=== PATIENT | male | born 1980 | race Caucasian/White ===

== ENCOUNTER 2020-07-18 18:49 | Emergency (ER) | payer OTHER, SELFPAY ==
[2020-07-18 19:03] VITALS: BP 130/82; PULSE 72; RESP 16; TEMP 37.1; O2SAT 97; BMI 28.2
[2020-07-18] MEDS: Fluorescein Sodium STRIP 1 STRIP EYE-BOTH (19:15)
[2020-07-18] MEDS: Tetracaine HCl/PF 0.5% Oph Sol 4 ML DROPS 1 DROP EYE-BOTH (19:15)
--- NOTE | 2020-07-18 19:29 | ED_ITS ---
HPI - Eye Problem General Chief complaint: Eye Problems Stated complaint: eye problem Time Seen by Provider: 07/18/20 18:59 Source: patient Mode of arrival: ambulatory Limitations: no limitations History of Present Illness HPI Narrative: 40-year-old male previously healthy here with eye irritation, pain and some blurry vision to the left eye after getting saw dust in his eye. chief complaint: eye pain and eye redness Onset (ago): hour(s) Onset description: sudden Duration: constant Location: left eye Eye Symptoms: redness, pain and foreign body sensation Place: home Mechanism: none Severity: mild Associated symptoms: none Treatments Prior to Arrival: none Related Data Previous Rx's Medication Instructions Recorded erythromycin 0.5 inch OPHTHALMIC (EYE) BID 7 07/18/20 Days #1 g ibuprofen 800 mg PO Q8H PRN #20 tab 07/18/20 Allergies Allergy/AdvReac Type Severity Reaction Status Date / Time shellfish derived Allergy Difficulty Verified 07/18/20 19:03 Breathing FRUIT Allergy Unknown ITCHY Uncoded 04/04/20 16:21 THROAT tree fruit Allergy Unknown hives Uncoded 01/18/20 00:00 Review of Systems Review of Systems: Yes all other systems are reviewed and are negative Constitutional: Constitutional: Reports no additional constitutional compl aints, Denies body ache(s), Denies chills, Denies fever(s), Denies headache(s) and Denies weakness Eyes: Eyes: Reports no additional eye complaints, Denies change in vision, Reports irritation, Reports eye pain and Reports photophobia ENT: Reports system reviewed and no additional complaints, except as documented, Denies dizziness, Denies headache(s), Denies nasal congestion, Denies nasal discharge and Denies neck pain Cardiovascular: Cardiovascular: Reports no additional cardiovascular complaints, Denies chest pain, Denies leg edema and Denies dyspnea Respiratory: Respiratory: Reports no additional respiratory complaints, Denies cough and Denies dyspnea Gastrointestinal: Gastrointestinal: Reports no additional gastrointestinal complaints, Denies abdominal pain, Denies diarrhea, Denies nausea and Denies vomiting Genitourinary: Genitourinary: Denies urinary incontinence Musculoskeletal: Musculoskeletal: Reports no additional musculoskeletal complaints, Denies back pain, Denies arthralgias, Denies joint swelling, Denies neck pain, Denies numbness and Denies tingling Integumentary/Breasts: Skin/Breast: Reports system reviewed and no additional complaints, except as docu and Denies rash Neurologic: Reports system reviewed and no additional complaints, except as documented, Denies Abnormal speech present, Denies dizziness, Denies headach e(s), Denies numbness, Denies tingling and Denies weakness PMFSH Past Medical History Attestation statement: The following information was validated with the patient. Source: old records reviewed and nursing notes reviewed Medical History Erectile dysfunction History of opioid abuse Seasonal allergies Surgical History History of amblyopia Family History Family History Father HTN (hypertension) Stroke Mother Hypothyroidism Anxiety Stroke Diabetes mellitus HTN (hypertension) Sister HTN (hypertension) Paternal Grandfather No problems noted. Paternal Grandmother Alzheimer's disease Brother No problems noted. Sister No problems noted. Daughter No problems noted. Daughter No problems noted. Social History Social History Smoking Status: Never smoker Use of substances other than those prescribed or required for medical reasons: No Advance Directives: No Physical Exam Vital Signs: Vital Signs: Last Vital Signs Temp 98.8 F 07/18/20 19:03 Pulse 72 07/18/20 19:03 Resp 16 07/18/20 19:03 BP 130/82 07/18/20 19:03 Pulse Ox 97 07/18/20 19:03 Body Mass Index 28.2 Const: General: cooperative, healthy appearing, comfortable and no acute distress Orientation/consciousness: patient oriented x3 Limitations: no limitations HENMT: Head: Yes normal to inspection Ears: hearing grossly normal bilaterally General nose exam: Normal external nose present Face and sinus: Yes normal facial exam Mouth: Normal oral and palatal mucosa present Throat: Yes posterior oropharynx normal Eyes: General: appearance normal, both eyes and all related structures Visual Akins: normal visual akins by confrontation Alignment and Position: alignment normal Periorbital: periorbital findings normal Eyelids: Yes eyelids normal Conjunctivae: conjunctival abnormal left conjunctival injection Sclerae: sclerae normal Corneas: corneas abnormal on the left (At the 3 o'clock position there is a abrasion over the cornea. No foreign body ) and fluorescein used Pupils: Equal, round and reactive pupils present Direct Ophthalmoscopy: photophobia Neck: Neck: Yes normal visual inspection Chest: Chest palpation & inspection: normal inspection of the chest Resp: Effort & Inspection: normal respiratory effort Auscultation: clear to auscultation bilaterally Cardio: Rate: regular rate Rhythm: regular rhythm Peripheral pulses: Peripheral pulses 2+ throughout GI: Inspection: Yes normal to inspection Palpation (GI): Soft to palpation and nontender Auscultation: normal bowel sounds Back/Spine/Pelvis: Thoracic/Lumbar Spine: thoracic and lumbar spine normal to inspection Skin: General skin exam: no rashes or lesions noted Neuro: General: patient oriented x3, no focal motor deficits and normal sensation to monofilament Cranial nerves: Yes Equal, round and reactive pupils present Cognition (Neuro): normal cognition Speech: No Abnormal speech present Gait exam (Neuro): Normal gait present Motor exam (neuro): 5/5 motor strength present throughout Extrem: General: Yes normal to inspection Course Course Course Narrative: Left eye corneal abrasion. The visual acuity. Patient was given erythromycin ointment to the left eye. Will have him follow up outpatient with Ophthalmology. Reviewed worrisome signs and symptoms and when to return to the emergency department. Comfortable discharge home. Discharge Plan Discharge Clinical Impression: Corneal abrasion Qualifiers: Encounter type: initial encounter Laterality: left Qualified Code(s): S05.02XA - Injury of conjunctiva and corneal abrasion without foreign body, left eye, initial encounter Patient Disposition: Home, Self-Care Instructions: Corneal Abrasion (ED) Additional Instructions: Cool compresses, rest the eyes Typically improves after couple of days if no improvement for 5 days follow-up with Dr. Lopez from Ophthalmology Prescriptions: New erythromycin 5 mg/gram (0.5 %) ointment 0.5 inch ophthalmic (eye) BID 7 Days Qty: 1 RF: 0 ibuprofen 800 mg tablet 800 mg PO Q8H PRN (Reason: pain) Qty: 20 RF: 0 Referrals: Bill Lopez [Physician] - 5 days (if no better ) Interventions: ED Discharge Assessment Last Done: 07/18/20 19:37 Discharge Date/Time: 07/18/20 19:37
[2020-07-18] MEDS: Erythromycin Base 0.5% Oph Oin 1 GM TUBE 1 CM EYE-LEFT (19:31)
== END 2020-07-18 19:37 | disposition home or self-care (01) ==
PROVIDERS: Emergency Provider Emergency Medicine
DX: S05.02XA Injury of conjunctiva and corneal abrasion without foreign body, left eye, initial encounter (principal); H57.12 Ocular pain, left eye; X58.XXXA Exposure to other specified factors, initial encounter; Y93.9 Activity, unspecified; Y92.9 Unspecified place or not applicable; Y99.9 Unspecified external cause status; Z79.899 Other long term (current) drug therapy
CPT/HCPCS: 99283

== ENCOUNTER 2021-01-13 10:28 | Emergency (ER) | payer OTHER, SELFPAY ==
--- NOTE | ~2021-01-13 | XR_ITS ---
EXAMINATION: XR FINGER, LEFT CLINICAL INFORMATION: Trauma COMPARISON: None TECHNIQUE: Three views of the left third. FINDINGS: The bones and soft tissues are normal. No fracture. Alignment is anatomic. Joint spaces are normal. XR/XR finger LT min 2V IMPRESSION: Unremarkable exam.
[2021-01-13 11:15] VITALS: BP 140/87; PULSE 80; RESP 18; TEMP 36.8; O2SAT 97; BMI 26.4
--- NOTE | 2021-01-13 12:12 | ED.EXTPRO ---
HPI - Extremity Problem General Chief complaint: Extremity Injury, Upper Stated complaint: finger injury Time Seen by Provider: 01/13/21 12:12 Source: patient Mode of arrival: ambulatory Limitations: no limitations History of Present Illness HPI Narrative: 40 y/o male presenting to the ED from home c/o left index finger pain after he injured it yesterday. He was helping his daughter make her bed and when he shoved his hand down into the blankets between the wall and bed, he jammed his middle finger. When he took it out the tip was bent laterally. He pulled it back into position and heard a pop. He reports continued pain and discomfort this morning. He is able to complete flex and extend the finger but it is uncomfortable. No lacerations or ecchymosis or swelling. MD Complaint: joint paint Onset (ago): day(s) Pain Consistency: constant Location: left and upper extremity Severity scale (1-10): 5 Quality: aching Radiation: none Relieving factors: immobilization and rest Exacerbating factors: range of motion and palpation Associated symptoms: denies other symptoms Related Data Home Medications Medication Instructions Recorded Confirmed trazodone 50 mg tablet 50 mg PO BEDTIME 08/29/20 09/02/20 Previous Rx's Medication Instructions Recorded ibuprofen 800 mg PO Q8H PRN #20 tab 07/18/20 buspirone 5 mg tablet 5 mg PO TID #90 tab 08/29/20 Allergies Allergy/AdvReac Type Severity Reaction Status Date / Time shellfish derived Allergy Difficulty Verified 01/13/21 11:15 Breathing tree fruit Allergy Intermediate hives Uncoded 01/13/21 11:15 FRUIT Allergy Mild ITCHY Uncoded 01/13/21 11:15 THROAT Review of Systems Review of Systems: Constitutional: No Fever, No Chills Gastrointestinal: + Nausea, No Vomiting Musculoskeletal: + joint pain, No Myalgias Skin: No Skin Lesions, No rash Neuro: No Weakness, No Numbness Heme/Lymph: No Bruising PMFSH Past Medical History Attestation statement: The following information was validated with the patient. Medical History Erectile dysfunction Generalized anxiety disorder History of opioid abuse Seasonal allergies Surgical History History of amblyopia Family History Family History Father HTN (hypertension) Stroke Mother Hypothyroidism Anxiety Stroke Diabetes mellitus HTN (hypertension) Sister HTN (hypertension) Paternal Grandfather No problems noted. Paternal Grandmother Alzheimer's disease Brother No problems noted. Sister No problems noted. Daughter No problems noted. Daughter No problems noted. Social History Social History (Updated 09/02/20 @ 00:38 by Kristina Doe MD) Substance Use Type: Opiates Advance Directives: No Advance Directives Information Provided: No Physical Exam Vital Signs: Vital Signs: Last Vital Signs Temp 98.3 F 01/13/21 11:15 Pulse 80 01/13/21 11:15 Resp 18 01/13/21 11:15 BP 140/87 H 01/13/21 11:15 Pulse Ox 97 01/13/21 11:15 Body Mass Index 26.4 Appearance: Alert. Oriented X3. No acute distress. HEENT: normal inspection CVS: Normal heart rate and rhythm. Pulses normal. Respiratory: No respiratory distress. Skin: Skin warm and dry. Normal skin color. Normal skin turgor. No rashes. Extremities: normal appearing left hand. DIP of left index finger with some tenderness on palpation, normal flexion and extension of all joints in all fingers. NV intact distally. equal investigation specialist strength Neuro: Oriented X 3. No motor deficit. No sensory deficit. Course Course Course Narrative: 40 yo male presenting with left index finger pain s/p possible dislocation and relocation of DIP joint yesterday. XR is normal. He has full function of his finger. Placed in splint for comfort. Will have him f/u with PCP for further management. Discharge Plan Discharge Clinical Impression: Finger sprain Qualifiers: Encounter type: initial encounter Finger: middle finger Sprain of finger site: unspecified site Laterality: left Qualified Code(s): S63.613A - Unspecified sprain of left middle finger, initial encounter Patient Disposition: Home, Self-Care Instructions: Finger Sprain (ED) Additional Instructions: Your x-ray was normal. Wear the finger splint as needed for comfort for the next 24-48 hours. Take motrin and/or tylenol as needed for pain. Follow up with your doctor as needed. Prescriptions: No Action ibuprofen 800 mg tablet 800 mg PO Q8H PRN (Reason: pain) Qty: 20 RF: 0 trazodone 50 mg tablet 50 mg PO BEDTIME RF: 0 buspirone 5 mg tablet 5 mg PO TID Qty: 90 RF: 0 Interventions: ED Discharge Assessment Last Done: 01/13/21 13:57 Discharge Date/Time: 01/13/21 13:57
[2021-01-13] MEDS: Ketorolac Tromethamine 30 MG/ML VIAL IM (12:34)
== END 2021-01-13 13:57 | disposition home or self-care (01) ==
PROVIDERS: Emergency Provider Emergency Medicine Emergency Medical Services; PCP Internal Medicine
DX: S63.611A Unspecified sprain of left index finger, initial encounter (principal); W23.1XXA Caught, crushed, jammed, or pinched between stationary objects, initial encounter; Y93.89 Activity, other specified; Y92.003 Bedroom of unspecified non-institutional (private) residence as the place of occurrence of the external cause; Y99.9 Unspecified external cause status
CPT/HCPCS: 29130; 73140; 96372; 99283; 99284; J1885

== ENCOUNTER 2021-02-02 17:27 | Emergency (ER) | payer OTHER, SELFPAY ==
[2021-02-02 17:46] VITALS: BP 133/89; PULSE 92; RESP 18; TEMP 37.1; O2SAT 98; BMI 26.3
--- NOTE | 2021-02-02 17:46 | MHC.RECOVSUP ---
? Reason for consult Recovery Support o Current location: ED Waiting Room o Identified substance use concern: Fentanyl - Withdrawal - Support ? Intervention: o Community resources provided o Harm reduction discussion ? Plan: o Referral to [facility] o Patient to follow up with [facility] after discharge ? Additional information: Patient withdrawing from Fentanyl.. Tried took a suboxone to deal with withdrawal and had a bad reaction.. Patient stated that he want help.. I Provided patient with [facility] walk in information so patient could start MAT.
[2021-02-02 18:25] LABS: Glucose Urine UA NEG (NEG); Leukocyte Esterase Urine NEG (NEG); Nitrite Urine NEG (NEG); Specific Gravity - Urine 1.025 (1.005-1.025); Urine Blood NEG (NEG); Urine Ketones 15 MG/DL (NEG); Urine Protein 1+ MG/DL (NEG-TRACE)
[2021-02-02 18:28] LABS: Appearance Urine CLEAR; Color Urine YELLOW
[2021-02-02 18:37] LABS: Amorphous Sediment Urine TRACE /LPF; Bacteria Urine TRACE /LPF; RBC Urine 0 /HPF (0); Squamous Epithelial Cell Urine TRACE /LPF; WBC Urine 0 /HPF (0-4)
[2021-02-02 19:27] LABS: Amphetamine Screen Urine Not Detected (Not Detect); Barbiturates, Urine Not Detected (Not Detect); Benzodiazepines Screen Urine Not Detected (Not Detect); Cannabinoid Screen Urine Not Detected (Not Detect); Cocaine Screen Urine Not Detected (Not Detect); Opiate Screen Urine Not Detected (Not Detect); Phencyclidine Screen Urine Not Detected (Not Detect)
--- NOTE | 2021-02-02 21:36 | ED.GENADULT ---
HPI - General Adult General Chief complaint: General Medical Stated complaint: Withdrawal Time Seen by Provider: 02/02/21 21:24 Source: patient Mode of arrival: ambulatory History of Present Illness HPI narrative: 40-year-old male with known heroin dependence and has been in detox programs previously took Suboxone today and then took additional drugs an hour later. Patient states that he is suffering mild withdrawal with 2 episodes of diarrhea. Otherwise, he denies fever, chills, chest pain/palpitations, nausea/vomiting. Patient denies suicidal or homicidal ideations, but would like detox but is unwilling to go to an inpatient program and prefers outpatient resources so that he can continue to perform his job. Related Data Home Medications Medication Instructions Recorded Confirmed trazodone 50 mg tablet 50 mg PO BEDTIME 08/29/20 09/02/20 Previous Rx's Medication Instructions Recorded ibuprofen 800 mg PO Q8H PRN #20 tab 07/18/20 buspirone 5 mg tablet 5 mg PO TID #90 tab 08/29/20 Allergies Allergy/AdvReac Type Severity Reaction Status Date / Time shellfish derived Allergy Difficulty Verified 01/13/21 11:15 Breathing tree fruit Allergy Intermediate hives Uncoded 01/13/21 11:15 FRUIT Allergy Mild ITCHY Uncoded 01/13/21 11:15 THROAT Review of Systems Review of Systems: Pertinent positives and negatives as stated in HPI 10 point review of systems is otherwise negative. [facility] Past Medical History Source: nursing notes reviewed Medical History Erectile dysfunction Generalized anxiety disorder History of opioid abuse Seasonal allergies Surgical History History of amblyopia Family History Family History Father HTN (hypertension) Stroke Mother Hypothyroidism Anxiety Stroke Diabetes mellitus HTN (hypertension) Sister HTN (hypertension) Paternal Grandfather No problems noted. Paternal Grandmother Alzheimer's disease Brother No problems noted. Sister No problems noted. Daughter No problems noted. Daughter No problems noted. Social History Social History Substance Use Type: Opiates Advance Directives: No Advance Directives Information Provided: No Physical Exam Vital Signs: Vital Signs: Last Vital Signs Temp 98.8 F 02/02/21 17:46 Pulse 92 02/02/21 17:46 Resp 18 02/02/21 17:46 BP 133/89 02/02/21 17:46 Pulse Ox 98 02/02/21 17:46 Body Mass Index 26.3 VITAL SIGNS: Reviewed. GENERAL: Well developed, well nourished, in no acute distress. HEAD: Normocephalic/atraumatic EYES: PERRLA, EOMI OROPHARYNX: no oral lesions noted, posterior pharynx clear NECK: Supple, no adenopathy LUNGS: Normal breath sounds. No adventitious sounds or accessory muscle use. SpO2<98> CARDIOVASCULAR: Regular rate and rhythm without noted murmurs ABDOMEN: Soft, non-tender, non-distended with bowel sounds. SKIN: Inspection of the skin reveals no rashes, no pallor, no diaphoresis NEUROLOGIC: Alert and oriented x 4. Strength and sensation to light touch were grossly intact x 4, no tremulousness. Course Course Course Narrative: 40-year-old male with history and clinical presentation consistent with mild withdrawal and anxiety. Patient will receive a 1 time hydroxyzine 25 mg and be discharged home in stable condition with a list recovery resources. Medical Decision Making Lab Data Labs: Lab Results 02/02/21 02/02/21 Range/Units 18:13 18:13 Urine Color YELLOW Urine Appearance CLEAR Urine pH 6.0 (5.0-8.0) Ur Specific [place] 1.025 (1.005-1.025) Urine Protein 1+ H (NEG-TRACE) MG/DL Urine Glucose (UA) NEG (NEG) MG/DL Urine Ketones 15 (NEG) MG/DL Urine Blood NEG (NEG) Urine Nitrite NEG (NEG) Ur Leukocyte Esterase NEG (NEG) Urine RBC 0 (0) /HPF Urine WBC 0 (0-4) /HPF Ur Squamous Epith Cells TRACE /LPF Amorphous Sediment TRACE /LPF Urine Bacteria TRACE /LPF Urine Opiates Screen Not Detected (Not Detect) Ur Barbiturates Screen Not Detected (Not Detect) Ur Phencyclidine Scrn Not Detected (Not Detect) Ur Amphetamines Screen Not Detected (Not Detect) U Benzodiazepines Scrn Not Detected (Not Detect) Urine Cocaine Screen Not Detected (Not Detect) U Marijuana (THC) Screen Not Detected (Not Detect) Discharge Plan Discharge Clinical Impression: Anxiety, Opioid dependence Patient Disposition: Home, Self-Care Instructions: Opioid Use Disorder (ED), Anxiety (ED) Additional Instructions: Please follow-up with your physician in the morning for re-evaluation. You have been provided with a list of outpatient resources for detox. Return to the ER for acute worsening of symptoms. Prescriptions: No Action ibuprofen 800 mg tablet 800 mg PO Q8H PRN (Reason: pain) Qty: 20 RF: 0 trazodone 50 mg tablet 50 mg PO BEDTIME RF: 0 buspirone 5 mg tablet 5 mg PO TID Qty: 90 RF: 0 Referrals: Kristina Doe MD [Primary Care Provider] - 2 days (Please re-evaluate patient after seen here in the emergency room for requests of outpatient detox.)
[2021-02-02] MEDS: hydrOXYzine HCL 25 MG TABLET PO (21:48)
== END 2021-02-02 21:49 | disposition home or self-care (01) ==
PROVIDERS: Emergency Provider Student in an Organized Health Care Education/Training Program; PCP Internal Medicine
DX: F11.23 Opioid dependence with withdrawal (principal); F41.1 Generalized anxiety disorder; F43.0 Acute stress reaction; Z79.899 Other long term (current) drug therapy
CPT/HCPCS: 80307; 81001; 99283

== ENCOUNTER 2021-02-03 09:12 | Outpatient (REF) | payer OTHER, SELFPAY ==
[2021-02-06 07:14] LABS: Codeine, Ur NEGATIVE; Hydrocodone, Ur NEGATIVE; Morphine, Ur NEGATIVE; Oxycodone, Ur NEGATIVE
[2021-02-06 07:15] LABS: Hydromorphone, Ur NEGATIVE; Norhydrocodone, Ur NEGATIVE; Noroxycodone, Ur NEGATIVE; Oxymorphone, Ur NEGATIVE
== END 2021-02-03 09:13 | disposition home or self-care (01) ==
LOC: HO.LAB 09:12
PROVIDERS: PCP Internal Medicine; Visit Provider Internal Medicine
DX: F41.1 Generalized anxiety disorder (principal); F11.11 Opioid abuse, in remission
CPT/HCPCS: 80305; 80354; 80364; 80365

== ENCOUNTER 2021-02-11 13:22 | Outpatient (REF) | payer OTHER, SELFPAY ==
[2021-02-17 09:41] LABS: Codeine, Ur NEGATIVE; Hydrocodone, Ur NEGATIVE; Hydromorphone, Ur NEGATIVE; Morphine, Ur NEGATIVE; Norhydrocodone, Ur NEGATIVE; Oxycodone, Ur NEGATIVE; Oxymorphone, Ur NEGATIVE
[2021-02-17 09:42] LABS: Noroxycodone, Ur NEGATIVE
== END 2021-02-11 13:23 | disposition home or self-care (01) ==
LOC: HO.LAB 13:22
PROVIDERS: Nurse Practitioner Psychiatric/Mental Health
DX: F11.99 Opioid use, unspecified with unspecified opioid-induced disorder (principal)
CPT/HCPCS: 80305; 80354; 80364; 80365

== ENCOUNTER → 2021-03-11 15:39 | Outpatient (BNVA) | payer OTHER, SELFPAY | PROVIDERS: Visit Provider Internal Medicine | DX: F11.20 Opioid dependence, uncomplicated (principal); Z51.81 Encounter for therapeutic drug level monitoring; Z79.899 Other long term (current) drug therapy | CPT/HCPCS: 80305 ==

== ENCOUNTER → 2021-03-19 16:15 | Outpatient (BNVA) | payer OTHER, SELFPAY | PROVIDERS: PCP Internal Medicine; Visit Provider Internal Medicine | DX: Z51.81 Encounter for therapeutic drug level monitoring (principal); F11.90 Opioid use, unspecified, uncomplicated | CPT/HCPCS: 80305 ==

== ENCOUNTER 2021-03-27 18:18 | Emergency (ER) | payer OTHER, SELFPAY ==
--- NOTE | ~2021-03-27 | US_ITS ---
EXAMINATION: US SCROTUM CLINICAL INFORMATION: Bilateral testicular pain. COMPARISON: None TECHNIQUE: A sonogram of the scrotum was performed assessing simms-scale appearance and color Doppler flow. Spectral Doppler analysis of the arterial and venous flow were performed in the testes bilaterally. FINDINGS: RIGHT: Right testicle measures 4 x 1.5 x 3.3 cm, volume 10.4 mL. No focal testicular parenchymal lesions are visualized. Spectral Doppler analysis of the arterial and venous flow is normal in the right testis. Right epididymal head is normal in size. No right hydrocele or varicocele is seen. Right epididymal Doppler flow is normal. LEFT: Left testicle measures 3.9 x 1.7 x 2.5 cm, volume 8.5 mL. No focal testicular parenchymal lesions are visualized. Spectral Doppler analysis of the arterial and venous flow is normal in the left testis. Left epididymal head is normal in size. Trace left-sided hydrocele. No left-sided varicocele. Left epididymal Doppler flow is normal. US/US scrotum doppler IMPRESSION: Trace left-sided hydrocele. Otherwise unremarkable examination.
[2021-03-27 18:28] VITALS: BP 139/84; PULSE 72; RESP 16; TEMP 36.9; O2SAT 98; BMI 25.0
[2021-03-27 20:00] VITALS: BP 145/96; PULSE 86; RESP 15; TEMP 36.7; O2SAT 99
--- NOTE | 2021-03-27 21:25 | ED_ITS ---
HPI - General Adult General Chief complaint: General Medical Stated complaint: Groin pain Time Seen by Provider: 03/27/21 21:24 Source: patient and old records reviewed Mode of arrival: ambulatory Limitations: no limitations History of Present Illness HPI narrative: Patient complaining of severe testicular pain radiating to his bladder area for the past 2 days. Denies history of similar issues. No dysuria. No penile discharge. Denies sexual contact in at least a month. He recently stopped using testosterone. He recently started taking Suboxone for opioid use disorder. His last dose was this morning, 4 mg. He states he took extra opioid today because of the pain. He is unable to get into a Suboxone clinic for a week and he is out of medicine as of today. No nausea vomiting diarrhea or constipation. No recent traumas or other causative factors Related Data Home Medications Medication Instructions Recorded Confirmed trazodone 50 mg tablet 50 mg PO BEDTIME 08/29/20 02/05/21 Previous Rx's Medication Instructions Recorded ibuprofen 800 mg tablet 800 mg PO Q8H PRN #20 tab 07/18/20 buspirone 5 mg tablet 5 mg PO TID #90 tab 08/29/20 buprenorphine 300 mg/1.5 mL 300 mg SUBCUT ONCE 28 Days #42 ml 02/17/21 solution,exten.rel.subcutaneous syringe (Sublocade) buprenorphine 8 mg-naloxone 2 mg 2 film SUBLINGUAL DAILY 7 Days #14 03/19/21 sublingual film (Suboxone) ea clonidine HCl 0.1 mg tablet 0.1 mg PO TID 7 Days #21 tab 03/21/21 hydroxyzine pamoate 25 mg capsule 25 mg PO TID PRN 7 Days #21 cap 03/21/21 (Vistaril) buprenorphine 8 mg-naloxone 2 mg 1 film SUBLINGUAL DAILY #6 ea 03/27/21 sublingual film (Suboxone) Allergies Allergy/AdvReac Type Severity Reaction Status Date / Time shellfish derived Allergy Difficulty Verified 01/13/21 11:15 Breathing tree fruit Allergy Intermediate hives Uncoded 01/13/21 11:15 FRUIT Allergy Mild ITCHY Uncoded 01/13/21 11:15 THROAT Review of Systems Constitutional: Comments: Patient with chills but denies fevers. He states the chills are from the pain Cardiovascular: Cardiovascular: Denies chest pain and Denies dyspnea Respiratory: Respiratory: Denies dyspnea Gastrointestinal: Comments: Low abdominal pain. No nausea vomiting diarrhea or constipation no dysuria hematuria hesitancy or frequency Genitourinary: Comments: Bilateral testicular pain without swelling. No penile discharge. No penile lesions. Musculoskeletal: Musculoskeletal: Reports no additional musculoskeletal complaints PMFSH Past Medical History Medical History Erectile dysfunction Generalized anxiety disorder History of opioid abuse Opioid use disorder Seasonal allergies Surgical History History of amblyopia Family History Family History Father HTN (hypertension) Stroke Mother Hypothyroidism Anxiety Stroke Diabetes mellitus HTN (hypertension) Sister HTN (hypertension) Paternal Grandfather No problems noted. Paternal Grandmother Alzheimer's disease Brother No problems noted. Sister No problems noted. Daughter No problems noted. Daughter No problems noted. Social History Social History Alcohol intake: unknown Patient Tobacco Use Status: Never used Tobacco Use of substances other than those prescribed or required for medical reasons: Yes Substance Use Type: Prescription Drugs Substance Use Frequency: Chronic Longstanding Last Used Substance: Weeks (ago) Any prior treatment program specific to substance use: No Advance Directives: No Advance Directives Information Provided: No Physical Exam Vital Signs: Vital Signs: Last Vital Signs Temp 98.1 F 03/27/21 20:00 Pulse 86 03/27/21 20:00 Resp 15 03/27/21 20:00 BP 145/96 H 03/27/21 20:00 Pulse Ox 99 03/27/21 20:00 Body Mass Index 25.0 Const: Other: Appears uncomfortable. Orientation/consciousness: patient or iented x3 Limitations: no limitations HENMT: Head: Yes normal to inspection Resp: Other: Clear and equal bilaterally with good air entry Cardio: Other: Regular rate and rhythm no murmurs rubs gallops GI: Other: Low abdominal tenderness to palpation with some guarding but no rebound. Tenderness is greatest in the suprapubic area. No upper abdominal tenderness. No focal right-sided tenderness : Other: Bilateral testicular tenderness without obvious swelling. No scrotal induration. No masses palpated. Penis without lesions. No discharge Skin: Other: No rash or other lesions noted Neuro: General: patient oriented x3 Psych: Other: Appears anxious Course Course Course Narrative: Bilateral testicular pain hip and lower suprapubic pain. Epididymitis, orchitis, prostatitis, urinary tract infection. Sexually transmitted infection possible the patient denies section at least a month. Appendicitis possible but no right-sided localizing symptoms. Torsion less likely as it is bilateral testicular discomfort. Ultrasound ordered. Labs and urinalysis 11:38 p.m.. Patient states he feels much better. Pain is down to a minimum. Workup in the emergency department is reassuring with normal labs. Ultrasound shows no evidence of torsion or epididymal orchitis. Re-examination shows no lower abdominal tenderness. Given these findings will discharge home. I discussed with him also strategies for Suboxone maintenance. I will give him a bridge prescription to hold him over until his next appointment. Medical Decision Making Lab Data Result diagrams: 03/27/21 21:26 03/27/21 21: Labs: Lab Results 03/27/21 03/27/21 03/27/21 Range/Units 21:26 21:26 21:26 WBC 6.1 (4.8-10.8) X10*3/uL RBC 5.90 H (4.60-5.80) X10*6/uL Hgb 15.4 (14.0-18.0) g/dl Hct 46.7 (42-52) % MCV 79.2 L (80-98) fL MCH 26.1 L (27.0-33.0) pg MCHC 33.0 (31.0-36.0) g/dl RDW 13.1 (11.0-16.0) % Plt Count 199 (160-400) X10*3/uL MPV 10.4 (9.4-12.4) fL Immature Gran % (Auto) 0.3 (0.0-0.4) % Neut % (Auto) 49.7 (45-73) % Lymph % (Auto) 34.5 (20-40) % [place] % (Auto) 7.6 (2-11) % Eos % (Auto) 6.9 H (0-4) % Baso % (Auto) 1.0 (0-2) % Lymph # (Auto) 2.1 (1.2-4.9) X10*3/uL [place] # (Auto) 0.5 (0.1-1.2) X10*3/uL Eos # (Auto) 0.4 (0.0-0.4) X10*3/uL Baso # (Auto) 0.1 (0.0-0.2) X10*3/uL Abs Immat Gran (auto) 0.02 (0.00-0.03) X10*3/uL Absolute Neuts (auto) 3.0 (2.0-8.3) X10*3/uL Absolute Nucleated RBC 0.000 (0.0-0.012) X10*3/uL Nucleated RBC % (auto) 0.0 (0.0-0.2) /100WBC Sodium 141 (135-145) mmol/L Potassium 4.3 (3.3-5.1) mmol/L Chloride 103 (96-108) mmol/L Carbon Dioxide 30 H (22-29) mmol/L Anion Gap 12 (12-20) BUN 19 H (9-16) mg/dL Creatinine 1.00 (0.5-1.4) mg/dL Estim Creat Clear Calc 91.8 Estimated GFR > 60 Random Glucose 86 (60-115) mg/dL Calcium 10.0 (8.4-10.2) mg/dL Total Bilirubin 0.5 (0.0-1.0) mg/dL AST 19 (5-37) U/L ALT 37 (0-40) U/L Alkaline Phosphatase 90 (39-117) U/L Total Protein 7.4 (6.5-8.0) g/dL Albumin 4.5 (3.5-5.0) g/dL Urine Color YELLOW Urine Appearance CLEAR Urine pH 6.0 (5.0-8.0) Ur Specific [place] >= 1.030 H (1.005-1.025) Urine Protein NEG (NEG-TRACE) MG/DL Urine Glucose (UA) NEG (NEG) MG/DL Urine Ketones NEG (NEG) MG/DL Urine Blood NEG (NEG) Urine Nitrite NEG (NEG) Ur Leukocyte Esterase NEG (NEG) Discharge Plan Discharge Clinical Impression: Pain in both testicles, Opioid use disorder Abdominal pain Qualifiers: Abdominal location: lower abdomen, unspecified Qualified Code(s): R10.30 - Lower abdominal pain, unspecified Patient Disposition: Home, Self-Care Instructions: Testicle Pain (ED), Abdominal Pain (ED), Opioid Use Disorder (ED) Additional Instructions: Suboxone as we discussed. Return if worse. Prescriptions: New buprenorphine-naloxone [Suboxone] 8-2 mg film 1 film sublingual DAILY Qty: 6 RF: 0 No Action Sublocade 300 mg/1.5 mL solution, extended rel syringe 300 mg subcut ONCE 28 Days Qty: 42 RF: 1 clonidine HCl 0.1 mg tablet 0.1 mg PO TID 7 Days Qty: 21 RF: 0 hydroxyzine pamoate [Vistaril] 25 mg capsule 25 mg PO TID PRN (Reason: itching) 7 Days Qty: 21 RF: 0 ibuprofen 800 mg tablet 800 mg PO Q8H PRN (Reason: pain) Qty: 20 RF: 0 trazodone 50 mg tablet 50 mg PO BEDTIME RF: 0 buspirone 5 mg tablet 5 mg PO TID Qty: 90 RF: 0 buprenorphine-naloxone [Suboxone] 8-2 mg film 2 film sublingual DAILY 7 Days Qty: 14 RF: 0
[2021-03-27 21:31] LABS: MANUAL DIFF FLAG NO
[2021-03-27 21:32] LABS: Basophils Absolute Auto 0.1 X10*3/uL (0.0-0.2); Eosinophils Absolute Auto 0.4 X10*3/uL (0.0-0.4); Eosinophils Percent Auto 6.9 % (0-4); Hematocrit 46.7 % (42-52); Hemoglobin 15.4 g/dl (14.0-18.0); Imm Gran Abs Auto 0.02 X10*3/uL (0.00-0.03); Imm Gran Pct Auto 0.3 % (0.0-0.4); Lymphocytes Absolute Auto 2.1 X10*3/uL (1.2-4.9); Lymphocytes Percent Auto 34.5 % (20-40); Mean Corpuscular Hemoglobin 26.1 pg (27.0-33.0); Mean Corpuscular Volume 79.2 fL (80-98); Mean Platelet Volume 10.4 fL (9.4-12.4); Monocytes Absolute Auto 0.5 X10*3/uL (0.1-1.2); Monocytes Percent Auto 7.6 % (2-11); Neutrophils Percent Auto 49.7 % (45-73); Platelet Count 199 X10*3/uL (160-400); Red Cell Distribution Width 13.1 % (11.0-16.0); White Blood Count 6.1 X10*3/uL (4.8-10.8)
[2021-03-27 21:33] LABS: Appearance Urine CLEAR; Color Urine YELLOW; Glucose Urine UA NEG (NEG); Leukocyte Esterase Urine NEG (NEG); Nitrite Urine NEG (NEG); Specific Gravity - Urine >= 1.030 (1.005-1.025); Urine Blood NEG (NEG); Urine Ketones NEG (NEG); Urine Protein NEG (NEG-TRACE)
[2021-03-27 21:45] LABS: Alanine Aminotransferase 37 U/L (0-40); Albumin Level 4.5 g/dL (3.5-5.0); Alkaline Phosphatase 90 U/L (39-117); Anion Gap 12 (12-20); Aspartate Amino Transferase 19 U/L (5-37); Bilirubin Total 0.5 mg/dL (0.0-1.0); Blood Urea Nitrogen 19 mg/dL (9-16); Carbon Dioxide 30 mmol/L (22-29); Chloride 103 mmol/L (96-108); Creatinine Clr Calc Pharmacy 91.8; Estimated Glomerular Filt Rate > 60; Glucose Random 86 mg/dL (60-115); Potassium 4.3 mmol/L (3.3-5.1); Sodium 141 mmol/L (135-145); Total Protein 7.4 g/dL (6.5-8.0)
[2021-03-27] MEDS: 0.9 % Sodium Chloride 1,000 ML 999 ML IV (22:04)
[2021-03-27] MEDS: Ketorolac Tromethamine 15 MG/ML VIAL 30 MG IVPUSH (22:04)
[2021-03-27] MEDS: ondansetron HCL 4 MG/2 ML VIAL IVPUSH (22:04)
== END 2021-03-27 23:52 | disposition home or self-care (01) ==
PROVIDERS: Emergency Provider Emergency Medicine; PCP Internal Medicine
DX: R10.30 Lower abdominal pain, unspecified (principal); N50.812 Left testicular pain; N50.811 Right testicular pain; F11.19 Opioid abuse with unspecified opioid-induced disorder
CPT/HCPCS: 36415; 80053; 81003; 85025; 93975; 96361; 96374; 96375; 99284; J1885; J2405

== ENCOUNTER → 2021-04-01 15:47 | Outpatient (BNVA) | payer OTHER, SELFPAY | PROVIDERS: PCP Internal Medicine; Visit Provider Internal Medicine | DX: Z51.81 Encounter for therapeutic drug level monitoring (principal); F11.90 Opioid use, unspecified, uncomplicated | CPT/HCPCS: 80305 ==

== ENCOUNTER 2021-04-09 14:07 | Outpatient (REF) | payer OTHER, SELFPAY ==
[2021-04-09 17:08] LABS: Fentanyl, urine POSITIVE (Not Detect)
== END 2021-04-09 14:08 | disposition home or self-care (01) ==
LOC: HO.LNP 14:07
PROVIDERS: PCP Internal Medicine; Visit Provider Internal Medicine
DX: F11.20 Opioid dependence, uncomplicated (principal); Z79.899 Other long term (current) drug therapy
CPT/HCPCS: 80307

== ENCOUNTER 2021-04-21 16:23 | Outpatient (REF) | payer OTHER, SELFPAY ==
[2021-04-21 18:38] LABS: Fentanyl, urine POSITIVE (Not Detect)
== END 2021-04-21 16:24 | disposition home or self-care (01) ==
LOC: HO.LNP 16:23
PROVIDERS: Visit Provider Internal Medicine
DX: F11.20 Opioid dependence, uncomplicated (principal); Z79.899 Other long term (current) drug therapy
CPT/HCPCS: 80305; 80307

== ENCOUNTER → 2021-04-29 16:06 | Outpatient (BNVA) | payer OTHER, SELFPAY | PROVIDERS: Visit Provider Internal Medicine | DX: F11.99 Opioid use, unspecified with unspecified opioid-induced disorder (principal); F41.1 Generalized anxiety disorder; J30.2 Other seasonal allergic rhinitis; Z91.013 Allergy to seafood; Z91.018 Allergy to other foods | CPT/HCPCS: 80305 ==

== ENCOUNTER 2021-05-05 14:37 | Outpatient (REF) | payer OTHER, SELFPAY ==
[2021-05-05 17:48] LABS: Fentanyl, urine POSITIVE (Not Detect)
== END 2021-05-05 14:38 | disposition home or self-care (01) ==
LOC: HO.LNP 14:37
PROVIDERS: Visit Provider Internal Medicine
DX: F11.20 Opioid dependence, uncomplicated (principal); Z79.899 Other long term (current) drug therapy
CPT/HCPCS: 80305; 80307

== ENCOUNTER → 2021-05-14 14:07 | Outpatient (BNVA) | payer OTHER, SELFPAY | PROVIDERS: Visit Provider Internal Medicine | DX: F11.99 Opioid use, unspecified with unspecified opioid-induced disorder (principal); N52.9 Male erectile dysfunction, unspecified; H53.009 Unspecified amblyopia, unspecified eye; F41.9 Anxiety disorder, unspecified; Z87.891 Personal history of nicotine dependence; J30.2 Other seasonal allergic rhinitis; Z91.013 Allergy to seafood; Z91.018 Allergy to other foods | CPT/HCPCS: 80305 ==

== ENCOUNTER → 2021-05-21 11:42 | Outpatient (BNVA) | payer OTHER, SELFPAY | PROVIDERS: Visit Provider Internal Medicine ==

== ENCOUNTER 2021-05-30 13:22 | Outpatient (REF) | payer OTHER, SELFPAY ==
[2021-05-30 17:46] LABS: Fentanyl, urine POSITIVE (Not Detect)
== END 2021-05-30 13:23 | disposition home or self-care (01) ==
LOC: HO.LNP 13:22
PROVIDERS: Visit Provider Internal Medicine
DX: F11.99 Opioid use, unspecified with unspecified opioid-induced disorder (principal); Z51.81 Encounter for therapeutic drug level monitoring
CPT/HCPCS: 80305; 80307

== ENCOUNTER → 2021-06-06 11:41 | Outpatient (BNVA) | payer OTHER, SELFPAY | PROVIDERS: Visit Provider Internal Medicine | DX: F11.20 Opioid dependence, uncomplicated (principal); Z51.81 Encounter for therapeutic drug level monitoring; Z79.899 Other long term (current) drug therapy | CPT/HCPCS: 80305 ==

== ENCOUNTER 2021-06-22 20:57 | Emergency (ER) | payer OTHER, SELFPAY ==
--- NOTE | ~2021-06-22 | CT_ITS ---
EXAMINATION: CT ABDOMEN AND PELVIS WITH CONTRAST CLINICAL INFORMATION: Epigastric pain COMPARISON: None TECHNIQUE: Multidetector volumetric images were obtained from the superior aspect of the liver through the pubic symphysis following administration 85 mL of Omnipaque 350 intravenous contrast. Sagittal and coronal reformatted images were obtained on the technologist's workstation. Oral contrast: No This CT examination was performed using dose optimization techniques as appropriate, variously including the following: *Automated exposure control *Adjustment of mA and/or kV according to patient size (this includes techniques or standardized protocols for targeted exams where dose is matched to indication/reason for exam; i.e. extremities or head) *Use of iterative reconstruction technique DLP: 456 mGy-cm FINDINGS: LUNG BASES: The visualized lung bases are unremarkable. LIVER, GALLBLADDER, AND BILIARY TREE: The liver is normal in size, shape, and attenuation. No focal hepatic lesion or biliary ductal dilatation is present. Gallbladder unremarkable. PANCREAS: Unremarkable. SPLEEN: Unremarkable. ADRENAL GLANDS: Unremarkable. KIDNEYS AND URETERS: The kidneys are normal in size, shape, and attenuation. No hydronephrosis, hydroureter, or calculi seen. No perinephric stranding. BLADDER: Unremarkable. GASTROINTESTINAL TRACT: The small and large bowel are unremarkable. The appendix is unremarkable. ABDOMINAL WALL: No significant hernia is appreciated. LYMPH NODES: Normal. VASCULAR: Unremarkable. PELVIC VISCERA: Unremarkable. OSSEOUS STRUCTURES: No acute or suspicious osseous abnormalities CT/CT abdomen pelvis w con IMPRESSION: No potential etiology for the patient's epigastric pain is identified.
[2021-06-22 21:00] VITALS: BP 139/87; PULSE 79; RESP 16; TEMP 36.9; O2SAT 99; BMI 25.8
[2021-06-22 22:00] VITALS: BP 148/100; PULSE 77; RESP 17; TEMP 37.2; O2SAT 98
--- NOTE | 2021-06-22 22:51 | ED_ITS ---
HPI - Abdominal Pain General Chief Complaint: Abdominal Pain Stated Complaint: Flu like symptoms Time Seen by Provider: 06/22/21 22:38 Source: patient Mode of arrival: ambulatory Limitations: no limitations History of Present Illness HPI narrative: Patient comes emergency room complaining of worsening epigastric pain. Patient states it has been there for 3 days. Patient states it is worse with food. Patient denies any vomiting or diarrhea. No fever chills. Related Data Home Medications Medication Instructions Recorded Confirmed trazodone 50 mg tablet 50 mg PO BEDTIME 08/29/20 02/05/21 bupropion HCl 150 mg 24 hr tablet, 150 mg PO QAM 04/09/21 extended release mirtazapine 15 mg tablet 15 mg PO BEDTIME 04/09/21 Previous Rx's Medication Instructions Recorded ibuprofen 800 mg tablet 800 mg PO Q8H PRN #20 tab 07/18/20 buspirone 5 mg tablet 5 mg PO TID #90 tab 08/29/20 buprenorphine 8 mg-naloxone 2 mg 1 film SUBLINGUAL DAILY #6 ea 03/27/21 sublingual film (Suboxone) buprenorphine 300 mg/1.5 mL 300 mg (1.5 mL) SUBCUT ONCE 28 04/16/21 solution,exten.rel.subcutaneous Days #1.5 ml syringe (Sublocade) clonidine HCl 0.1 mg tablet 0.1 mg PO TID 7 Days #21 tab 04/29/21 hydroxyzine pamoate 25 mg capsule 25 mg PO TID PRN 7 Days #21 cap 04/29/21 (Vistaril) clonidine HCl 0.1 mg tablet 0.1 mg PO TID PRN 3 Days #9 tab 05/21/21 hydroxyzine pamoate 25 mg capsule 25 mg PO TID PRN 7 Days #21 cap 05/21/21 (Vistaril) buprenorphine 8 mg-naloxone 2 mg 3 film SUBLINGUAL DAILY 14 Days 06/06/21 sublingual film (Suboxone) #42 ea omeprazole 40 mg capsule,delayed 40 mg PO DAILY #20 cap 06/23/21 release Allergies Allergy/AdvReac Type Severity Reaction Status Date / Time shellfish derived Allergy Difficulty Verified 06/06/21 12:06 Breathing tree fruit Allergy Intermediate hives Uncoded 05/21/21 11:56 FRUIT Allergy Mild ITCHY Uncoded 05/21/21 11:56 THROAT Review of Systems Review of Systems Constitutional : No Weight loss, No Fever, No Chills, No Night Sweats, No Fatigue, No Malaise ENT/Mouth : No Hearing loss, No Ear Pain, No Nasal Congestion, No Sinus Pain, No Hoarseness, No sore throat, No Rhinorrhea, No Swallowing Difficulty Eyes: No Eye Pain, No Swelling, No Redness, No Foreign Body, No Discharge, No Vision Changes Cardiovascular : No Chest Pain, No SOB, No Dyspnea on Exertion, No Orthopnea, No Edema, No Palpitations Respiratory : No Cough, No Sputum, No Wheezing, No Smoke Exposure, No Dyspnea Gastrointestinal : No Nausea, No Vomiting, No Diarrhea, No Constipation, complaining of epigastric pain worsened by meals. No Hematochezia, No Melena Genitourinary : no irregular bleeding, No Dysuria, No Urinary Frequency, No Hematuria, No Urinary Incontinence, No Urgency, No Flank Pain, No Urinary Flow Changes, No Hesitancy Musculoskeletal : No joint pain, No Myalgias, No Joint Swelling Skin : No Skin Lesions, No rash Neuro : No Weakness, No Numbness, No Paresthesias, No Loss of Consciousness, No Dizziness, No Headache Psych : No Anxiety/Panic, No Depression, No SI/HI/AH/VH, No Social Issues, Heme/Lymph: No Bruising, No Bleeding,No Lymphadenopathy Endocrine : No Polyuria, No Polydipsia, No Temperature Intolerance Physical Exam Vital Signs: Vital Signs: Last Vital Signs Temp 98.9 F 06/22/21 22:00 Pulse 81 06/22/21 23:54 Resp 18 06/22/21 23:54 BP 146/83 H 06/22/21 23:54 Pulse Ox 99 06/22/21 23:54 BMI result Body Mass Index 25.8 Const: Other: Appearance: Alert. Oriented X3. Looks very uncomfortable Eyes: Pupils equal, round and reactive to light. ENT: Pharynx normal. Neck: Normal inspection. Neck supple. No lymph nodes noted. No crepitus CVS: Normal heart rate and rhythm. Pulses normal. Normal S1 and S2 Respiratory: No respiratory distress. Breath sounds normal. No Wheezing. No rales Abdomen: Soft, negative Stubbs sign, no rebound, no guarding. Pain to deep palpation in epigastric area. No rigidity. No distention. Skin: Skin warm and dry. Normal skin color. Normal skin turgor. Extremities: No lower extremity edema. No Lacerations. No Rash Neuro: Oriented X 3. No motor deficit. No sensory deficit. Moving all extermities. No slurred speech. Course Course Course Narrative: After IV fluids, Pepcid, patient feels much better. I discussed with the patient his labs and imaging, patient likely having peptic ulcer disease versus gastritis. MDM - Abdominal Pain Lab Data Result diagrams: 06/22/21 22:51 06/22/21 22:51 Labs: Lab Results 06/22/21 06/22/21 Range/Units 22:51 22:51 WBC 9.4 (4.8-10.8) X10*3/uL RBC 5.40 (4.60-5.80) X10*6/uL Hgb 14.5 (14.0-18.0) g/dl Hct 43.0 (42.0-52.0) % MCV 79.6 L (80.0-98.0) fL MCH 26.9 L (27.0-33.0) pg MCHC 33.7 (31.0-36.0) g/dl RDW 14.0 (11.0-16.0) % Plt Count 208 (160-400) X10*3/uL MPV 10.1 (9.4-12.4) fL Immature Gran % (Auto) 1.0 H (0.0-0.4) % Neut % (Auto) 68.3 (45-73) % Lymph % (Auto) 15.5 L (20-40) % [place] % (Auto) 6.3 (2-11) % Eos % (Auto) 8.2 H (0-4) % Baso % (Auto) 0.7 (0-2) % Lymph # (Auto) 1.5 (1.2-4.9) X10*3/uL [place] # (Auto) 0.6 (0.1-1.2) X10*3/uL Eos # (Auto) 0.8 H (0.0-0.4) X10*3/uL Baso # (Auto) 0.1 (0.0-0.2) X10*3/uL Abs Immat Gran (auto) 0.09 H (0.00-0.03) X10*3/uL Absolute Neuts (auto) 6.4 (2.0-8.3) x10*3/uL Absolute Nucleated RBC 0.000 (0.0-0.012) X10*3/uL Nucleated RBC % (auto) 0.0 (0.0-0.2) /100WBC Sodium 139 (135-145) mmol/L Potassium 4.0 (3.3-5.1) mmol/L Chloride 100 (96-108) mmol/L Carbon Dioxide 30 H (22-29) mmol/L Anion Gap 13 (12-20) BUN 16 (9-16) mg/dL Creatinine 0.78 (0.5-1.4) mg/dL Estim Creat Clear Calc 113.6 Estimated GFR > 60 Random Glucose 99 (60-115) mg/dL Calcium 10.0 (8.4-10.2) mg/dL Total Bilirubin 0.7 (0.0-1.0) mg/dL Direct Bilirubin 0.2 (0.0-0.5) mg/dL AST 20 (5-37) U/L ALT 28 (0-40) U/L Alkaline Phosphatase 99 (39-117) U/L Total Protein 7.3 (6.5-8.0) g/dL Albumin 4.5 (3.5-5.0) g/dL Lipase 29 (8-78) U/L Discharge Plan Discharge Clinical Impression: Gastritis Qualifiers: Gastritis type: unspecified gastritis Chronicity: acute Patient Disposition: Home, Self-Care Instructions: Gastritis (ED) Additional Instructions: Please follow-up with your primary care physician tomorrow. If you have any worsening or new symptoms, please return to the emergency room or call 911 Prescriptions: New omeprazole 40 mg capsule,delayed release(DR/EC) 40 mg PO DAILY Qty: 20 RF: 0 No Action Sublocade 300 mg/1.5 mL solution, extended rel syringe 300 mg subcut ONCE 28 Days Qty: 1.5 RF: 1 ibuprofen 800 mg tablet 800 mg PO Q8H PRN (Reason: pain) Qty: 20 RF: 0 buprenorphine-naloxone [Suboxone] 8-2 mg film 1 film sublingual DAILY Qty: 6 RF: 0 trazodone 50 mg tablet 50 mg PO BEDTIME RF: 0 buspirone 5 mg tablet 5 mg PO TID Qty: 90 RF: 0 bupropion HCl 150 mg tablet extended release 24 hr 150 mg PO QAM RF: 0 mirtazapine 15 mg tablet 15 mg PO BEDTIME RF: 0 clonidine HCl 0.1 mg tablet 0.1 mg PO TID 7 Days Qty: 21 RF: 0 hydroxyzine pamoate [Vistaril] 25 mg capsule 25 mg PO TID PRN (Reason: itching) 7 Days Qty: 21 RF: 0 clonidine HCl 0.1 mg tablet 0.1 mg PO TID PRN (Reason: anxiety) 3 Days Qty: 9 RF: 0 hydroxyzine pamoate [Vistaril] 25 mg capsule 25 mg PO TID PRN (Reason: itching) 7 Days Qty: 21 RF: 0 buprenorphine-naloxone [Suboxone] 8-2 mg film 3 film sublingual DAILY 14 Days Qty: 42 RF: 0 PMFSH Past Medical History Medical History Erectile dysfunction Generalized anxiety disorder History of opioid abuse Opioid use disorder Seasonal allergies Surgical History History of amblyopia Family History Family History Father HTN (hypertension) Stroke Mother Hypothyroidism Anxiety Stroke Diabetes mellitus HTN (hypertension) Sister HTN (hypertension) Paternal Grandfather No problems noted. Paternal Grandmother Alzheimer's disease Brother No problems noted. Sister No problems noted. Daughter No problems noted. Daughter No problems noted. Social History Social History Household Members: Significant Other and Children Alcohol intake: never Patient Tobacco Use Status: Former Tobacco user e-Cigarette/Vaping Use: Currently Using Use of substances other than those prescribed or required for medical reasons: No Substance Use Type: Marijuana and Prescription Drugs Advance Directives: No Advance Directives Information Provided: No
[2021-06-22 22:55] LABS: MANUAL DIFF FLAG NO
[2021-06-22 22:57] LABS: Basophils Absolute Auto 0.1 X10*3/uL (0.0-0.2); Basophils Percent Auto 0.7 % (0-2); Eosinophils Absolute Auto 0.8 X10*3/uL (0.0-0.4); Eosinophils Percent Auto 8.2 % (0-4); Hemoglobin 14.5 g/dl (14.0-18.0); Imm Gran Abs Auto 0.09 X10*3/uL (0.00-0.03); Lymphocytes Absolute Auto 1.5 X10*3/uL (1.2-4.9); Lymphocytes Percent Auto 15.5 % (20-40); Mean Corpuscular HGB Conc 33.7 g/dl (31.0-36.0); Mean Corpuscular Hemoglobin 26.9 pg (27.0-33.0); Mean Corpuscular Volume 79.6 fL (80.0-98.0); Mean Platelet Volume 10.1 fL (9.4-12.4); Monocytes Absolute Auto 0.6 X10*3/uL (0.1-1.2); Monocytes Percent Auto 6.3 % (2-11); Neutrophils Absolute Auto 6.4 x10*3/uL (2.0-8.3); Neutrophils Percent Auto 68.3 % (45-73); Platelet Count 208 X10*3/uL (160-400); White Blood Count 9.4 X10*3/uL (4.8-10.8)
[2021-06-22] MEDS: Famotidine/PF 20 MG/2 ML VIAL IVPUSH (23:00)
[2021-06-22] MEDS: Morphine Sulfate 2 MG/ML CARTRIDGE IVPUSH (23:01)
[2021-06-22 23:11] LABS: Alanine Aminotransferase 28 U/L (0-40); Albumin Level 4.5 g/dL (3.5-5.0); Alkaline Phosphatase 99 U/L (39-117); Anion Gap 13 (12-20); Aspartate Amino Transferase 20 U/L (5-37); Bilirubin Direct 0.2 mg/dL (0.0-0.5); Bilirubin Total 0.7 mg/dL (0.0-1.0); Blood Urea Nitrogen 16 mg/dL (9-16); Carbon Dioxide 30 mmol/L (22-29); Chloride 100 mmol/L (96-108); Creatinine Clr Calc Pharmacy 113.6; Estimated Glomerular Filt Rate > 60; Glucose Random 99 mg/dL (60-115); Lipase 29 U/L (8-78); Sodium 139 mmol/L (135-145); Total Protein 7.3 g/dL (6.5-8.0)
[2021-06-22] MEDS: iohexoL 350 MG/ML 100 ML INFUS..BTL 85 ML IV (23:37)
[2021-06-22 23:54] VITALS: BP 146/83; PULSE 81; RESP 18; O2SAT 99
== END 2021-06-23 00:38 | disposition home or self-care (01) ==
PROVIDERS: Emergency Provider Emergency Medicine; PCP Internal Medicine
DX: K29.00 Acute gastritis without bleeding (principal)
CPT/HCPCS: 36415; 74177; 80053; 82248; 83690; 85025; 96374; 96375; 99284; J2270; Q9967

== ENCOUNTER → 2021-06-23 16:06 | Outpatient (BNVA) | payer OTHER, SELFPAY | PROVIDERS: PCP Internal Medicine; Visit Provider Internal Medicine | DX: F11.20 Opioid dependence, uncomplicated (principal); Z51.81 Encounter for therapeutic drug level monitoring; Z79.899 Other long term (current) drug therapy | CPT/HCPCS: 80305 ==

== ENCOUNTER → 2021-07-04 13:35 | Outpatient (BNVA) | payer OTHER, SELFPAY | PROVIDERS: Visit Provider Internal Medicine | DX: Z51.81 Encounter for therapeutic drug level monitoring (principal); F11.20 Opioid dependence, uncomplicated | CPT/HCPCS: 80305 ==

== ENCOUNTER → 2021-07-16 13:02 | Outpatient (BNVA) | payer OTHER, SELFPAY | PROVIDERS: Visit Provider Internal Medicine | DX: Z51.81 Encounter for therapeutic drug level monitoring (principal); F11.20 Opioid dependence, uncomplicated | CPT/HCPCS: 80305 ==

== ENCOUNTER → 2021-08-15 13:51 | Outpatient (BNVA) | payer OTHER, SELFPAY | PROVIDERS: Visit Provider Internal Medicine | DX: F11.20 Opioid dependence, uncomplicated (principal) | CPT/HCPCS: 80305; 96372; Q9992 ==

== ENCOUNTER 2022-02-04 05:34 | Emergency (ER) | payer OTHER, SELFPAY ==
[2022-02-04 06:14] VITALS: BP 116/88; PULSE 88; RESP 14; TEMP 36.3; O2SAT 99; BMI 27.4
--- NOTE | 2022-02-04 08:32 | ED_ITS ---
HPI - General Adult General Chief complaint: General Medical Stated complaint: withdrawal Time Seen by Provider: 02/04/22 08:23 Source: patient Mode of arrival: ambulatory Limitations: no limitations History of Present Illness HPI narrative: 41 yo male using about 100mg of oxycodone a day last used at 6pm then took a friends 10/17 suboxone at 2am - resulting in nausea/vomiting, diarrhea - incontinence. Comes in with withdrawal. He wants to go back on suboxone did well with it in the past. complaint: precipitated withdrawal Onset (ago): hour(s) (2am today ) Severity: moderate Relieving factors: none Exacerbating factors: other (took a suboxone) Associated symptoms: loss of appetite, malaise, nausea/vomiting, weakness and other (diarrhea) Treatments prior to arrival: none Related Data Home Medications Medication Instructions Recorded Confirmed trazodone 50 mg tablet 50 mg PO BEDTIME 08/29/20 02/05/21 bupropion HCl 150 mg 24 hr tablet, 150 mg PO QAM 04/09/21 extended release mirtazapine 15 mg tablet 15 mg PO BEDTIME 04/09/21 Previous Rx's Medication Instructions Recorded ibuprofen 800 mg tablet 800 mg PO Q8H PRN pain #20 tabs 07/18/20 buspirone 5 mg tablet 5 mg PO TID #90 tabs 08/29/20 clonidine HCl 0.1 mg tablet 0.1 mg PO TID 7 days #21 tabs 04/29/21 hydroxyzine pamoate 25 mg capsule 25 mg PO TID PRN itching 7 days 04/29/21 (Vistaril) #21 caps clonidine HCl 0.1 mg tablet 0.1 mg PO TID PRN anxiety 3 days 05/21/21 #9 tabs hydroxyzine pamoate 25 mg capsule 25 mg PO TID PRN itching 7 days 05/21/21 (Vistaril) #21 caps omeprazole 40 mg capsule,delayed 40 mg PO DAILY #20 caps 06/23/21 release buprenorphine 8 mg-naloxone 2 mg 3 film sublingual DAILY 14 days 07/04/21 sublingual film (Suboxone) #42 ea buprenorphine 8 mg-naloxone 2 mg 2 film sublingual DAILY 7 days #14 09/10/21 sublingual film (Suboxone) ea albuterol sulfate 90 mcg/actuation 1 inh inhalation QID PRN shortness 03/22/22 aerosol inhaler of breath or wheezing 30 days #6.7 grams buprenorphine 8 mg-naloxone 2 mg 1 film buccal BID #5 ea 02/04/22 sublingual film (Suboxone) Allergies Allergy/AdvReac Type Severity Reaction Status Date / Time shellfish derived Allergy Difficulty Verified 10/07/21 16:16 Breathing tree fruit Allergy Intermediate hives Uncoded 10/07/21 16:16 FRUIT Allergy Mild ITCHY Uncoded 10/07/21 16:16 THROAT Review of Systems Review of Systems: Constitutional : No Weight loss, No Fever, No Chills ENT/Mouth : No sore throat, pos Rhinorrhea Eyes: No Swelling, No Redness Cardiovascular : No Chest Pain, No SOB, NoEdema Respiratory : No Cough, No Sputum, No Wheezing Gastrointestinal : Positive Nausea, Positive Vomiting, positive Diarrhea, no abdominal Pain, No Hematochezia, No Melena Genitourinary : No Dysuria, No Urinary Frequency, No Hematuria, No Urgency Musculoskeletal : No joint pain, No Myalgias, No Joint Swelling Skin : No Skin Lesions, No rash Neuro : pos Weakness, No Numbness, No Dizziness, No Headache Psych : pos Anxiety/Panic, No Depression Heme/Lymph: No Bruising, No Lymphadenopathy Endocrine : No Polyuria, No Polydipsia All other systems reviewed and are negative. [facility] Past Medical History Medical History Erectile dysfunction Generalized anxiety disorder History of opioid abuse Opioid use disorder Seasonal allergies Surgical History History of amblyopia Family History Family History Father HTN (hypertension) Stroke Mother Hypothyroidism Anxiety Stroke Diabetes mellitus HTN (hypertension) Sister HTN (hypertension) Paternal Grandfather No problems noted. Paternal Grandmother Alzheimer's disease Brother No problems noted. Sister No problems noted. Daughter No problems noted. Daughter No problems noted. Social History Social History Household Members: Significant Other and Children Alcohol intake: never Patient Tobacco Use Status: Former Tobacco user e-Cigarette/Vaping Use: Currently Using Substance Use Type: Marijuana and Prescription Drugs Advance Directives: No Physical Exam ED Vital Signs: Vital Signs - 24 hr 02/04/22 06:14 02/04/22 09:03 02/04/22 10:26 Temperature 97.4 F 98 F 97.9 F Pulse Rate 88 72 77 Respiratory Rate 14 18 16 Blood Pressure 116/88 124/73 131/65 Pulse Oximetry 99 99 100 Oxygen Delivery Method Room Air Room Air Room Air BMI result Body Mass Index 27.4 Appearance: Alert. Oriented X3. No acute distress. Anxious Eyes: Pupils equal, round and reactive to light. ENT: Pharynx normal. Runny nose Neck: Normal inspection. Neck supple. CVS: Normal heart rate and rhythm. Pulses normal. Respiratory: No respiratory distress. Breath sounds normal. Abdomen: Soft and non-tender. Skin: Skin warm and dry. Normal skin color. Normal skin turgor. Extremities: No lower extremity edema. No calf ttp Neuro: Oriented X 3. No motor deficit. No sensory deficit. Course Course Course Narrative: Ebenezer WAYNE from addiction Medicine recommends giving additional 12/3 suboxone much better has appointment to [facility] Medical Decision Making MDM Narrative Medical decision making narrative: 41 yo male in precipitated withdrawal - will hydrate patient give zofran - attempt to reverse with more suboxone, he is interested in going back on suboxone - he already took a dose of 4/1 at 2am today. Notified Ebenezer WAYNE from addiction medicine. Lab Data Result diagrams: 02/04/22 08:54 02/04/22 08:54 Labs: Lab Results 02/04/22 02/04/22 02/04/22 Range/Units 08:54 08:54 08:54 WBC 5.8 (4.8-10.8) X10*3/uL RBC 5.62 (4.60-5.80) X10*6/uL Hgb 14.9 (14.0-18.0) g/dl Hct 45.1 (42.0-52.0) % MCV 80.2 (80.0-98.0) fL MCH 26.5 L (27.0-33.0) pg MCHC 33.0 (31.0-36.0) g/dl RDW 12.3 (11.0-16.0) % Plt Count 205 (160-400) X10*3/uL MPV 10.6 (9.4-12.4) fL Immature Gran % (Auto) 0.3 (0.0-0.4) % Neut % (Auto) 76.9 H (45-73) % Lymph % (Auto) 14.0 L (20-40) % [place] % (Auto) 5.9 (2-11) % Eos % (Auto) 2.6 (0-4) % Baso % (Auto) 0.3 (0-2) % Lymph # (Auto) 0.8 L (1.2-4.9) X10*3/uL [place] # (Auto) 0.3 (0.1-1.2) X10*3/uL Eos # (Auto) 0.2 (0.0-0.4) X10*3/uL Baso # (Auto) 0.0 (0.0-0.2) X10*3/uL Abs Immat Gran (auto) 0.02 (0.00-0.03) X10*3/uL Absolute Neuts (auto) 4.4 (2.0-8.3) x10*3/uL Absolute Nucleated RBC 0.000 (0.0-0.012) X10*3/uL Nucleated RBC % (auto) 0.0 (0.0-0.2) /100WBC Sodium 136 (135-145) mmol/L Potassium 4.7 (3.3-5.1) mmol/L Chloride 101 (96-108) mmol/L Carbon Dioxide 26 (22-29) mmol/L Anion Gap 14 (12-20) BUN 18 H (9-16) mg/dL Creatinine 0.83 (0.5-1.4) mg/dL Estim Creat Clear Calc 114.5 Estimated GFR > 60 Random Glucose 136 H D (60-115) mg/dL Calcium 9.9 (8.4-10.2) mg/dL Total Bilirubin 0.6 (0.0-1.0) mg/dL Direct Bilirubin 0.2 (0.0-0.5) mg/dL AST 22 (5-37) U/L ALT 26 (0-40) U/L Alkaline Phosphatase 105 (39-117) U/L Total Protein 7.5 (6.5-8.0) g/dL Albumin 4.8 (3.5-5.0) g/dL Urine Color YELLOW Urine Appearance CLEAR Urine pH 8.5 H (5.0-8.0) Ur Specific [place] 1.020 (1.005-1.025) Urine Protein TRACE (NEG-TRACE) MG/DL Urine Glucose (UA) NEG (NEG) MG/DL Urine Ketones NEG (NEG) MG/DL Urine Blood NEG (NEG) Urine Nitrite NEG (NEG) Ur Leukocyte Esterase NEG (NEG) Urine RBC 0 (0) /HPF Urine WBC 0-2 (0-4) /HPF Ur Squamous Epith Cells NONE /LPF Urine Bacteria NONE /LPF Urine Mucus TRACE /LPF Ur Oval Fat Bodies NOTED (NONE) Urine Opiates Screen (Not Detect) Urine Fentanyl Screen (Not Detect) Ur Barbiturates Screen (Not Detect) Ur Phencyclidine Scrn (Not Detect) Ur Amphetamines Screen (Not Detect) U Benzodiazepines Scrn (Not Detect) Urine Cocaine Screen (Not Detect) U Marijuana (THC) Screen (Not Detect) 02/04/22 Range/Units 08:54 WBC (4.8-10.8) X10*3/uL RBC (4.60-5.80) X10*6/uL Hgb (14.0-18.0) g/dl Hct (42.0-52.0) % MCV (80.0-98.0) fL MCH (27.0-33.0) pg MCHC (31.0-36.0) g/dl RDW (11.0-16.0) % Plt Count (160-400) X10*3/uL MPV (9.4-12.4) fL Immature Gran % (Auto) (0.0-0.4) % Neut % (Auto) (45-73) % Lymph % (Auto) (20-40) % [place] % (Auto) (2-11) % Eos % (Auto) (0-4) % Baso % (Auto) (0-2) % Lymph # (Auto) (1.2-4.9) X10*3/uL [place] # (Auto) (0.1-1.2) X10*3/uL Eos # (Auto) (0.0-0.4) X10*3/uL Baso # (Auto) (0.0-0.2) X10*3/uL Abs Immat Gran (auto) (0.00-0.03) X10*3/uL Absolute Neuts (auto) (2.0-8.3) x10*3/uL Absolute Nucleated RBC (0.0-0.012) X10*3/uL Nucleated RBC % (auto) (0.0-0.2) /100WBC Sodium (135-145) mmol/L Potassium (3.3-5.1) mmol/L Chloride (96-108) mmol/L Carbon Dioxide (22-29) mmol/L Anion Gap (12-20) BUN (9-16) mg/dL Creatinine (0.5-1.4) mg/dL Estim Creat Clear Calc Estimated GFR Random Glucose (60-115) mg/dL Calcium (8.4-10.2) mg/dL Total Bilirubin (0.0-1.0) mg/dL Direct Bilirubin (0.0-0.5) mg/dL AST (5-37) U/L ALT (0-40) U/L Alkaline Phosphatase (39-117) U/L Total Protein (6.5-8.0) g/dL Albumin (3.5-5.0) g/dL Urine Color Urine Appearance Urine pH (5.0-8.0) Ur Specific [place] (1.005-1.025) Urine Protein (NEG-TRACE) MG/DL Urine Glucose (UA) (NEG) MG/DL Urine Ketones (NEG) MG/DL Urine Blood (NEG) Urine Nitrite (NEG) Ur Leukocyte Esterase (NEG) Urine RBC (0) /HPF Urine WBC (0-4) /HPF Ur Squamous Epith Cells /LPF Urine Bacteria /LPF Urine Mucus /LPF Ur Oval Fat Bodies (NONE) Urine Opiates Screen POSITIVE H (Not Detect) Urine Fentanyl Screen POSITIVE H (Not Detect) Ur Barbiturates Screen Not Detected (Not Detect) Ur Phencyclidine Scrn Not Detected (Not Detect) Ur Amphetamines Screen Not Detected (Not Detect) U Benzodiazepines Scrn Not Detected (Not Detect) Urine Cocaine Screen Not Detected (Not Detect) U Marijuana (THC) Screen Not Detected (Not Detect) Discharge Plan Discharge Clinical Impression: Opioid use disorder, Opiate withdrawal Patient Disposition: Home, Self-Care Instructions: Opioid Withdrawal (ED), Opioid Use Disorder (ED) Additional Instructions: return to ED for any worsening symptoms or concerns follow [facility] at [facility] on Wednesday Prescriptions: New buprenorphine-naloxone [Suboxone] 8-2 mg film 1 film buccal BID Qty: 5 0RF No Action buprenorphine-naloxone [Suboxone] 8-2 mg film 2 film sublingual DAILY 7 Days Qty: 14 0RF Rx Instructions: place 1 strip/tab under (each) side of tongue ibuprofen 800 mg tablet 800 mg PO Q8H PRN (Reason: pain) Qty: 20 0RF omeprazole 40 mg capsule,delayed release(DR/EC) 40 mg PO DAILY Qty: 20 0RF trazodone 50 mg tablet 50 mg PO BEDTIME buspirone 5 mg tablet 5 mg PO TID Qty: 90 0RF albuterol sulfate 90 mcg/actuation HFA aerosol inhaler 1 inh inhalation QID PRN (Reason: shortness of breath or wheezing) 30 Days Qty: 6.7 1RF bupropion HCl 150 mg tablet extended release 24 hr 150 mg PO QAM mirtazapine 15 mg tablet 15 mg PO BEDTIME clonidine HCl 0.1 mg tablet 0.1 mg PO TID 7 Days Qty: 21 0RF hydroxyzine pamoate [Vistaril] 25 mg capsule 25 mg PO TID PRN (Reason: itching) 7 Days Qty: 21 0RF clonidine HCl 0.1 mg tablet 0.1 mg PO TID PRN (Reason: anxiety) 3 Days Qty: 9 0RF hydroxyzine pamoate [Vistaril] 25 mg capsule 25 mg PO TID PRN (Reason: itching) 7 Days Qty: 21 0RF buprenorphine-naloxone [Suboxone] 8-2 mg film 3 film sublingual DAILY 14 Days Qty: 42 0RF Rx Instructions: place 1 strip/tab under (each) side of tongue Stand Alone Forms: Work/School Release
[2022-02-04] MEDS: ondansetron HCL 4 MG/2 ML VIAL IVPUSH (08:59)
[2022-02-04] MEDS: 0.9 % Sodium Chloride 1,000 ML 999 ML IV (08:59)
[2022-02-04] MEDS: Buprenorphine/Naloxone 4/1 mg FILM 1 FILM SUBLINGUAL (08:59)
[2022-02-04 09:02] LABS: MANUAL DIFF FLAG NO
[2022-02-04 09:03] VITALS: BP 124/73; PULSE 72; RESP 18; TEMP 36.6; O2SAT 99
[2022-02-04 09:04] LABS: Basophils Percent Auto 0.3 % (0-2); Eosinophils Absolute Auto 0.2 X10*3/uL (0.0-0.4); Eosinophils Percent Auto 2.6 % (0-4); Hematocrit 45.1 % (42.0-52.0); Hemoglobin 14.9 g/dl (14.0-18.0); Imm Gran Abs Auto 0.02 X10*3/uL (0.00-0.03); Imm Gran Pct Auto 0.3 % (0.0-0.4); Lymphocytes Absolute Auto 0.8 X10*3/uL (1.2-4.9); Mean Corpuscular Hemoglobin 26.5 pg (27.0-33.0); Mean Corpuscular Volume 80.2 fL (80.0-98.0); Mean Platelet Volume 10.6 fL (9.4-12.4); Monocytes Absolute Auto 0.3 X10*3/uL (0.1-1.2); Monocytes Percent Auto 5.9 % (2-11); Neutrophils Absolute Auto 4.4 x10*3/uL (2.0-8.3); Neutrophils Percent Auto 76.9 % (45-73); Platelet Count 205 X10*3/uL (160-400); Red Blood Count 5.62 X10*6/uL (4.60-5.80); Red Cell Distribution Width 12.3 % (11.0-16.0); White Blood Count 5.8 X10*3/uL (4.8-10.8)
[2022-02-04 09:14] LABS: Appearance Urine CLEAR; Color Urine YELLOW; Glucose Urine UA NEG (NEG); Leukocyte Esterase Urine NEG (NEG); Nitrite Urine NEG (NEG); PH 8.5 (5.0-8.0); Urine Blood NEG (NEG); Urine Ketones NEG (NEG); Urine Protein TRACE MG/DL (NEG-TRACE)
[2022-02-04 09:21] LABS: Alanine Aminotransferase 26 U/L (0-40); Albumin Level 4.8 g/dL (3.5-5.0); Alkaline Phosphatase 105 U/L (39-117); Anion Gap 14 (12-20); Aspartate Amino Transferase 22 U/L (5-37); Bilirubin Direct 0.2 mg/dL (0.0-0.5); Bilirubin Total 0.6 mg/dL (0.0-1.0); Blood Urea Nitrogen 18 mg/dL (9-16); Calcium 9.9 mg/dL (8.4-10.2); Carbon Dioxide 26 mmol/L (22-29); Chloride 101 mmol/L (96-108); Creatinine Clr Calc Pharmacy 114.5; Estimated Glomerular Filt Rate > 60; Glucose Random 136 mg/dL (60-115); Potassium 4.7 mmol/L (3.3-5.1); Sodium 136 mmol/L (135-145); Total Protein 7.5 g/dL (6.5-8.0)
[2022-02-04 09:22] LABS: Mucus Urine TRACE /LPF
[2022-02-04 09:23] LABS: Oval Fat Bodies Urine NOTED
[2022-02-04 09:24] LABS: RBC Urine 0 /HPF (0); WBC Urine 0-2 /HPF (0-4)
[2022-02-04 09:30] LABS: Amphetamine Screen Urine Not Detected (Not Detect); Barbiturates, Urine Not Detected (Not Detect); Benzodiazepines Screen Urine Not Detected (Not Detect); Cannabinoid Screen Urine Not Detected (Not Detect); Cocaine Screen Urine Not Detected (Not Detect); Fentanyl, urine POSITIVE (Not Detect); Opiate Screen Urine POSITIVE (Not Detect); Phencyclidine Screen Urine Not Detected (Not Detect)
[2022-02-04] MEDS: Buprenorphine/Naloxone 12/3 mg FILM 1 FILM SUBLINGUAL (09:45)
--- NOTE | 2022-02-04 09:52 | PC.NURSE ---
pt stated he is starting to feel better. Ambulated to the bathroom independently. Resting comfortably
[2022-02-04 10:26] VITALS: BP 131/65; PULSE 77; RESP 16; TEMP 36.6; O2SAT 100
== END 2022-02-04 11:35 | disposition home or self-care (01) ==
PROVIDERS: Emergency Provider Emergency Medicine; PCP Internal Medicine
DX: F11.23 Opioid dependence with withdrawal (principal); Z79.899 Other long term (current) drug therapy; Z87.891 Personal history of nicotine dependence; Z71.51 Drug abuse counseling and surveillance of drug abuser
CPT/HCPCS: 36415; 80048; 80076; 80307; 81001; 85025; 96361; 96374; 99284; J2405

== ENCOUNTER 2022-03-20 16:55 | Outpatient (REF) | payer OTHER, SELFPAY ==
[2022-03-20 17:40] LABS: Fentanyl, urine POSITIVE (Not Detect)
== END 2022-03-20 16:56 | disposition home or self-care (01) ==
LOC: HO.LNP 16:55
PROVIDERS: Visit Provider Internal Medicine
DX: F11.99 Opioid use, unspecified with unspecified opioid-induced disorder (principal)
CPT/HCPCS: 80307

== ENCOUNTER 2022-03-27 16:32 | Outpatient (REF) | payer OTHER, SELFPAY ==
[2022-03-27 17:04] LABS: Fentanyl, urine POSITIVE (Not Detect)
== END 2022-03-27 16:33 | disposition home or self-care (01) ==
LOC: HO.LNP 16:32
PROVIDERS: Visit Provider Internal Medicine
DX: F11.99 Opioid use, unspecified with unspecified opioid-induced disorder (principal)
CPT/HCPCS: 80307

== ENCOUNTER 2022-04-03 17:36 | Outpatient (REF) | payer OTHER, SELFPAY ==
[2022-04-03 18:10] LABS: Fentanyl, urine POSITIVE (Not Detect)
== END 2022-04-03 17:37 | disposition home or self-care (01) ==
LOC: HO.LNP 17:36
PROVIDERS: Visit Provider Internal Medicine
DX: F11.99 Opioid use, unspecified with unspecified opioid-induced disorder (principal)
CPT/HCPCS: 80307

== ENCOUNTER 2022-05-13 17:44 | Outpatient (REF) | payer OTHER, SELFPAY ==
[2022-05-13 18:26] LABS: Fentanyl, urine POSITIVE (Not Detect)
== END 2022-05-13 17:45 | disposition home or self-care (01) ==
LOC: HO.LNP 17:44
PROVIDERS: Visit Provider Internal Medicine
DX: F11.99 Opioid use, unspecified with unspecified opioid-induced disorder (principal)
CPT/HCPCS: 80307

== ENCOUNTER → 2022-06-15 16:13 | Outpatient (BNVA) | payer OTHER, SELFPAY | PROVIDERS: Visit Provider Nurse Practitioner Psychiatric/Mental Health | DX: F11.20 Opioid dependence, uncomplicated (principal); F41.1 Generalized anxiety disorder; Z51.81 Encounter for therapeutic drug level monitoring; Z79.899 Other long term (current) drug therapy | CPT/HCPCS: 80305 ==

== ENCOUNTER → 2022-07-01 15:54 | Outpatient (BNVA) | payer OTHER, SELFPAY | PROVIDERS: PCP Nurse Practitioner Family; Visit Provider Nurse Practitioner Psychiatric/Mental Health | DX: Z51.81 Encounter for therapeutic drug level monitoring (principal); F11.20 Opioid dependence, uncomplicated | CPT/HCPCS: 80305 ==

== ENCOUNTER → 2022-09-18 15:17 | Outpatient (BNVA) | payer OTHER, SELFPAY | PROVIDERS: PCP Nurse Practitioner Family; Visit Provider Nurse Practitioner Psychiatric/Mental Health | DX: Z51.81 Encounter for therapeutic drug level monitoring (principal); F11.20 Opioid dependence, uncomplicated | CPT/HCPCS: 80305 ==

== ENCOUNTER → 2022-09-25 16:14 | Outpatient (BNVA) | payer OTHER, SELFPAY | PROVIDERS: PCP Nurse Practitioner Family; Visit Provider Nurse Practitioner Psychiatric/Mental Health | DX: Z51.81 Encounter for therapeutic drug level monitoring (principal) ==

== ENCOUNTER → 2022-10-02 16:20 | Outpatient (BNVA) | payer OTHER, SELFPAY | PROVIDERS: PCP Nurse Practitioner Family; Visit Provider Nurse Practitioner Psychiatric/Mental Health | DX: Z51.81 Encounter for therapeutic drug level monitoring (principal); F11.20 Opioid dependence, uncomplicated | CPT/HCPCS: 80305 ==

== ENCOUNTER 2022-10-14 16:16 | Emergency (ER) | payer OTHER, SELFPAY ==
[2022-10-14] VITALS (7 sets, daily range): BP systolic 117–150; BP diastolic 67–88; PULSE 14–144; RESP 17–40; TEMP 36.5–36.6; O2SAT 95–100; BMI 25.0
--- NOTE | ~2022-10-14 | XR_ITS ---
EXAMINATION: XR CHEST CLINICAL INFORMATION: Dyspnea, wheezing, rule out aspiration pneumonia. COMPARISON: 05/11/2017 chest radiographs. TECHNIQUE: Frontal view of the chest was obtained. FINDINGS: No significant abnormality is noted involving the heart, lungs, mediastinum, bony thorax or soft tissues. XR/XR chest 1V IMPRESSION: No acute cardiopulmonary process.
--- NOTE | 2022-10-14 16:32 | ECG_ITS ---
Test Reason : DIFFICULTY BREATHING Blood Pressure : / mmHG Vent. Rate : 141 BPM Atrial Rate : 141 BPM P-R Int : 200 ms QRS Dur : 086 ms QT Int : 274 ms P-R-T Axes : 095 087 062 degrees QTc Int : 419 ms Sinus tachycardia Possible Left atrial enlargement Borderline ECG When compared with ECG of 28-APR-2018 21:18, Vent. rate has increased BY 58 BPM Referred By: Jomar Reynolds Electronically Signed By:ROSARIO VALDIVIA
[2022-10-14] MEDS: Albuterol Sulfate (0.083%) 2.5 MG/3 ML VIAL.NEB 10 MG INHALE (16:49)
--- NOTE | 2022-10-14 16:54 | PC.NURSE ---
pt connected to ETCO2 during ED triage, ETCO2 was 56
[2022-10-14 16:58] LABS: MANUAL DIFF FLAG NO
[2022-10-14 16:59] LABS: Basophils Absolute Auto 0.1 X10*3/uL (0.0-0.2); Basophils Percent Auto 0.9 % (0-2); Eosinophils Absolute Auto 1.8 X10*3/uL (0.0-0.4); Eosinophils Percent Auto 14.8 % (0-4); Hematocrit 45.1 % (42.0-52.0); Hemoglobin 14.7 g/dl (14.0-18.0); Imm Gran Pct Auto 0.8 % (0.0-0.4); Lymphocytes Absolute Auto 2.7 X10*3/uL (1.2-4.9); Lymphocytes Percent Auto 22.1 % (20-40); Mean Corpuscular HGB Conc 32.6 g/dl (31.0-36.0); Mean Corpuscular Hemoglobin 26.5 pg (27.0-33.0); Mean Corpuscular Volume 81.4 fL (80.0-98.0); Mean Platelet Volume 10.5 fL (9.4-12.4); Monocytes Absolute Auto 0.8 X10*3/uL (0.1-1.2); Monocytes Percent Auto 6.7 % (2-11); Neutrophils Absolute Auto 6.7 x10*3/uL (2.0-8.3); Neutrophils Percent Auto 54.7 % (45-73); Platelet Count 282 X10*3/uL (160-400); Red Blood Count 5.54 X10*6/uL (4.60-5.80); White Blood Count 12.2 X10*3/uL (4.8-10.8)
--- NOTE | 2022-10-14 17:01 | PC.NURSE ---
pt comes in via EMS with acute asthma attack. pt sinus tach on monitor, elevated RR in the 30s-40. Resp admin albuterol treatment. IV inserted, labs drawn. EKG on hold per MD to keep the pt upright. Chest x ray done.
[2022-10-14 17:11] LABS: Prothrombin Time 11.5 SEC (10.0-13.1)
[2022-10-14 17:13] LABS: Partial Thromboplastin Time 25.2 SEC (26.0-36.4)
[2022-10-14 17:14] LABS: COVID-19 Test Negative (Negative); IDNOW Serial# 08D9AD1C
[2022-10-14 17:18] LABS: Lactic Acid 1.8 mmol/L (0.5-2.0)
[2022-10-14 17:19] LABS: IDNOW Serial# BCCEAD1C; Influenza A Negative (Negative); Influenza B2 Negative (Negative)
[2022-10-14 17:24] LABS: Alanine Aminotransferase 22 U/L (0-40); Albumin Level 4.7 g/dL (3.5-5.0); Alkaline Phosphatase 99 U/L (39-117); Anion Gap 16 (12-20); Aspartate Amino Transferase 21 U/L (5-37); Bilirubin Total 0.3 mg/dL (0.0-1.0); Blood Urea Nitrogen 21 mg/dL (9-16); Calcium 9.4 mg/dL (8.4-10.2); Carbon Dioxide 28 mmol/L (22-29); Chloride 104 mmol/L (96-108); Creatinine Clr Calc Pharmacy 107.1; Estimated Glomerular Filt Rate > 60; Ethanol < 10 mg/dL; Glucose Random 198 mg/dL (60-115); Lipase 21 U/L (8-78); Potassium 4.5 mmol/L (3.3-5.1); Sodium 143 mmol/L (135-145); Total Protein 7.2 g/dL (6.5-8.0)
[2022-10-14 17:28] LABS: B Type Natriuretic Peptide 20 pg/mL (<100)
[2022-10-14 17:31] LABS: Troponin-I High Sensitivity 30.2 ng/L (<3.5-35.0)
--- NOTE | 2022-10-14 18:53 | PC.NURSE ---
albuterol treatment finished, removed. pt on RA
--- NOTE | 2022-10-14 19:10 | ED_ITS ---
HPI - SOB/Dyspnea General Chief Complaint: Dyspnea Stated Complaint: combative Time Seen by Provider: 10/14/22 16:30 Source: patient and EMS Mode of arrival: EMS Limitations: no limitations History of Present Illness HPI Narrative: 42-year-old male who presents emergency department for evaluation of narcotic overdose and difficulty breathing. I did obtain information from the paramedics on arrival. They state that they were called for an unresponsive male who was in an alley. When they got to the alley the patient was awake, altered but breathing rapidly. His O2 saturation was 66% on room air with a respiratory rate of 40. The patient had significant wheezing on his lung exam and was placed on a non-rebreather mask and transported to the emergency department. On presentation the patient was in severe respiratory distress, he was also extremely agitated and kept repeating that he was afraid he was going to . After the patient improved he did tell me that he has asthma and he has been having difficulty with his asthma over the past 2-3 days. He states he has been using his inhalers with only minimal relief of his shortness of breath. He denied fever, chills, cough, nausea, vomiting. He states that he was having chest pain with breathing. The patient told me that he sniffed 10 bags of heroin. He states that he is in a Suboxone clinic that is run by [facility]. He states that he just slipped up in used again today. Related Data Previous Rx's Medication Instructions Recorded ibuprofen 800 mg tablet 800 mg PO Q8H PRN pain #20 tabs 07/18/20 omeprazole 40 mg capsule,delayed 40 mg PO DAILY #20 caps 06/23/21 release clonidine HCl 0.1 mg tablet 0.1 mg PO TID PRN anxiety 3 days 04/03/22 #9 tabs albuterol sulfate 90 mcg/actuation 2 inh inhalation QID PRN shortness 07/15/22 aerosol inhaler of breath or wheezing 30 days #6.7 grams naloxone 4 mg/actuation nasal 4 mg intranasal Q2M PRN opioid 09/18/22 spray (Narcan) overdose #2 ea sertraline 25 mg tablet 25 mg PO DAILY #7 tabs 09/25/22 buprenorphine 100 mg/0.5 mL 100 mg (0.5 mL) subcut .monthly 09/28/22 solution,exten.rel.subcutaneous #0.5 mL syringe (Sublocade) buprenorphine 300 mg/1.5 mL 300 mg (1.5 mL) subcut .monthly 09/28/22 solution,exten.rel.subcutaneous #1.5 mL syringe (Sublocade) sertraline 50 mg tablet 50 mg PO DAILY #30 tabs 10/02/22 buprenorphine 8 mg-naloxone 2 mg 1 film sublingual BID #14 ea 10/06/22 sublingual film (Suboxone) prednisone 20 mg tablet 60 mg PO DAILY 5 days #15 tabs 10/14/22 Allergies Allergy/AdvReac Type Severity Reaction Status Date / Time shellfish derived Allergy Difficulty Verified 10/14/22 16:56 Breathing tree fruit Allergy Intermediate hives Uncoded 10/02/22 16:22 FRUIT Allergy Mild ITCHY Uncoded 10/02/22 16:22 THROAT Review of Systems Review of Systems: Yes all other systems are reviewed and are negative [facility] Past Medical History [facility] Narrative: Past medical history: Reviewed below, asthma. Social history: He does admit to using intranasal heroin, 10 bags today. He is in a Suboxone program as well. Medical History Erectile dysfunction Generalized anxiety disorder History of opioid abuse Opioid use disorder Seasonal allergies Surgical History History of amblyopia Family History Family History Father HTN (hypertension) Stroke Mother Hypothyroidism Anxiety Stroke Diabetes mellitus HTN (hypertension) Sister HTN (hypertension) Paternal Grandfather No problems noted. Paternal Grandmother Alzheimer's disease Brother No problems noted. Sister No problems noted. Daughter No problems noted. Daughter No problems noted. Social History Social History Household Members: Significant Other and Children Alcohol intake: never Patient Tobacco Use Status: Former Tobacco user e-Cigarette/Vaping Use: Currently Using Substance Use Type: Marijuana and Prescription Drugs Advance Directives: No Advance Directives Information Provided: No Physical Exam Vital Signs: Vital Signs: Last Vital Signs Temp 97.8 F 10/14/22 18:57 Pulse 134 H 10/14/22 18:57 Resp 20 03/29/23 18:57 BP 128/79 10/14/22 18:57 Pulse Ox 95 10/14/22 18:57 O2 Del Method Room Air 10/14/22 18:57 O2 Flow Rate 4 10/14/22 18:00 Oxygen Flow Rate 4 10/14/22 16:56 BMI result Body Mass Index 25.0 Const: Other: I evaluated the patient on the water restoration technician stretcher. The patient was restrained since he had become agitated in the ambulance. He was tachypneic, diaphoretic, appeared very agitated and was yelling that he did not want to . Orientation/consciousness: oriented to person HEENT: Head: Yes normal to inspection, Yes normocephalic and Yes atraumatic Ears: external ears normal General nose exam: Normal external nose present Face and sinus: Yes normal facial exam Mouth: Normal oral and palatal mucosa present Throat: Yes posterior oropharynx normal Eyes: General: appearance normal, both eyes and all related structures Pupils: Equal, round and reactive pupils present Neck: Neck: Yes normal visual inspection, Yes no lymphadenopathy, Yes trachea midline and Yes supple Chest: Chest palpation & inspection: normal inspection of the chest and normal palpation of entire chest wall Resp: Other: Patient was in severe respiratory distress, diaphoretic, tachypneic, diminished breath sounds at the bases with diffuse wheezing, diffuse rhonchi Cardio: Rate: regular rate Rhythm: regular rhythm Heart sounds: S1 normal heart sound present, S2 normal heart sound present and no murmurs GI: Inspection: Yes normal to inspection Palpation (GI): Soft to palpation, nontender and no guarding Auscultation: normal bowel sounds : General: Yes no CVA tenderness Back/Spine/Pelvis: Back: no CVA tenderness Skin: General skin exam: no rashes or lesions noted Neuro: General: oriented to person Cranial nerves: Yes CN's II-XII intact bilaterally and Yes Equal, round and reactive pupils present Cognition (Neuro): normal cognition Motor exam (neuro): 5/5 motor strength present throughout Extrem: General: Yes normal to inspection Psych: Other: The patient was extremely agitated, fearful, anxious, was able answer questions after improvement of his respiratory distress Medications Administered Discontinued Medications Generic Name Dose Route Start Last Admin Trade Name Freq PRN Reason Stop Dose Admin Albuterol Sulfate 10 mg 10/14/22 16:31 10/14/22 16:49 Albuterol Sulfate (0.083%) 2.5 Mg/3 Ml Vial.Neb INHALE 10/14/22 16:32 10 mg ONCE ONE Administration Albuterol Sulfate 2.5 mg/ 0 mg 10/14/22 16:40 10/14/22 16:50 Ipratropium [place] 0.5 mg INHALE 10/14/22 16:41 2.5 each ONCE ONE Administration Medical Decision Making Medical Decision Making [facility] Narrative: 42-year-old male with a history of asthma, opiate use disorder, on Suboxone who presents emergency department for evaluation of altered mental status, agitation in severe respiratory distress after using and bags of inter nasal heroin. The patient did not receive any Narcan by the paramedics. On presentation he was agitated, restrained to the water restoration technician stretcher, appear to be diaphoretic and in severe respiratory distress. Patient was transferred immediately to an ED stretcher, he was ordered to get albuterol 10 mg nebulizer followed by a DuoNeb nebulizer. Was also given Solu-Medrol 125 mg IV. I ordered a laboratory evaluation to include CBC, CMP, ethanol level, urine drug screen, chest x-ray, 12 EKG, COVID-19, influenza. 192: My interpretation patient's laboratory evaluation is as follows: WBC elevated 12,200. BUN elevated 21. Glucose elevated 198. COVID-19 and in fluenza were negative. 12 EKG was consistent with sinus tachycardia. My interpretation patient's one-view chest x-ray was that there was no acute infiltrates noted. This was consistent with the radiology interpretation. The patient states he will leave better after the above treatment. Patient's presentation is consistent with an asthma exacerbation triggered by his drug overdose. The patient is in a Suboxone clinic and he does not want a SUDE exam at this time and he states that he will follow-up with his Suboxone clinic. He states he does have inhalers at home. He was given prescription for prednisone 60 mg once a day for 5 days. He was also given intranasal Narcan rescue pack to take home. Differential Diagnosis Differential diagnosis includes was not limited to asthma exacerbation, aspiration pneumonia, pulmonary edema secondary to opiate use, opiate overdose Lab Data [facility] Lab Attestation statement: I reviewed the patient's lab results. Please see MDM 10/14/22 16:47 10/14/22 16:51 Labs: Lab Results 10/14/22 10/14/22 10/14/22 Range/Units 16:47 16:47 16:47 WBC 12.2 H (4.8-10.8) X10*3/uL RBC 5.54 (4.60-5.80) X10*6/uL Hgb 14.7 (14.0-18.0) g/dl Hct 45.1 (42.0-52.0) % MCV 81.4 (80.0-98.0) fL MCH 26.5 L (27.0-33.0) pg MCHC 32.6 (31.0-36.0) g/dl RDW 13.0 (11.0-16.0) % Plt Count 282 D (160-400) X10*3/uL MPV 10.5 (9.4-12.4) fL Immature Gran % (Auto) 0.8 H (0.0-0.4) % Neut % (Auto) 54.7 (45-73) % Lymph % (Auto) 22.1 (20-40) % [place] % (Auto) 6.7 (2-11) % Eos % (Auto) 14.8 H (0-4) % Baso % (Auto) 0.9 (0-2) % Lymph # (Auto) 2.7 (1.2-4.9) X10*3/uL [place] # (Auto) 0.8 (0.1-1.2) X10*3/uL Eos # (Auto) 1.8 H (0.0-0.4) X10*3/uL Baso # (Auto) 0.1 (0.0-0.2) X10*3/uL Abs Immat Gran (auto) 0.10 H (0.00-0.03) X10*3/uL Absolute Neuts (auto) 6.7 (2.0-8.3) x10*3/uL Absolute Nucleated RBC 0.000 (0.0-0.012) X10*3/uL Nucleated RBC % (auto) 0.0 (0.0-0.2) /100WBC PT 11.5 (10.0-13.1) SEC INR 1.0 (0.9-1.1) APTT 25.2 L (26.0-36.4) SEC Sodium (135-145) mmol/L Potassium (3.3-5.1) mmol/L Chloride (96-108) mmol/L Carbon Dioxide (22-29) mmol/L Anion Gap (12-20) BUN (9-16) mg/dL Creatinine (0.5-1.4) mg/dL Estim Creat Clear Calc Estimated GFR Random Glucose (60-115) mg/dL Lactic Acid 1.8 (0.5-2.0) mmol/L Calcium (8.4-10.2) mg/dL Total Bilirubin (0.0-1.0) mg/dL AST (5-37) U/L ALT (0-40) U/L Alkaline Phosphatase (39-117) U/L Troponin I High Sens (<3.5-35.0) ng/L B-Natriuretic Peptide (<100) pg/mL Total Protein (6.5-8.0) g/dL Albumin (3.5-5.0) g/dL Lipase (8-78) U/L Ethyl Alcohol mg/dL COVID-19 ([facility]) (Negative) COVID-19 Clin Com Influenza Type A ([facility]) (Negative) Influenza Type B ([facility]) (Negative) Influenza A & B Note 10/14/22 10/14/22 10/14/22 Range/Units 16:47 16:47 16:47 WBC (4.8-10.8) X10*3/uL RBC (4.60-5.80) X10*6/uL Hgb (14.0-18.0) g/dl Hct (42.0-52.0) % MCV (80.0-98.0) fL MCH (27.0-33.0) pg MCHC (31.0-36.0) g/dl RDW (11.0-16.0) % Plt Count (160-400) X10*3/uL MPV (9.4-12.4) fL Immature Gran % (Auto) (0.0-0.4) % Neut % (Auto) (45-73) % Lymph % (Auto) (20-40) % [place] % (Auto) (2-11) % Eos % (Auto) (0-4) % Baso % (Auto) (0-2) % Lymph # (Auto) (1.2-4.9) X10*3/uL [place] # (Auto) (0.1-1.2) X10*3/uL Eos # (Auto) (0.0-0.4) X10*3/uL Baso # (Auto) (0.0-0.2) X10*3/uL Abs Immat Gran (auto) (0.00-0.03) X10*3/uL Absolute Neuts (auto) (2.0-8.3) x10*3/uL Absolute Nucleated RBC (0.0-0.012) X10*3/uL Nucleated RBC % (auto) (0.0-0.2) /100WBC PT (10.0-13.1) SEC INR (0.9-1.1) APTT (26.0-36.4) SEC Sodium (135-145) mmol/L Potassium (3.3-5.1) mmol/L Chloride (96-108) mmol/L Carbon Dioxide (22-29) mmol/L Anion Gap (12-20) BUN (9-16) mg/dL Creatinine (0.5-1.4) mg/dL Estim Creat Clear Calc Estimated GFR Random Glucose (60-115) mg/dL Lactic Acid (0.5-2.0) mmol/L Calcium (8.4-10.2) mg/dL Total Bilirubin (0.0-1.0) mg/dL AST (5-37) U/L ALT (0-40) U/L Alkaline Phosphatase (39-117) U/L Troponin I High Sens 30.2 (<3.5-35.0) ng/L B-Natriuretic Peptide (<100) pg/mL Total Protein (6.5-8.0) g/dL Albumin (3.5-5.0) g/dL Lipase (8-78) U/L Ethyl Alcohol mg/dL COVID-19 ([facility]) Negative (Negative) COVID-19 Clin Com See Note Influenza Type A ([place]) Negative (Negative) Influenza Type B ([place]) Negative (Negative) Influenza A & B Note See Note 10/14/22 10/14/22 Range/Units 16:51 16:51 WBC (4.8-10.8) X10*3/uL RBC (4.60-5.80) X10*6/uL Hgb (14.0-18.0) g/dl Hct (42.0-52.0) % MCV (80.0-98.0) fL MCH (27.0-33.0) pg MCHC (31.0-36.0) g/dl RDW (11.0-16.0) % Plt Count (160-400) X10*3/uL MPV (9.4-12.4) fL Immature Gran % (Auto) (0.0-0.4) % Neut % (Auto) (45-73) % Lymph % (Auto) (20-40) % [place] % (Auto) (2-11) % Eos % (Auto) (0-4) % Baso % (Auto) (0-2) % Lymph # (Auto) (1.2-4.9) X10*3/uL [place] # (Auto) (0.1-1.2) X10*3/uL Eos # (Auto) (0.0-0.4) X10*3/uL Baso # (Auto) (0.0-0.2) X10*3/uL Abs Immat Gran (auto) (0.00-0.03) X10*3/uL Absolute Neuts (auto) (2.0-8.3) x10*3/uL Absolute Nucleated RBC (0.0-0.012) X10*3/uL Nucleated RBC % (auto) (0.0-0.2) /100WBC PT (10.0-13.1) SEC INR (0.9-1.1) APTT (26.0-36.4) SEC Sodium 143 (135-145) mmol/L Potassium 4.5 (3.3-5.1) mmol/L Chloride 104 (96-108) mmol/L Carbon Dioxide 28 (22-29) mmol/L Anion Gap 16 (12-20) BUN 21 H (9-16) mg/dL Creatinine 0.84 (0.5-1.4) mg/dL Estim Creat Clear Calc 107.1 Estimated GFR > 60 Random Glucose 198 H (60-115) mg/dL Lactic Acid (0.5-2.0) mmol/L Calcium 9.4 (8.4-10.2) mg/dL Total Bilirubin 0.3 (0.0-1.0) mg/dL AST 21 (5-37) U/L ALT 22 (0-40) U/L Alkaline Phosphatase 99 (39-117) U/L Troponin I High Sens (<3.5-35.0) ng/L B-Natriuretic Peptide 20 (<100) pg/mL Total Protein 7.2 (6.5-8.0) g/dL Albumin 4.7 (3.5-5.0) g/dL Lipase 21 (8-78) U/L Ethyl Alcohol < 10 mg/dL COVID-19 ([facility]) (Negative) COVID-19 Clin Com Influenza Type A ([facility]) (Negative) Influenza Type B ([facility]) (Negative) Influenza A & B Note Independent Interpretation I performed an independent interpretation of an: EKG and Plain X-Ray Interpretation: My independent interpretation of the patient's 12 EKG is as follows: EKG done at 1723: Sinus tachycardia with a rate of 140, prolonged ME interval 200 milliseconds, normal QRS and QTC interval, no ST segment elevation, no ST segment depression, no PACs, no PVCs. My independent interpretation patient's one-view chest x-ray is no acute disease Radiology Impression Discussion of test interpretation with radiology: I have reviewed the radiologist's reading. Radiologist Impression: XR chest 1V IMPRESSION: No acute cardiopulmonary process. Dictated By:Burt Rivera MDSigned By:<Electronically signed by Burt Rivera MD in [place]>10/14/22 1805 Independent Historian Clinical information obtained from an independent historian. History obtained from or confirmed by: EMS Critical Care Time Critical Care Time Critical Care Time: Yes Total Critical Care Time: 75 Attestation: Critical Care: The patient was critically ill with a high probability of immin ent or life threatening deterioration. I spent greater than 30 minutes of discontinuous time evaluating the patient,delivering critical care at the bedside, discussing and evaluating pertinent data with consultants. Critical care time does not include time spent performing separately billable procedures or teaching. Total time spent performing critical care was 75 minutes. Discharge Plan Discharge Clinical Impression: Opioid use disorder Asthma exacerbation Qualifiers: Asthma severity: severe Opiate overdose Qualifiers: Encounter type: initial encounter Injury intent: accidental or unintentional Qualified Code(s): T40.601A - Poisoning by unspecified narcotics, accidental (unintentional), initial encounter Patient Disposition: Home, Self-Care Instructions: Asthma (ED), Opioid Use Disorder (ED) Additional Instructions: Your blood work was unremarkable. Your 12 EKG was unremarkable except for very fast heart rate. Your chest x-ray revealed no evidence of pneumonia or infection. Take prednisone 20 mg pills, 3 pills once a day for 5 days. While you are taking prednisone, do not take any NSAIDs (Motrin, Advil, ibuprofen, Aleve, naproxen). Your are being discharged home with intranasal Narcan. If you are going to continue to use heroin, you should make sure that there is a sober person with you that is not using drugs and that this person can administer intranasal Narcan in the event that you stop breathing. Follow-up with your doctor in 2 days. Please return to the emergency department if your symptoms get worse or if you develop any symptoms that are concerning to you. Prescriptions: New prednisone 20 mg tablet 60 mg PO DAILY 5 Days Qty: 15 0RF No Action Sublocade 300 mg/1.5 mL solution, extended rel syringe 300 mg subcut .monthly Qty: 1.5 1RF Sublocade 100 mg/0.5 mL solution, extended rel syringe 100 mg subcut .monthly Qty: 0.5 5RF buprenorphine-naloxone [Suboxone] 8-2 mg film 1 film sublingual BID Qty: 14 0RF ibuprofen 800 mg tablet 800 mg PO Q8H PRN (Reason: pain) Qty: 20 0RF omeprazole 40 mg capsule,delayed release(DR/EC) 40 mg PO DAILY Qty: 20 0RF albuterol sulfate 90 mcg/actuation HFA aerosol inhaler 2 inh inhalation QID PRN (Reason: shortness of breath or wheezing) 30 Days Qty: 6.7 1RF naloxone [Narcan] 4 mg/actuation spray,non-aerosol 4 mg intranasal Q2M PRN (Reason: opioid overdose) Qty: 2 0RF Rx Instructions: spray 1 dose into ONE nostril; alternate nostrils w each dose until help arrives sertraline 25 mg tablet 25 mg PO DAILY Qty: 7 0RF clonidine HCl 0.1 mg tablet 0.1 mg PO TID PRN (Reason: anxiety) 3 Days Qty: 9 0RF sertraline 50 mg tablet 50 mg PO DAILY Qty: 30 0RF
[2022-10-14 20:05] LABS: Amphetamine Screen Urine Not Detected (Not Detect); Barbiturates, Urine Not Detected (Not Detect); Benzodiazepines Screen Urine Not Detected (Not Detect); Cannabinoid Screen Urine Not Detected (Not Detect); Cocaine Screen Urine Not Detected (Not Detect); Fentanyl, urine POSITIVE (Not Detect); Opiate Screen Urine POSITIVE (Not Detect); Phencyclidine Screen Urine Not Detected (Not Detect)
== END 2022-10-14 20:32 | disposition home or self-care (01) ==
PROVIDERS: Emergency Provider Emergency Medicine Emergency Medical Services; PCP Internal Medicine
DX: T40.1X1A Poisoning by heroin, accidental (unintentional), initial encounter (principal); Y92.9 Unspecified place or not applicable; F11.10 Opioid abuse, uncomplicated; R06.02 Shortness of breath; R00.0 Tachycardia, unspecified; J45.901 Unspecified asthma with (acute) exacerbation; Z20.822 Contact with and (suspected) exposure to COVID-19; Z20.828 Contact with and (suspected) exposure to other viral communicable diseases; Z87.891 Personal history of nicotine dependence; Z79.899 Other long term (current) drug therapy
CPT/HCPCS: 71045; 80053; 80307; 82077; 83605; 83690; 83880; 84484; 85025; 85610; 85730; 87040; 87502; 87635; 93005; 94640; 99284; 99285

== ENCOUNTER → 2022-10-22 15:37 | Outpatient (BNVA) | payer OTHER, SELFPAY | PROVIDERS: PCP Internal Medicine; Visit Provider Nurse Practitioner Psychiatric/Mental Health | DX: F11.20 Opioid dependence, uncomplicated (principal); Z51.81 Encounter for therapeutic drug level monitoring; Z79.899 Other long term (current) drug therapy | CPT/HCPCS: 80305 ==

== ENCOUNTER 2023-04-09 10:41 | Outpatient (AMB) | payer OTHER, SELFPAY ==
--- NOTE | 2023-04-09 12:59 | MHC.OFFWIV ---
Intake Vital Signs 04/09/23 13:00 Weight 148 lb BP 130/80 Blood Pressure Location Lt brachial Position Sitting Pulse 95 Pulse Source Pulse Oximeter Temp 98.3 F Temp Source Oral Pulse Oximetry (%) 93 Oxygen Delivery Method Room Air Intake Visit Reasons: EP Asthma Intake Note: Patient here for asthma flare up which he states have been on and off for about 3 weeks. He states he believes to have a resp virus as he is expericiecing congestion, wheezing and slight chest and back pain. Patient Tobacco Use Status: Former Tobacco user Allergies shellfish derived Allergy (Verified 10/22/22 15:42) Difficulty Breathing tree fruit Allergy (Intermediate, Uncoded 10/22/22 15:42) hives FRUIT Allergy (Mild, Uncoded 10/22/22 15:42) ITCHY THROAT Do you need a note to return to daycare/school/sports/work: Yes HPI HPI Comments History of Present Illness Details This is a 42-year-old male with history of asthma who presents to the office today for sick visit. Patient complaining of difficulty breathing and wheezing x2 weeks. Patient states his allergies have been really bad the past 2 weeks and he started to developed a respiratory tract infection several days ago. Patient has noticed worsening shortness of breath and wheezing since then. He reports low-grade temperatures, dry cough, sore throat, and congestion/rhinorrhea. [facility] Medical History Erectile dysfunction Generalized anxiety disorder History of opioid abuse Opioid use disorder Seasonal allergies Surgical History History of amblyopia Family History Father HTN (hypertension) Stroke Mother Hypothyroidism Anxiety Stroke Diabetes mellitus HTN (hypertension) Sister HTN (hypertension) Paternal Grandfather No problems noted. Paternal Grandmother Alzheimer's disease Brother No problems noted. Sister No problems noted. Daughter No problems noted. Daughter No problems noted. Social History Household Members: Significant Other and Children Alcohol intake: never Patient Tobacco Use Status: Former Tobacco user e-Cigarette/Vaping Use: Currently Using Substance Use Type: Marijuana and Prescription Drugs Review of Systems Const All systems reviewed & are unremarkable except as noted in HPI and below Reports no additional complaints Eyes Reports no additional complaints ENT Reports no additional complaints Card Reports no additional complaints Resp Reports no additional complaints GI Reports no additional complaints Reports no additional complaints Musc Reports no additional complaints Skin/Breast Reports system reviewed and no additional complaints, except as documented Neuro Reports no additional complaints Psych Reports no additional complaints Endo Reports no additional complaints Darrel/Lymph Reports no additional complaints Aller/Immun Reports no additional complaints Physical Exam Vital Signs: Last Vital Signs Temp 98.3 F 04/09/23 13:00 Pulse 95 04/09/23 13:00 BP 130/80 04/09/23 13:00 Pulse Ox 93 04/09/23 13:00 Oxygen Delivery Method Room Air 04/09/23 13:00 Const Other: Vital signs reviewed. Constitutional: Non-toxic appearing. No acute distress. Well-developed and well-nourished. HEENT: Normocephalic and atraumatic. Tympanic membranes without erythema, edema, or bulging bilaterally. External auditory canals without erythema or edema bilaterally. Moist mucous membranes. No pharyngeal erythema or exudates. Skin: Warm and dry. No rashes or lesions noted. Neck: Full and painless range of motion. No cervical lymphadenopathy. Cardio: Regular rate and rhythm. No murmurs, gallops, or rubs. No lower extremity edema. No JVD. Pulmonary: + Mild accessory muscle usage and mild respiratory distress. Inspiratory and expiratory wheezing. Gastrointestinal: Soft, non-tender, and non-distended in all 4 quadrants. Normoactive bowel sounds in all 4 quadrants. Genitourinary: No CVA tenderness. Musculoskeletal: Normal range of motion in joints throughout the body. No deformity or other signs of injury. Neuro: Alert and oriented x4. Cranial nerves 2-12 grossly intact. No focal deficits appreciated. Psych: Normal mood and affect. Office Procedures Nebulizer Treatment Nebulizer Treatment [id number] RX initial, or Nebulizer Subsequent Treatment Office Meds albuterol sulfate 2.5 mg/3 mL (0.083 %) solution for nebulization Performing Provider: ANDRES Perez Performing Location: [facility] Administered by: Rachel Augustin RN on 04/09/23 13:27 Dose Route Admin Location Dispensed Lot Number Expiration Date [employer] 2.5 mg inhalation 3 mL [id number] 07/19/23 9804-8691-25 [facility] Assessment & Plan Assessment & Plan (1) Asthmatic bronchitis with acute exacerbation: Code(s): J45.901 - Unspecified asthma with (acute) exacerbation (2) Viral URI: Code(s): J06.9 - Acute upper respiratory infection, unspecified Plan This is a 42-year-old male who presented to the office today complaining of shortness of breath and wheezing in the setting of seasonal allergies and a viral URI. On physical examination, patient has diffuse inspiratory and expiratory wheezing and he is in mild respiratory distress with mild accessory muscle usage and audible wheezing. Patient was given an albuterol nebulizer treatment in the office with significant improvement in his symptoms and wheezing. He was offered a chest x-ray, but he declines at this time. Patient very likely has an acute asthmatic exacerbation in the setting of seasonal allergies viral URI. Patient sent home on PO azithromycin 500 mg today followed by 250 mg daily x4 days and PO prednisone 40mg daily x 5 days. He was also given benzonatate as needed for cough any refill on his albuterol inhaler. Recommended symptomatic management including rest, increased fluids, advil/tylenol for pain/fever, and over the counter throat lozenges/decongestants. Patient is maintaining oxygen saturations greater than 92% on room air. Patient feels comfortable with discharge home. He was instructed to follow up here or proceed directly to the emergency room for persistent or worsening symptoms Patient verbalized understanding and is agreeable with the plan. Orders: Orders AMB Nebulizer Treatment Today R06.2 - Wheezing Medications: New prednisone 40 mg (2 x 20 mg) PO DAILY 10 tabs 0RF azithromycin For 250 mg dose pack: take 500 mg today (day 1), then 250 mg for 4 days (days 2-5) PO 6 tabs 0RF benzonatate 100 mg PO TID PRN 14 caps 0RF cough Refilled albuterol sulfate 90 mcg/actuation 2 inhalations inhalation QID PRN 6.7 grams 1RF shortness of breath or wheezing 30 days Coding Level of Care Code Est Pt Level 3 (25909) Diagnoses Asthmatic bronchitis with acute exacerbation J45.901 Viral URI J06.9 CPT Codes Nebulizer Treatment - Nebulizer Treatment, initial or subsequent: [id number] RX initial, or Nebulizer Subsequent Treatment ([id number])
[2023-04-09 13:00] VITALS: BP 130/80; PULSE 95; TEMP 36.8; O2SAT 93
== END 2023-04-09 13:51 | disposition home or self-care (01) ==
PROVIDERS: PCP Internal Medicine; Visit Provider Physician Assistant Medical
DX: J45.901 Unspecified asthma with (acute) exacerbation (principal); J06.9 Acute upper respiratory infection, unspecified; R06.2 Wheezing
CPT/HCPCS: 94640; 99213; J7613

== ENCOUNTER 2023-04-10 19:27 | Emergency (ER) | payer OTHER, SELFPAY ==
--- NOTE | ~2023-04-10 | XR_ITS ---
EXAMINATION: XR chest 2V CLINICAL INFORMATION: Shortness of breath wheezing COMPARISON: Prior chest x-ray September 2022 TECHNIQUE: XR chest 2V, 2 Views Lungs and Shannan: Both lungs are clear. Pleura: Normal. Costophrenic angles are sharp. No pneumothorax. Heart: The heart is normal in size. Mediastinum: The mediastinum is within normal limits.. Bones: Skeletal structures included are normal for patient's age. XR/XR chest 2V IMPRESSION: Normal chest x-ray.
[2023-04-10 19:57] VITALS: BP 173/102; PULSE 94; RESP 26; TEMP 37.1; O2SAT 93; BMI 27.1
--- NOTE | 2023-04-10 19:57 | ED.GENADULT ---
HPI - General Adult General Chief complaint: Asthma Stated complaint: Bronchitis, trouble breathing Time Seen by Provider: 04/10/23 22:16 Source: patient, RN notes reviewed and old records reviewed Mode of arrival: ambulatory Limitations: no limitations History of Present Illness HPI narrative: 42-year-old male with past medical history significant for an asthma presents for evaluation of shortness of breath. 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 He also endorses some nasal congestion Related Data Previous Rx's Medication Instructions Recorded ibuprofen 800 mg tablet 800 mg PO Q8H PRN pain #20 tabs 07/18/20 omeprazole 40 mg capsule,delayed 40 mg PO DAILY #20 caps 06/23/21 release clonidine HCl 0.1 mg tablet 0.1 mg PO TID PRN anxiety 3 days 04/03/22 #9 tabs naloxone 4 mg/actuation nasal 4 mg intranasal Q2M PRN opioid 09/18/22 spray (Narcan) overdose #2 ea sertraline 25 mg tablet 25 mg PO DAILY #7 tabs 09/25/22 buprenorphine 100 mg/0.5 mL 100 mg (0.5 mL) subcut .monthly 09/28/22 solution,exten.rel.subcutaneous #0.5 mL syringe (Sublocade) buprenorphine 300 mg/1.5 mL 300 mg (1.5 mL) subcut .monthly 09/28/22 solution,exten.rel.subcutaneous #1.5 mL syringe (Sublocade) sertraline 50 mg tablet 50 mg PO DAILY #30 tabs 10/02/22 prednisone 20 mg tablet 60 mg (3 x 20 mg) PO DAILY 5 days 10/14/22 #15 tabs [facility], OUD (Reset-O #1 ea 10/22/22 Digital Gwendolyn (OUD)) buprenorphine 8 mg-naloxone 2 mg 1 film sublingual BID #2 ea 10/29/22 sublingual film (Suboxone) albuterol sulfate 90 mcg/actuation 2 inh inhalation QID PRN shortness 04/09/23 aerosol inhaler of breath or wheezing 30 days #6.7 grams azithromycin 250 mg tablet See Rx Instructions PO .COMPLEX #6 04/09/23 tabs benzonatate 100 mg capsule 100 mg PO TID PRN cough #14 caps 04/09/23 prednisone 20 mg tablet 40 mg (2 x 20 mg) PO DAILY #10 tabs 04/09/23 azithromycin 250 mg tablet See Rx Instructions PO .COMPLEX #6 04/10/23 tabs prednisone 20 mg tablet 40 mg (2 x 20 mg) PO DAILY #10 tabs 04/10/23 Allergies Allergy/AdvReac Type Severity Reaction Status Date / Time shellfish derived Allergy Difficulty Verified 10/22/22 15:42 Breathing tree fruit Allergy Intermediate hives Uncoded 10/22/22 15:42 FRUIT Allergy Mild ITCHY Uncoded 10/22/22 15:42 THROAT Review of Systems Constitutional: Constitutional: Reports body ache(s), Reports chills, Reports fever(s) and Denies headache(s) ENT: Denies headache(s), Denies sinus pain and Denies sore throat Cardiovascular: Cardiovascular: Reports dyspnea Respiratory: Respiratory: Reports cough, Reports pain with cough and Reports dyspnea Gastrointestinal: Gastrointestinal: Denies abdominal pain, Denies nausea and Denies vomiting Musculoskeletal: Musculoskeletal: Denies back pain Integumentary/Breasts: Skin/Breast: Denies rash Neurologic: Denies headache(s) PMFSH Past Medical History Medical History Erectile dysfunction Generalized anxiety disorder History of opioid abuse Opioid use disorder Seasonal allergies Surgical History History of amblyopia Family History Family History Father HTN (hypertension) Stroke Mother Hypothyroidism Anxiety Stroke Diabetes mellitus HTN (hypertension) Sister HTN (hypertension) Paternal Grandfather No problems noted. Paternal Grandmother Alzheimer's disease Brother No problems noted. Sister No problems noted. Daughter No problems noted. Daughter No problems noted. Social History Social History Household Members: Significant Other and Children Alcohol intake: never Patient Tobacco Use Status: Former Tobacco user Smoked in Last 30 Days: No e-Cigarette/Vaping Use: Currently Using Use of substances other than those prescribed or required for medical reasons: No Substance Use Type: Marijuana and Prescription Drugs Advance Directives: No Advance Directives Information Provided: No Physical Exam ED Vital Signs: Vital Signs - 24 hr 04/10/23 19:57 04/10/23 20:22 04/10/23 20:34 Temperature 98.8 F 98.2 F Pulse Rate 94 91 87 Respiratory Rate 26 H 21 H 16 Blood Pressure 173/102 H 160/91 H Pulse Oximetry 93 94 Oxygen Delivery Method Room Air Room Air 04/10/23 21:35 04/10/23 22:20 Temperature 98.5 F Pulse Rate 94 101 H Respiratory Rate 16 20 Blood Pressure 146/86 H Pulse Oximetry Oxygen Delivery Method BMI result Body Mass Index 27.1 Const General: healthy appearing, comfortable, no acute distress, alert and awake Nutritional Appearance: well nourished Orientation/consciousness: patient oriented x3 HENMT Head: Yes normocephalic and Yes atraumatic Eyes Eyelids: Yes eyelids normal Conjunctivae: conjunctivae normal Sclerae: sclerae normal Corneas: corneas normal Pupils: Equal, round and reactive pupils present EOM: EOMs intact bilaterally Neck Neck: Yes full ROM Resp Effort & Inspection: normal respiratory effort, able to speak in complete sentences and not labored Auscultation: not clear to auscultation bilaterally and wheezes (Moderate diffuse expiratory wheeze) expiratory wheezes Cardio Rate: regular rate Rhythm: regular rhythm GI Inspection: No distended Palpation (GI): Soft to palpation, not firm, nontender, no guarding and not rigid Skin General skin exam: elasticity normal Neuro General: patient oriented x3 Cranial nerves: Yes Equal, round and reactive pupils present and Yes Bilaterally intact EOM present Cognition (Neuro): normal cognition Extrem Other: Moving all extremities well without any obvious deformities Course Course Course Narrative: This is an RME: Additional HPI, ROS, PE not included below will be deferred to primary provider. This is a 25-mpye-jvl-male, with a hx of asthma, presenting to the emergency department with a complaint of shortness of breath x 3 weeks. Pt audible wheezing. Pt was seen at urgent care yesterday and was sent medications however he was unable to pick them up as there was an error at the pharmacy. He has been using his inhaler - last used 1 hour ago. Reporting chest pain with inspiration. +Fevers. Inspiratory and expiratory wheezing, with prolonged expiratory phase wheezing noted. Plan: Medications Administered Discontinued Medications Generic Name Dose Route Start Last Admin Trade Name Alexander PRN Reason Stop Dose Admin Albuterol Sulfate 2.5 mg/ 5 mg 04/10/23 20:28 04/10/23 20:31 Albuterol Sulfate 2.5 mg INHALE 04/10/23 20:29 5 mg ONCE ONE Administration Albuterol Sulfate 2.5 mg/ 5 mg 04/10/23 21:29 04/10/23 21:35 Albuterol Sulfate 2.5 mg INHALE 04/10/23 21:30 5 mg ONCE ONE Administration Prednisone 60 mg 04/10/23 20:07 04/10/23 20:18 Prednisone 20 Mg Tablet PO 04/10/23 20:08 60 mg ONCE ONE Administration Medical Decision Making Medical Decision Making MDM Narrative: 42-year-old male with longstanding history of asthma presents for evaluation of shortness of breath. A time my evaluation he has received 10 mg of albuterol still has mild wheezing. Will over his oxygen saturation is 95% on room air. He reports feeling much better. His heart rate is about 100 which is likely increased related to albuterol. Chest x-ray is clear. The patient feels comfortable discharging I feel it is appropriate for discharge at this time. Given he has some upper respiratory symptoms as well we will cover with azithromycin in addition to prednisone. He has albuterol at home. Use encouraged to follow-up with his PCP and may consider nebulizer in the future Differential Diagnosis Differential Diagnoses: The differential diagnosis associated with the presentation includes Acute asthma exacerbation Acute bronchitis Upper respiratory infection Viral syndrome COVID-19 Sinusitis Lab Data Labs: Lab Results 04/10/23 Range/Units 20:19 Influenza Type A (PCR) NEGATIVE (Negative) Influenza Type B (PCR) NEGATIVE (Negative) RSV RNA Qual (PCR) NEGATIVE (Negative) SARS-CoV-2 RNA (RT-PCR) NEGATIVE (Negative) Independent Interpretation I performed an independent interpretation of an: Plain X-Ray (No acute pathology) Radiology Impression Discussion of test interpretation with radiology: I have reviewed the radiologist's reading. Radiologist Impression: Normal chest x-ray Discharge Plan Discharge Clinical Impression: Acute asthma exacerbation Patient Disposition: Home, Self-Care Instructions: Asthma (ED) Additional Instructions: Your chest x-ray was clear. Your symptoms are most likely related to an asthma exacerbations Take prednisone and azithromycin as prescribed, your given a dose of steroids in the emergency department Use your albuterol inhaler 2 puffs every 4 hours for the next 2 hours and then continue as needed Follow-up with your primary doctor Prescriptions: New azithromycin 250 mg tablet See Rx Instructions .ROUTE .COMPLEX Qty: 6 0RF Rx Instructions: For 250 mg dose pack: take 500 mg today (day 1), then 250 mg for 4 days (days 2-5) prednisone 20 mg tablet 40 mg PO DAILY Qty: 10 0RF No Action Sublocade 300 mg/1.5 mL solution, extended rel syringe 300 mg subcut .monthly Qty: 1.5 1RF Sublocade 100 mg/0.5 mL solution, extended rel syringe 100 mg subcut .monthly Qty: 0.5 5RF buprenorphine-naloxone [Suboxone] 8-2 mg film 1 film sublingual BID Qty: 2 0RF ibuprofen 800 mg tablet 800 mg PO Q8H PRN (Reason: pain) Qty: 20 0RF omeprazole 40 mg capsule,delayed release(DR/EC) 40 mg PO DAILY Qty: 20 0RF prednisone 20 mg tablet 60 mg PO DAILY 5 Days Qty: 15 0RF prednisone 20 mg tablet 40 mg PO DAILY Qty: 10 0RF azithromycin 250 mg tablet See Rx Instructions PO .COMPLEX Qty: 6 0RF Rx Instructions: For 250 mg dose pack: take 500 mg today (day 1), then 250 mg for 4 days (days 2-5) PO benzonatate 100 mg capsule 100 mg PO TID PRN (Reason: cough) Qty: 14 0RF albuterol sulfate 90 mcg/actuation HFA aerosol inhaler 2 inh inhalation QID PRN (Reason: shortness of breath or wheezing) 30 Days Qty: 6.7 1RF naloxone [Narcan] 4 mg/actuation spray,non-aerosol 4 mg intranasal Q2M PRN (Reason: opioid overdose) Qty: 2 0RF Rx Instructions: spray 1 dose into ONE nostril; alternate nostrils w each dose until help arrives sertraline 25 mg tablet 25 mg PO DAILY Qty: 7 0RF clonidine HCl 0.1 mg tablet 0.1 mg PO TID PRN (Reason: anxiety) 3 Days Qty: 9 0RF sertraline 50 mg tablet 50 mg PO DAILY Qty: 30 0RF (DME) Reset-O Digital Gwendolyn (OUD) Misc See Rx Instructions .MEDSUPPLY Qty: 1 3RF Rx Instructions: As directed (3-4 times a week) 84 days Interventions: ED Discharge Assessment Last Done: 04/10/23 22:59 Discharge Date/Time: 04/10/23 22:59
[2023-04-10] MEDS: predniSONE 20 MG TABLET 60 MG PO (20:18)
[2023-04-10 20:22] VITALS: BP 160/91; PULSE 91; RESP 21; TEMP 36.8; O2SAT 94
[2023-04-10] MEDS: Albuterol Sulfate 2.5 MG, Albuterol Sulfate (0.083%) 2.5 MG 5 MG INHALE ×2 (20:31→21:35)
[2023-04-10 20:34] VITALS: PULSE 87; RESP 16; O2SAT 93
[2023-04-10 21:14] LABS: Influenza A PCR NEGATIVE (Negative); Influenza B PCR NEGATIVE (Negative); Resp Syncy Virus RNA Qual PCR NEGATIVE (Negative); SARS COV2 PCR INHOUSE NEGATIVE (Negative)
[2023-04-10 21:35] VITALS: PULSE 94; RESP 16; O2SAT 91
[2023-04-10 22:20] VITALS: BP 146/86; PULSE 101; RESP 20; TEMP 36.9
== END 2023-04-10 22:59 | disposition home or self-care (01) ==
PROVIDERS: Physician Assistant Medical; Emergency Provider Internal Medicine; PCP Internal Medicine
DX: J45.901 Unspecified asthma with (acute) exacerbation (principal); Z20.822 Contact with and (suspected) exposure to COVID-19; Z20.828 Contact with and (suspected) exposure to other viral communicable diseases
CPT/HCPCS: 0241U; 71046; 94640; 99284; 99285

== ENCOUNTER 2023-04-28 03:07 | Emergency (ER) | payer OTHER, SELFPAY ==
[2023-04-28 03:11] VITALS: BP 157/99; PULSE 112; RESP 27; TEMP 36.4; O2SAT 91; BMI 25.8
--- NOTE | 2023-04-28 03:33 | ED.SOB ---
HPI - SOB/Dyspnea General Chief Complaint: Dyspnea Stated Complaint: Asthma Time Seen by Provider: 04/28/23 03:30 Source: patient Mode of arrival: ambulatory Limitations: no limitations History of Present Illness HPI Narrative: 42-year-old male with past medical history significant for asthma present for evaluation of shortness of breath, symptoms start to worsen about week ago and patient ran out of albuterol inhaler. Decline history of smoking cigarettes, admitted that he talk oxycodone brought it from the street. Patient in mild respiratory distress and wheezing. No fever, no chills Related Data Previous Rx's Medication Instructions Recorded ibuprofen 800 mg tablet 800 mg PO Q8H PRN pain #20 tabs 07/18/20 omeprazole 40 mg capsule,delayed 40 mg PO DAILY #20 caps 06/23/21 release clonidine HCl 0.1 mg tablet 0.1 mg PO TID PRN anxiety 3 days 04/03/22 #9 tabs naloxone 4 mg/actuation nasal 4 mg intranasal Q2M PRN opioid 09/18/22 spray (Narcan) overdose #2 ea sertraline 25 mg tablet 25 mg PO DAILY #7 tabs 09/25/22 buprenorphine 100 mg/0.5 mL 100 mg (0.5 mL) subcut .monthly 09/28/22 solution,exten.rel.subcutaneous #0.5 mL syringe (Sublocade) buprenorphine 300 mg/1.5 mL 300 mg (1.5 mL) subcut .monthly 09/28/22 solution,exten.rel.subcutaneous #1.5 mL syringe (Sublocade) sertraline 50 mg tablet 50 mg PO DAILY #30 tabs 10/02/22 prednisone 20 mg tablet 60 mg (3 x 20 mg) PO DAILY 5 days 10/14/22 #15 tabs [employer], OUD (Reset-O #1 ea 10/22/22 Digital Gwendolyn (OUD)) buprenorphine 8 mg-naloxone 2 mg 1 film sublingual BID #2 ea 10/29/22 sublingual film (Suboxone) albuterol sulfate 90 mcg/actuation 2 inh inhalation QID PRN shortness 04/09/23 aerosol inhaler of breath or wheezing 30 days #6.7 grams azithromycin 250 mg tablet See Rx Instructions PO .COMPLEX #6 04/09/23 tabs benzonatate 100 mg capsule 100 mg PO TID PRN cough #14 caps 04/09/23 prednisone 20 mg tablet 40 mg (2 x 20 mg) PO DAILY #10 tabs 04/09/23 azithromycin 250 mg tablet See Rx Instructions PO .COMPLEX #6 04/10/23 tabs prednisone 20 mg tablet 40 mg (2 x 20 mg) PO DAILY #10 tabs 04/10/23 albuterol sulfate 90 mcg/actuation 1 inh inhalation QID PRN shortness 04/28/23 aerosol inhaler of breath or wheezing #8.5 grams prednisone 20 mg tablet 20 mg PO BID #10 tabs 04/28/23 Allergies Allergy/AdvReac Type Severity Reaction Status Date / Time shellfish derived Allergy Difficulty Verified 10/22/22 15:42 Breathing tree fruit Allergy Intermediate hives Uncoded 10/22/22 15:42 FRUIT Allergy Mild ITCHY Uncoded 10/22/22 15:42 THROAT Review of Systems Review of Systems: All other systems are reviewed and are negative Constitutional: Reports as per HPI and Reports no additional constitutional complaints Eyes: Reports as per HPI and Reports no additional eye complaints Reports system reviewed and no additional complaints, except as documented Cardiovascular: Reports as per HPI and Reports no additional cardiovascular complaints Respiratory: Reports as per HPI and Reports no additional respiratory complaints Gastrointestinal: Reports as per HPI and Reports no additional gastrointestinal complaints Genitourinary: Reports no additional female genitourinary complaints Musculoskeletal: Reports no additional musculoskeletal complaints Skin/Breast: Reports system reviewed and no additional complaints, except as docu Psychiatric: Reports no additional psychiatric complaints Endocrine: Reports no additional endocrine complaints Hematologic/Lymphatic: Reports no additional hematologic/lymphatic complaints Allergic/Immunologic: Reports no additional allergic/immunologic complaints Reports system reviewed and no additional complaints, except as documented and Reports Abnormal speech present [facility] Past Medical History Medical History Opioid use disorder Generalized anxiety disorder Erectile dysfunction Seasonal allergies History of opioid abuse Surgical History History of amblyopia Family History Family History Father HTN (hypertension) Stroke Mother Hypothyroidism Anxiety Stroke Diabetes mellitus HTN (hypertension) Sister HTN (hypertension) Paternal Grandfather No problems noted. Paternal Grandmother Alzheimer's disease Brother No problems noted. Sister No problems noted. Daughter No problems noted. Daughter No problems noted. Social History Social History Household Members: Significant Other and Children Alcohol intake: never Patient Tobacco Use Status: Former Tobacco user e-Cigarette/Vaping Use: Currently Using Substance Use Type: Marijuana and Prescription Drugs Advance Directives: No Advance Directives Information Provided: Yes Physical Exam Vital Signs: Vital Signs: Last Vital Signs Temp 98.0 F 04/28/23 04:45 Pulse 110 H 04/28/23 04:45 Resp 14 04/28/23 04:45 BP 136/93 H 04/28/23 04:45 Pulse Ox 98 04/28/23 04:45 O2 Del Method Room Air 04/28/23 04:45 BMI result Body Mass Index 25.8 Vital signs have been reviewed and appear to be correct. Blood pressure elevated. Heart rate elevated. Respiratory rate elevated. Temperature normal. Oxygen saturation low. Appearance: Alert. Oriented X3. Mild acute respiratory distress. Head: Normal external exam. Normocephalic. Atraumatic. No Jones signs noted. No raccoon eyes noted Eyes: PERRLA. EOMI. Conjunctiva and sclera normal. Eyelids normal. ENT: TM's Normal. Pharynx normal. Uvula midline. Moist mucous membranes. No trismus noted. No drooling noted. No muffled voice noted. Neck: Normal inspection. Neck supple. FROM. No adenopathy. Thyroid Normal. No meningeal signs. No neck mass noted. CVS: Normal heart rate and rhythm. Heart sound normal. No murmurs noted. Pulses normal throughout. Respiratory: Mild respiratory distress. Painless inspiration. Breath sounds normal. Diffuse mild expiratory wheezing with prolonged expiration. Chest nontender. No accessory muscle usage noted or decreased air movement noted. Abdomen: Soft and nontender. Bowel sounds normal in all 4 quadrants. No distention noted. No organomegaly noted. No visible injury noted. Back: No CVA tenderness. Full range of motion noted. Skin: Skin warm and dry. Normal skin color. Normal skin turgor. No rashes/lesions/lacerations noted. Extremities: No lower extremity edema. Extremities exhibit normal range of motion. Extremities nontender. Neuro: Oriented X 3. Cranial nerve exam: II-XII are grossly intact No motor deficit. No sensory deficit. Reflexes normal. Course Reevaluation(s) Reevaluation #1: Patient feels better, no difficulty breathing, tachycardia and hypoxia has improved, chest x-ray unremarkable, post exertional O2 sat is 94% room air, will discharge the patient on bronchodilator and prednisone Time: 05:14 Medications Administered Discontinued Medications Generic Name Dose Route Start Last Admin Trade Name Freq PRN Reason Stop Dose Admin Albuterol Sulfate 2.5 mg/ 0 mg 04/28/23 03:35 04/28/23 03:44 Albuterol/Ipratropium 3 ml INHALE 04/28/23 03:36 5 dose ONCE ONE Administration Methylprednisolone Sodium Succinate 125 mg 04/28/23 03:31 04/28/23 03:53 Methylprednisolone Sod Succ 125 Mg/2 Ml Vial IVPUSH 04/28/23 03:32 125 mg ONCE ONE Administration Medical Decision Making Differential Diagnosis Differential Diagnoses: The differential diagnosis associated with the presentation includes (Acute asthma exacerbation, bronchitis, pneumonia, respiratory failure.) Admission/Observation Consideration of admission/observation: Escalation of care including admission/observation considered Lab Data [facility] Lab Attestation statement: I reviewed the patient's lab results. 04/28/23 03:27 04/28/23 03:27 Labs: Lab Results 04/28/23 Range/Units 03:27 WBC 8.6 (4.8-10.8) X10*3/uL RBC 5.51 (4.60-5.80) X10*6/uL Hgb 14.8 (14.0-18.0) g/dl Hct 44.6 (42.0-52.0) % MCV 80.9 (80.0-98.0) fL MCH 26.9 L (27.0-33.0) pg MCHC 33.2 (31.0-36.0) g/dl RDW 13.2 (11.0-16.0) % Plt Count 266 (160-400) X10*3/uL MPV 10.4 (9.4-12.4) fL Immature Gran % (Auto) 0.7 H (0.0-0.4) % Neut % (Auto) 41.8 L (45-73) % Lymph % (Auto) 27.6 (20-40) % [place] % (Auto) 8.8 (2-11) % Eos % (Auto) 20.1 H (0-4) % Baso % (Auto) 1.0 (0-2) % Lymph # (Auto) 2.4 (1.2-4.9) X10*3/uL [place] # (Auto) 0.8 (0.1-1.2) X10*3/uL Eos # (Auto) 1.7 H (0.0-0.4) X10*3/uL Baso # (Auto) 0.1 (0.0-0.2) X10*3/uL Abs Immat Gran (auto) 0.06 H (0.00-0.03) X10*3/uL Absolute Neuts (auto) 3.6 (2.0-8.3) x10*3/uL Absolute Nucleated RBC 0.000 (0.0-0.012) X10*3/uL Nucleated RBC % (auto) 0.0 (0.0-0.2) /100WBC Smear Tech's Comments VERIFIED Sodium 140 (135-145) mmol/L Potassium 4.2 (3.3-5.1) mmol/L Chloride 101 (96-108) mmol/L Carbon Dioxide 26 (22-29) mmol/L Anion Gap 17 (12-20) BUN 18 H (9-16) mg/dL Creatinine 0.84 (0.5-1.4) mg/dL Estim Creat Clear Calc 103.3 Estimated GFR > 60 Random Glucose 137 H (60-115) mg/dL Calcium 9.9 (8.4-10.2) mg/dL Total Bilirubin 0.3 (0.0-1.0) mg/dL AST 20 (5-37) U/L ALT 26 (0-40) U/L Alkaline Phosphatase 103 (39-117) U/L Troponin I High Sens < 2.7 D (<3.5-35.0) ng/L Total Protein 7.4 (6.5-8.0) g/dL Albumin 4.2 (3.5-5.0) g/dL Independent Interpretation I performed an independent interpretation of an: Plain X-Ray (No acute pathology.) Radiology Impression Discussion of test interpretation with radiology: I have reviewed the radiologist's reading. Chronic Conditions Patient?s care impacted by: Other (History of asthma, recreational drug abuse.) Discharge Plan Discharge Clinical Impression: Asthma with exacerbation Patient Disposition: Home, Self-Care Instructions: Asthma (ED) Prescriptions: New albuterol sulfate 90 mcg/actuation HFA aerosol inhaler 1 inh inhalation QID PRN (Reason: shortness of breath or wheezing) Qty: 8.5 0RF prednisone 20 mg tablet 20 mg PO BID Qty: 10 0RF No Action Sublocade 300 mg/1.5 mL solution, extended rel syringe 300 mg subcut .monthly Qty: 1.5 1RF Sublocade 100 mg/0.5 mL solution, extended rel syringe 100 mg subcut .monthly Qty: 0.5 5RF buprenorphine-naloxone [Suboxone] 8-2 mg film 1 film sublingual BID Qty: 2 0RF ibuprofen 800 mg tablet 800 mg PO Q8H PRN (Reason: pain) Qty: 20 0RF omeprazole 40 mg capsule,delayed release(DR/EC) 40 mg PO DAILY Qty: 20 0RF prednisone 20 mg tablet 60 mg PO DAILY 5 Days Qty: 15 0RF azithromycin 250 mg tablet See Rx Instructions .ROUTE .COMPLEX Qty: 6 0RF Rx Instructions: For 250 mg dose pack: take 500 mg today (day 1), then 250 mg for 4 days (days 2-5) prednisone 20 mg tablet 40 mg PO DAILY Qty: 10 0RF prednisone 20 mg tablet 40 mg PO DAILY Qty: 10 0RF azithromycin 250 mg tablet See Rx Instructions PO .COMPLEX Qty: 6 0RF Rx Instructions: For 250 mg dose pack: take 500 mg today (day 1), then 250 mg for 4 days (days 2-5) PO benzonatate 100 mg capsule 100 mg PO TID PRN (Reason: cough) Qty: 14 0RF albuterol sulfate 90 mcg/actuation HFA aerosol inhaler 2 inh inhalation QID PRN (Reason: shortness of breath or wheezing) 30 Days Qty: 6.7 1RF naloxone [Narcan] 4 mg/actuation spray,non-aerosol 4 mg intranasal Q2M PRN (Reason: opioid overdose) Qty: 2 0RF Rx Instructions: spray 1 dose into ONE nostril; alternate nostrils w each dose until help arrives sertraline 25 mg tablet 25 mg PO DAILY Qty: 7 0RF clonidine HCl 0.1 mg tablet 0.1 mg PO TID PRN (Reason: anxiety) 3 Days Qty: 9 0RF sertraline 50 mg tablet 50 mg PO DAILY Qty: 30 0RF (DME) Reset-O Digital Gwendolyn (OUD) Misc See Rx Instructions .MEDSUPPLY Qty: 1 3RF Rx Instructions: As directed (3-4 times a week) 84 days Referrals: Kristina Doe MD [Primary Care Provider] -
[2023-04-28 03:40] VITALS: PULSE 107; RESP 21; O2SAT 97
[2023-04-28 03:49] LABS: Alanine Aminotransferase 26 U/L (0-40); Albumin Level 4.2 g/dL (3.5-5.0); Alkaline Phosphatase 103 U/L (39-117); Anion Gap 17 (12-20); Aspartate Amino Transferase 20 U/L (5-37); Bilirubin Total 0.3 mg/dL (0.0-1.0); Blood Urea Nitrogen 18 mg/dL (9-16); Calcium 9.9 mg/dL (8.4-10.2); Carbon Dioxide 26 mmol/L (22-29); Chloride 101 mmol/L (96-108); Creatinine Clr Calc Pharmacy 103.3; Estimated Glomerular Filt Rate > 60; Glucose Random 137 mg/dL (60-115); Potassium 4.2 mmol/L (3.3-5.1); Sodium 140 mmol/L (135-145); Total Protein 7.4 g/dL (6.5-8.0)
[2023-04-28 04:45] VITALS: BP 136/93; PULSE 110; RESP 14; TEMP 36.7; O2SAT 98
== END 2023-04-28 05:26 | disposition home or self-care (01) ==
PROVIDERS: Emergency Provider Emergency Medicine; PCP Internal Medicine
DX: J45.901 Unspecified asthma with (acute) exacerbation (principal); R06.02 Shortness of breath; Z79.899 Other long term (current) drug therapy
CPT/HCPCS: 36415; 71045; 80053; 84484; 85025; 94640; 96374; 99284; J2930

== ENCOUNTER 2023-05-21 01:52 | Inpatient (IN) | payer OTHER, SELFPAY ==
[2023-05-21] VITALS (12 sets, daily range): BP systolic 129–180; BP diastolic 80–107; PULSE 94–134; RESP 14–24; TEMP 36.8–37; O2SAT 88–99; BMI 25.1; BMI 26.5
--- NOTE | ~2023-05-21 | XR_ITS ---
EXAMINATION: XR CHEST CLINICAL INFORMATION: Shortness of breath. COMPARISON: 04/28/2023. TECHNIQUE: Frontal view of the chest was obtained. FINDINGS: The cardiomediastinal silhouette is normal. There is no focal lung consolidation or pleural effusion. The bony structures and soft tissues are unremarkable. XR/XR chest 1V IMPRESSION: No active cardiopulmonary disease.
--- NOTE | 2023-05-21 02:14 | ECG_ITS ---
Test Reason : DYSPNEA Blood Pressure : / mmHG Vent. Rate : 130 BPM Atrial Rate : 130 BPM P-R Int : 152 ms QRS Dur : 080 ms QT Int : 296 ms P-R-T Axes : 069 081 053 degrees QTc Int : 435 ms Sinus tachycardia Nonspecific T wave abnormality Inferior leads Abnormal ECG When compared with ECG of 14-OCT-2022 17:23, No significant change was found Referred By: Jomar Reynolds Electronically Signed By:VINOD BYRD MD
[2023-05-21 02:30] LABS: MANUAL DIFF FLAG NO
[2023-05-21 02:32] LABS: Basophils Absolute Auto 0.1 X10*3/uL (0.0-0.2); Basophils Percent Auto 0.8 % (0-2); Eosinophils Absolute Auto 1.6 X10*3/uL (0.0-0.4); Eosinophils Percent Auto 15.2 % (0-4); Hematocrit 45.3 % (42.0-52.0); Hemoglobin 14.6 g/dl (14.0-18.0); Imm Gran Abs Auto 0.08 X10*3/uL (0.00-0.03); Imm Gran Pct Auto 0.7 % (0.0-0.4); Lymphocytes Absolute Auto 2.5 X10*3/uL (1.2-4.9); Mean Corpuscular HGB Conc 32.2 g/dl (31.0-36.0); Mean Corpuscular Hemoglobin 26.3 pg (27.0-33.0); Mean Corpuscular Volume 81.6 fL (80.0-98.0); Mean Platelet Volume 10.4 fL (9.4-12.4); Monocytes Absolute Auto 0.9 X10*3/uL (0.1-1.2); Monocytes Percent Auto 8.4 % (2-11); Neutrophils Absolute Auto 5.5 x10*3/uL (2.0-8.3); Neutrophils Percent Auto 51.9 % (45-73); Platelet Count 316 X10*3/uL (160-400); Red Blood Count 5.55 X10*6/uL (4.60-5.80); Red Cell Distribution Width 13.1 % (11.0-16.0); White Blood Count 10.7 X10*3/uL (4.8-10.8)
[2023-05-21 02:44] LABS: Anion Gap 14 (12-20); Blood Urea Nitrogen 19 mg/dL (9-16); Carbon Dioxide 31 mmol/L (22-29); Chloride 100 mmol/L (96-108); Creatinine Clr Calc Pharmacy 114.2; Estimated Glomerular Filt Rate > 60; Glucose Random 151 mg/dL (60-115); Potassium 4.2 mmol/L (3.3-5.1); Sodium 141 mmol/L (135-145)
[2023-05-21 02:52] LABS: Troponin-I High Sensitivity < 2.7 ng/L (<3.5-35.0)
--- NOTE | 2023-05-21 03:39 | ED_ITS ---
HPI - Pediatric SOB/Dyspnea General Chief Complaint: Dyspnea Stated Complaint: SOB Time Seen by Provider: 05/21/23 02:05 Source: patient Mode of arrival: EMS History of Present Illness HPI Narrative: 42-year-old male History of asthma who was brought to emergency department by ambulance for evaluation of shortness of breath. The patient states that he has had a cough which is productive of thick sputum x1 month. he states he has been feeling short of breath on and off for 1 week. The patient states that he has been using intranasal opiates. Patient states that he crushes up Percocet pills that he buys on the street and sniffed them3 to 4 times a day. He states that he used 3 crushed up Percocet prior to coming to the emergency department in use them intranasally. After using these drugs, his shortness of breath became worse and he had to call an ambulance. He states he has had intermittent fever and chills. He denied nausea, vomiting or diarrhea. He denied chest pain. Related Data Allergies Allergy/AdvReac Type Severity Reaction Status Date / Time shellfish derived Allergy Difficulty Verified 10/22/22 15:42 Breathing tree fruit Allergy Intermediate hives Uncoded 10/22/22 15:42 FRUIT Allergy Mild ITCHY Uncoded 10/22/22 15:42 THROAT Pediatric Review of Systems 2 All systems ED: reviewed and negative except as stated PMF Past Medical History [facility] Narrative: Social history: He denies tobacco use. He denies alcohol use. States that he uses intranasal crushed up Percocet pills 3 to 4 times a day. Denies other drug use Medical History Opioid use disorder Generalized anxiety disorder Erectile dysfunction Seasonal allergies History of opioid abuse Surgical History History of amblyopia Family History Family History Father HTN (hypertension) Stroke Mother Hypothyroidism Anxiety Stroke Diabetes mellitus HTN (hypertension) Sister HTN (hypertension) Paternal Grandfather No problems noted. Paternal Grandmother Alzheimer's disease Brother No problems noted. Sister No problems noted. Daughter No problems noted. Daughter No problems noted. Social History Social History Household Members: Significant Other and Children Alcohol intake: never Patient Tobacco Use Status: Former Tobacco user Smoked in Last 30 Days: No e-Cigarette/Vaping Use: Currently Using Use of substances other than those prescribed or required for medical reasons: Yes Substance Use Type: Opiates Last Used Substance: Hours (ago) Advance Directives: No Advance Directives Information Provided: Yes Pediatric Exam 2 Narrative: Physical exam: exam: General: Awake, alert in no distress Head: Normocephalic, atraumatic EENT: PERRL, Lids normal, sclera normal, conjunctiva normal, nose normal , ears normal, throat without erythema or exudates Neck: Supple, no adenopathy, no trachea midline or C-spine tenderness Lung: breath sounds symmetric, Diffuse wheezing. No rales or rhonchi Chest: symmetric movement, nontender Heart: regular rate and rhythm, normal S1, S2 no murmurs or rubs Abdomen: soft, non-tender, nondistended, normal bowel sounds Back: no vertebral tenderness, no CVAT Extremities: no deformities, moves all extremities symmetrically Skin: no rashes, no lesion, normal color and warmth Neuro: Awake, alert, oriented, normal speech, cranial nerves intact, moves all extremities symmetrically Psych: Pleasant, cooperative Medications Administered Generic Name Dose Route Start Last Admin Trade Name Freq PRN Reason Stop Dose Admin Magnesium Sulfate 2 gm in 50 mls @ 25 mls/hr 05/21/23 06:09 05/21/23 06:19 Magnesium Sulfate/H2o IV 05/21/23 08:08 25 mls/hr ONCE ONE Administration Discontinued Medications Generic Name Dose Route Start Last Admin Trade Name Freq PRN Reason Stop Dose Admin Albuterol Sulfate 5 mg/ 7.5 mg 05/21/23 04:03 05/21/23 04:06 Albuterol Sulfate 2.5 mg INHALE 05/21/23 04:04 7.5 mg ONCE ONE Administration Albuterol Sulfate 5 mg/ 7.5 mg 05/21/23 05:09 05/21/23 05:13 Albuterol Sulfate 2.5 mg INHALE 05/21/23 05:10 7.5 mg ONCE ONE Administration Azithromycin 500 mg 05/21/23 03:49 05/21/23 03:57 Azithromycin 500 Mg Tablet PO 05/21/23 03:50 500 mg ONCE ONE Administration Methylprednisolone Sodium Succinate 125 mg 05/21/23 06:09 05/21/23 06:19 Methylprednisolone Sod Succ 125 Mg/2 Ml Vial IVPUSH 05/21/23 06:10 125 mg ONCE ONE Administration Prednisone 60 mg 05/21/23 03:49 05/21/23 03:57 Prednisone 20 Mg Tablet PO 05/21/23 03:50 60 mg ONCE ONE Administration Medical Decision Making Medical Decision Making MDM Narrative: 42-year-old male with history of asthma,opiate use disorder who crush and used intranasal Percocet prior to coming to the emergency department. he states he has been short of breath on off for the last week and after using the intranasal Percocet shortness of breath got worse. He also states that over the past month he has had aproductive cough. Vital signs revealed an elevated blood pressure of 180/96 , elevated heart rate 134 and elevated respiratory rate of 23. O2 saturation was 99% on room air. Lung exam did reveal diffuse wheezing. Following evaluation was ordered: CBC, CMP, troponin, chest x-ray one view. 06:47 Patient's laboratory evaluation was unremarkable. Chest x-ray did not reveal any acute pneumonia, pneumothorax or pneumonitis. The patient was initially treated with albuterol 7.5 mg nebulizer, Zithromax 500 mg orally and prednisone 60 mg orally. The patient however continued to have significant wheezing and required a 2nd dose of albuterol 7.5 mg nebulizer. Patient was then given Solu-Medrol 125 mg IV and magnesium 2 g IV. Patient continues to have significant wheezing. Patient's O2 saturation is 92% on room air but improves to 96% on 2 L of oxygen via nasal cannula. the patient has bronchospasm, possibly triggered by his intranasal Percocet use. I will discuss admission with the covering hospitalist. 07:30 I did discuss the patient's presentation with the covering hospitalist, Dr. Roberts. He requested a respiratory panel and urine drug screen which is pending urine collection. Patient will be admitted to the hospital service for further treatment. Differential Diagnosis Differential Diagnoses: The differential diagnosis associated with the presentation includes Differential diagnosis includes was not limited to pneumonia, bronchitis, pneumothorax, pneumonitis, bronchospasm , pneumonitis Admission/Observation Consideration of admission/observation: Escalation of care including admission/observation considered Consult Healthcare Provider Management of the patient was discussed with: Hospitalist Lab Data [facility] Lab Attestation statement: I reviewed the patient's lab results. My interpretation patient's laboratory evaluation is as follows: CBC was normal. Bicarb elevated 31. Glucose elevated 151. Troponin was below detectable limits. 05/21/23 02:25 05/21/23 02:25 Labs: Lab Results 05/21/23 Range/Units 02:25 WBC 10.7 (4.8-10.8) X10*3/uL RBC 5.55 (4.60-5.80) X10*6/uL Hgb 14.6 (14.0-18.0) g/dl Hct 45.3 (42.0-52.0) % MCV 81.6 (80.0-98.0) fL MCH 26.3 L (27.0-33.0) pg MCHC 32.2 (31.0-36.0) g/dl RDW 13.1 (11.0-16.0) % Plt Count 316 (160-400) X10*3/uL MPV 10.4 (9.4-12.4) fL Immature Gran % (Auto) 0.7 H (0.0-0.4) % Neut % (Auto) 51.9 (45-73) % Lymph % (Auto) 23.0 (20-40) % [place] % (Auto) 8.4 (2-11) % Eos % (Auto) 15.2 H (0-4) % Baso % (Auto) 0.8 (0-2) % Lymph # (Auto) 2.5 (1.2-4.9) X10*3/uL [place] # (Auto) 0.9 (0.1-1.2) X10*3/uL Eos # (Auto) 1.6 H (0.0-0.4) X10*3/uL Baso # (Auto) 0.1 (0.0-0.2) X10*3/uL Abs Immat Gran (auto) 0.08 H (0.00-0.03) X10*3/uL Absolute Neuts (auto) 5.5 (2.0-8.3) x10*3/uL Absolute Nucleated RBC 0.000 (0.0-0.012) X10*3/uL Nucleated RBC % (auto) 0.0 (0.0-0.2) /100WBC Sodium 141 (135-145) mmol/L Potassium 4.2 (3.3-5.1) mmol/L Chloride 100 (96-108) mmol/L Carbon Dioxide 31 H (22-29) mmol/L Anion Gap 14 (12-20) BUN 19 H (9-16) mg/dL Creatinine 0.76 (0.5-1.4) mg/dL Estim Creat Clear Calc 114.2 Estimated GFR > 60 Random Glucose 151 H (60-115) mg/dL Calcium 10.0 (8.4-10.2) mg/dL Troponin I High Sens < 2.7 (<3.5-35.0) ng/L Independent Interpretation I performed an independent interpretation of an: Plain X-Ray Interpretation: My interpretation of the patient's one-view chest x-ray is as follows: No acute disease Radiology Impression Discussion of test interpretation with radiology: I have reviewed the radiologist's reading. Radiologist Impression: XR chest 1V IMPRESSION: No active cardiopulmonary disease. Dictated By: Glenn Hoffman Critical Care Time Critical Care Time Critical Care Time: Yes Total Critical Care Time: 35 Attestation: Critical Care: The patient was critically ill with a high probability of imminent or life threatening deterioration. I spent greater than 30 minutes of discontinuous time evaluating the patient,delivering critical care at the bedside, discussing and evaluating pertinent data with consultants. Critical care time does not include time spent performing separately billable procedures or teaching. Total time spent performing critical care was 35 minutes. Discharge Plan Discharge Clinical Impression: Asthma exacerbation Prescriptions: No Action Sublocade 300 mg/1.5 mL solution, extended rel syringe 300 mg subcut .monthly Qty: 1.5 1RF Sublocade 100 mg/0.5 mL solution, extended rel syringe 100 mg subcut .monthly Qty: 0.5 5RF buprenorphine-naloxone [Suboxone] 8-2 mg film 1 film sublingual BID Qty: 2 0RF ibuprofen 800 mg tablet 800 mg PO Q8H PRN (Reason: pain) Qty: 20 0RF omeprazole 40 mg capsule,delayed release(DR/EC) 40 mg PO DAILY Qty: 20 0RF prednisone 20 mg tablet 60 mg PO DAILY 5 Days Qty: 15 0RF azithromycin 250 mg tablet See Rx Instructions .ROUTE .COMPLEX Qty: 6 0RF Rx Instructions: For 250 mg dose pack: take 500 mg today (day 1), then 250 mg for 4 days (days 2-5) prednisone 20 mg tablet 40 mg PO DAILY Qty: 10 0RF albuterol sulfate 90 mcg/actuation HFA aerosol inhaler 1 inh inhalation QID PRN (Reason: shortness of breath or wheezing) Qty: 8.5 0RF prednisone 20 mg tablet 20 mg PO BID Qty: 10 0RF prednisone 20 mg tablet 40 mg PO DAILY Qty: 10 0RF azithromycin 250 mg tablet See Rx Instructions PO .COMPLEX Qty: 6 0RF Rx Instructions: For 250 mg dose pack: take 500 mg today (day 1), then 250 mg for 4 days (days 2-5) PO benzonatate 100 mg capsule 100 mg PO TID PRN (Reason: cough) Qty: 14 0RF albuterol sulfate 90 mcg/actuation HFA aerosol inhaler 2 inh inhalation QID PRN (Reason: shortness of breath or wheezing) 30 Days Qty: 6.7 1RF naloxone [Narcan] 4 mg/actuation spray,non-aerosol 4 mg intranasal Q2M PRN (Reason: opioid overdose) Qty: 2 0RF Rx Instructions: spray 1 dose into ONE nostril; alternate nostrils w each dose until help arrives sertraline 25 mg tablet 25 mg PO DAILY Qty: 7 0RF clonidine HCl 0.1 mg tablet 0.1 mg PO TID PRN (Reason: anxiety) 3 Days Qty: 9 0RF sertraline 50 mg tablet 50 mg PO DAILY Qty: 30 0RF (DME) Reset-O Digital Gwendolyn (OUD) Misc See Rx Instructions .MEDSUPPLY Qty: 1 3RF Rx Instructions: As directed (3-4 times a week) 84 days
[2023-05-21] MEDS: predniSONE 20 MG TABLET 60 MG PO (03:57)
[2023-05-21] MEDS: Azithromycin 500 MG TABLET PO (03:57)
[2023-05-21] MEDS: Albuterol Sulfate 5 MG, Albuterol Sulfate (0.083%) 2.5 MG 7.5 MG INHALE ×2 (04:06→05:13)
[2023-05-21] MEDS: methylPREDNISolone Sod Succ 125 MG/2 ML VIAL IVPUSH (06:19)
[2023-05-21] MEDS: Magnesium Sulfate/H2O 2 GM/50 ML PIGGYBACK IV (06:19)
--- NOTE | 2023-05-21 07:01 | PC.NURSE ---
pt ambulated from his room to the bathroom w/ stand by assist. ambulated with a steady gait. no resp distress noted while walking. spO2 93% on room air.
--- NOTE | 2023-05-21 07:49 | PC.NURSE ---
per MD Reynolds, no plan to collect blood cultures at this time as pt recently finished a course of abx d/t bronchitis and was administered PO abx in ER.
--- NOTE | 2023-05-21 08:11 | PHA.MEDREC ---
Pharmacy Consult ? Medication Reconciliation Pharmacy has completed the medication reconciliation.
[2023-05-21 09:02] LABS: Adenovirus PCR Not Detected (Not Detect.); Bordetella parapertussis PCR Not Detected (Not Detect.); Bordetella pertussis PCR Not Detected (Not Detect.); Chlamydia pneumoniae PCR Not Detected (Not Detect.); Coronavirus 229E PCR Not Detected (Not Detect.); Coronavirus HKU1 PCR Not Detected (Not Detect.); Coronavirus NL63 PCR Not Detected (Not Detect.); Coronavirus OC43 PCR Not Detected (Not Detect.); Human metapneumovirus PCR Not Detected (Not Detect.); Influenza A PCR Not Detected (Not Detect.); Influenza B PCR Not Detected (Not Detect.); Mycoplasma pneumoniae PCR Not Detected (Not Detect.); Parainfluenza 1 PCR Not Detected (Not Detect.); Parainfluenza 2 PCR Not Detected (Not Detect.); Parainfluenza 3 PCR Not Detected (Not Detect.); Parainfluenza 4 PCR Not Detected (Not Detect.); RSV PCR Not Detected (Not Detect.); Rhino/Enterovirus PCR Not Detected (Not Detect.)
[2023-05-21] MEDS: Enoxaparin Sodium 40 MG/0.4 ML SYRINGE SUBCUT (09:18)
[2023-05-21] MEDS: cefTRIAXone sodium 1 GM in 0.9 % Sodium Chloride 50 ML IV (09:18)
[2023-05-21] MEDS: 0.9 % Sodium Chloride Flush 3 ML SYRINGE IVFLUSH ×2 (09:19→19:26)
[2023-05-21 09:45] LABS: SARS-CoV-2 PCR Not Detected (Not Detect.)
[2023-05-21] MEDS: Doxycycline Hyclate 100 MG in 0.9 % Sodium Chloride 250 ML 166.67 MG IV ×2 (10:16→19:26)
--- NOTE | 2023-05-21 13:45 | P.HPHOSP_ITS ---
History of Present Illness Date of Service: 05/21/23 Attending physician on admission: Zoey Roberts Chief Complaint: sob 42 y/o M History of asthma came to ED for shortness of breath and cough. The patient states that he has had a cough which is productive of thick sputum x1 month, he said initially had URI like symptoms. he states he has been feeling short of breath on and off for 1 week. The patient states that he has been using intranasal opiates. Patient states that he crushes up Percocet pills that he buys on the street and sniffed them3 to 4 times a day. He states that he used 3 crushed up Percocet prior to coming to the emergency department in use them intranasally. After using above he said the symptoms were getting worse and decided to come to the emergency room. Denies any new complaint of chest pain or abdominal pain or fever or chills or nausea or vomiting Denies any weakness or numbness. Lab imaging EKG reviewed: WBC count normal, BMP also looks fine-BUN of 19 creatinine is 0.76. cxr:No active cardiopulmonary disease. ekg: sinus tachycardia Review of Systems 2 Review of Systems: As above. [facility] Medical History Opioid use disorder Generalized anxiety disorder Erectile dysfunction Seasonal allergies History of opioid abuse Family History Father HTN (hypertension) Stroke Mother Hypothyroidism Anxiety Stroke Diabetes mellitus HTN (hypertension) Sister HTN (hypertension) Paternal Grandfather No problems noted. Paternal Grandmother Alzheimer's disease Brother No problems noted. Sister No problems noted. Daughter No problems noted. Daughter No problems noted. Surgical History History of amblyopia Social History Household Members: None Housing: Homeless Housing Other:: [place] Do you presently have visiting nurse or other home services: No Alcohol intake: never Patient Tobacco Use Status: Former Tobacco user Smoked in Last 30 Days: No e-Cigarette/Vaping Use: Currently Using Use of substances other than those prescribed or required for medical reasons: Yes Substance Use Type: Marijuana and Opiates Substance Use Frequency: Occasionally Last Used Substance: Hours (ago) Do you feel safe in your current relationship?: No Current Relationship Advance Directives: No Advance Directives Information Provided: Yes Do you have thoughts of harming others: None Do you have a plan to hurt others: No Plan Recently lost weight without trying: No Nutrition Risks: No Nutritional Risk Poor oral hygiene: No Meds Allergies Allergy/AdvReac Type Severity Reaction Status Date / Time shellfish derived Allergy Difficulty Verified 10/22/22 15:42 Breathing tree fruit Allergy Intermediate hives Uncoded 10/22/22 15:42 FRUIT Allergy Mild ITCHY Uncoded 10/22/22 15:42 THROAT Active Medications: Current Medications Albuterol/Ipratropium (Albuterol/Iprat 2.5/0.5mg 3 Ml Ampul.Neb) 3 ml INHALE RQ4H [facility] Last Admin: 05/21/23 11:51 Dose: Not Given Albuterol/Ipratropium (Albuterol/Iprat 2.5/0.5mg 3 Ml Ampul.Neb) 3 ml INHALE Q3H PRN PRN Reason: sob Enoxaparin Sodium (Enoxaparin Sodium 40 Mg/0.4 Ml Syringe) 40 mg SUBCUT DAILY [facility] Last Admin: 05/21/23 09:18 Dose: 40 mg Ceftriaxone Sodium 1 gm/ (Sodium Chloride) 50 mls @ 100 mls/hr IV DAILY [facility] Last Infusion: 05/21/23 10:16 Dose: Infused Doxycycline Hyclate 100 mg/ (Sodium Chloride) 250 mls @ 166.67 mls/hr IV BID [facility] Last Infusion: 05/21/23 12:24 Dose: Infused Methylprednisolone Sodium Succinate (Methylprednisolone Sod Succ 40 Mg/Ml Vial) 40 mg IVPUSH Q12H [facility] Last Admin: 05/21/23 07:36 Dose: Not Given Sodium Chloride (0.9 % Sodium Chloride Flush 3 Ml Syringe) 3 ml IVFLUSH QSHIFT [facility] Last Admin: 05/21/23 09:19 Dose: 3 ml Home Medications Medication Instructions Recorded Confirmed Last Taken Type albuterol sulfate 90 mcg/actuation 1 puff inhalation QID PRN wheezing 05/21/23 05/21/23 Unknown History aerosol inhaler Physical Exam 2 Vital Signs and Narrative: Vital Signs: Last Vital Signs Temp 98.2 F 05/21/23 13:20 Pulse 115 H 05/21/23 13:20 Resp 22 H 05/21/23 13:20 BP 139/89 05/21/23 13:20 Pulse Ox 95 05/21/23 13:20 O2 Del Method Room Air 05/21/23 13:20 Oxygen Flow Rate 6 05/21/23 02:10 BMI result Body Mass Index 26.5 Appearance: Alert.? Oriented X3.? sob. Eyes: Pupils equal, round and reactive to light.? Sclera nonicteric.? ENT: Pharynx normal.? Moist mucous membranes. cvs: rrr, [id number] , no murmur res: air entry diminshed ,b/l wheezing abd: no rebound or guarding ,nt, bs present. ext pulses present , no cyanosis . neuro: axo3 , nonfocal. Results Labs 05/21/23 02:25 05/21/23 02:25 Labs: Laboratory Results - last 24 hr 05/21/23 05/21/23 02:25 07:35 MCV 81.6 MCH 26.3 L MCHC 32.2 RDW 13.1 Plt Count 316 MPV 10.4 Immature Gran % (Auto) 0.7 H Neut % (Auto) 51.9 Lymph % (Auto) 23.0 [place] % (Auto) 8.4 Eos % (Auto) 15.2 H Baso % (Auto) 0.8 Lymph # (Auto) 2.5 [place] # (Auto) 0.9 Eos # (Auto) 1.6 H Baso # (Auto) 0.1 Abs Immat Gran (auto) 0.08 H Absolute Neuts (auto) 5.5 Absolute Nucleated RBC 0.000 Nucleated RBC % (auto) 0.0 Anion Gap 14 Estim Creat Clear Calc 114.2 Estimated GFR > 60 Random Glucose 151 H Calcium 10.0 Respiratory Panel Hurd See Note Adenovirus (Rapid PCR) Not Detected B.pert (TEM-PCR) Not Detected B.parapertussis DNA PCR Not Detected C. pneumoniae DNA (PCR) Not Detected Coronavirus OC43 (PCR) Not Detected Coronavirus HKU1 (PCR) Not Detected Coronavirus 229E (PCR) Not Detected Coronavirus NL63 (PCR) Not Detected Human Metapneumovir PCR Not Detected Influenza A (RT-PCR) Not Detected Influenza B (RT-PCR) Not Detected M. pneumoniae (PCR) Not Detected Parainfluenza 1 (PCR) Not Detected Parainfluenza 2 (PCR) Not Detected Parainfluenza 3 (PCR) Not Detected Parainfluenza 4 (PCR) Not Detected RSV (PCR) Not Detected Entero/Rhino (PCR) Not Detected SARS-CoV-2 RNA (RT-PCR) Not Detected Imaging Radiologist's Impressions: Impressions Chest X-Ray 05/21/23 02:20 IMPRESSION: No active cardiopulmonary disease. Assessment and Plan (1) Asthma exacerbation: Status: Acute (2) Opioid use disorder: Status: Acute Plan 42-year-old male with acute asthma exacerbation in setting drug use. 1. Acute asthma exacerbation(asthma mild intermittent): res panel Patient significantly short of breath with minimal exertion, talks in short sentences. Tachycardia likely secondary to nebs. Continue nebs, steroids, possible component of a bronchitis-will add antibiotics ceftriaxone. 2.OPOIOD inhaltion: Urine drug screen Addition consult 3. DVT prophylaxis subQ Lovenox. Patient will benefit from 2 midnight stay: Due to acute asthma exacerbation in the setting of opioid inhalation- nebs, IV steroids, antibiotics, respiratory status monitoring, if does not improved than will need Pulmonary consultation. Quality Stroke Does the patient have a stroke diagnosis?: No VTE Prior VTE?: No VTE Risk Level:: Medical - moderate - high VTE Device Contraindication: N/A - Device Ordered VTE Drug Contraindication: N/A - Med Ordered
[2023-05-21] MEDS: Albuterol/Iprat 2.5/0.5MG 3 ML AMPUL.NEB INHALE (15:55)
--- NOTE | 2023-05-21 17:02 | MHC.RECOVSUP ---
Met with pt in 359 to check in. Pt informs he is feeling ok right now and if he decides he would like the Methadone he will let us know. As of right now pt would just like to rest.
[2023-05-21] MEDS: methylPREDNISolone Sod Succ 40 MG/ML VIAL IVPUSH (19:26)
--- NOTE | 2023-05-21 20:44 | HO.ADDICT_ITS ---
History of Present Illness Date of Service: 05/21/23 Chief Complaint: asthma excerebation Reason for Consult: OUD Sources of Information: patient interviewed and chart reviewed HPI Narrative: Patient is a 42 year old male with OUD currently medically admitted with asthma exacerbation. Consult requested due to current opioid use. 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 Awake, alert, engaged in interview. Sad affect, discussing several life changes over the last several months, including loss of his car and place to live. He also reports being unable to see his daughter due to ongoing use. Current use -States he is using a bundle every 2 days. Has not been in treatment since late September/October when he was being treated with suboxone outpatient. At that time it was difficult for him to get complete induction due to fentanyl use. -He is tearful reporting that he wants to stop using, however hesitant to intitiate MOUD. -Reporting loose stools as his only withdrawal sx. Discussed benefits to starting medications before withdrawal sx worsened. Patient asked questions about methadone and then agreed to trial low dose. Medical Evaluation Reviewed: Yes Review of Systems Constitutional: Reports as per HPI Diagnostics Vital Signs (24Hr): Vital Signs - 24 hr 05/21/23 02:10 05/21/23 04:09 05/21/23 04:47 Temperature Pulse Rate 134 H 101 H 115 H Respiratory Rate 23 H 16 24 H Blood Pressure 180/96 H 129/83 Pulse Oximetry 99 92 Oxygen Delivery Method Nasal Cannula Room Air 05/21/23 05:13 05/21/23 06:00 05/21/23 07:01 Temperature Pulse Rate 115 H 122 H 118 H Respiratory Rate 24 H 20 16 Blood Pressure 148/96 H 151/90 H Pulse Oximetry 94 94 Oxygen Delivery Method Room Air Room Air 05/21/23 09:16 05/21/23 13:20 05/21/23 15:14 Temperature 98.2 F 98.3 F Pulse Rate 108 H 115 H 110 H Respiratory Rate 14 22 H 22 H Blood Pressure 137/89 139/89 140/81 H Pulse Oximetry 94 95 94 Oxygen Delivery Method Room Air Room Air Room Air 05/21/23 15:56 05/21/23 19:14 Temperature 98.6 F Pulse Rate 110 H 94 Respiratory Rate 22 H 17 Blood Pressure 156/80 H Pulse Oximetry 94 Oxygen Delivery Method Room Air BMI result Body Mass Index 26.5 Labs 05/21/23 02:25 05/21/23 02:25 Labs: Laboratory Results - last 48 hr 05/21/23 05/21/23 02:25 07:35 WBC 10.7 RBC 5.55 Hgb 14.6 Hct 45.3 MCV 81.6 MCH 26.3 L MCHC 32.2 RDW 13.1 Plt Count 316 MPV 10.4 Immature Gran % (Auto) 0.7 H Neut % (Auto) 51.9 Lymph % (Auto) 23.0 [place] % (Auto) 8.4 Eos % (Auto) 15.2 H Baso % (Auto) 0.8 Lymph # (Auto) 2.5 [place] # (Auto) 0.9 Eos # (Auto) 1.6 H Baso # (Auto) 0.1 Abs Immat Gran (auto) 0.08 H Absolute Neuts (auto) 5.5 Absolute Nucleated RBC 0.000 Nucleated RBC % (auto) 0.0 Sodium 141 Potassium 4.2 Chloride 100 Carbon Dioxide 31 H Anion Gap 14 BUN 19 H Creatinine 0.76 Estim Creat Clear Calc 114.2 Estimated GFR > 60 Random Glucose 151 H Calcium 10.0 Troponin I High Sens < 2.7 Respiratory Panel [place] See Note Adenovirus (Rapid PCR) Not Detected B.pert (TEM-PCR) Not Detected B.parapertussis DNA PCR Not Detected C. pneumoniae DNA (PCR) Not Detected Coronavirus OC43 (PCR) Not Detected Coronavirus HKU1 (PCR) Not Detected Coronavirus 229E (PCR) Not Detected Coronavirus NL63 (PCR) Not Detected Human Metapneumovir PCR Not Detected Influenza A (RT-PCR) Not Detected Influenza B (RT-PCR) Not Detected M. pneumoniae (PCR) Not Detected Parainfluenza 1 (PCR) Not Detected Parainfluenza 2 (PCR) Not Detected Parainfluenza 3 (PCR) Not Detected Parainfluenza 4 (PCR) Not Detected RSV (PCR) Not Detected Entero/Rhino (PCR) Not Detected SARS-CoV-2 RNA (RT-PCR) Not Detected Imaging Radiology Impressions: ITS Impressions Chest X-Ray 05/21/23 02:20 IMPRESSION: No active cardiopulmonary disease. Mental Status Exam Mental Status Exam Patient Appearance: Well Grooomed and Appropriate Level of Consciousness: Awake, Appropriate and Alert Patient Behavior: Appropriate and Guarded Mood Description: Sad Medications Medications Current Medications Albuterol/Ipratropium (Albuterol/Iprat 2.5/0.5mg 3 Ml Ampul.Neb) 3 ml INHALE RQ4H [facility] Last Admin: 05/21/23 19:51 Dose: Not Given Albuterol/Ipratropium (Albuterol/Iprat 2.5/0.5mg 3 Ml Ampul.Neb) 3 ml INHALE Q3H PRN PRN Reason: sob Enoxaparin Sodium (Enoxaparin Sodium 40 Mg/0.4 Ml Syringe) 40 mg SUBCUT DAILY [facility] Last Admin: 05/21/23 09:18 Dose: 40 mg Ceftriaxone Sodium 1 gm/ (Sodium Chloride) 50 mls @ 100 mls/hr IV DAILY [facility] Last Infusion: 05/21/23 10:16 Dose: Infused Doxycycline Hyclate 100 mg/ (Sodium Chloride) 250 mls @ 166.67 mls/hr IV BID [facility] Last Admin: 05/21/23 19:26 Dose: 166.67 mls/hr Methadone HCl (Methadone Hcl 20 Mg/2 Ml Oral.Conc) 20 mg PO DAILY PRN PRN Reason: Opiate Withdrawal Methylprednisolone Sodium Succinate (Methylprednisolone Sod Succ 40 Mg/Ml Vial) 40 mg IVPUSH Q12H [facility] Last Admin: 05/21/23 19:26 Dose: 40 mg Sodium Chloride (0.9 % Sodium Chloride Flush 3 Ml Syringe) 3 ml IVFLUSH QSHIFT [facility] Last Admin: 05/21/23 19:26 Dose: 3 ml Allergies Allergies Allergy/AdvReac Type Severity Reaction Status Date / Time shellfish derived Allergy Difficulty Verified 10/22/22 15:42 Breathing tree fruit Allergy Intermediate hives Uncoded 10/22/22 15:42 FRUIT Allergy Mild ITCHY Uncoded 10/22/22 15:42 THROAT Assessment & Plan Assessment & Plan (1) Opioid use disorder: Status: Acute Code(s): F11.99 - Opioid use, unspecified with unspecified opioid-induced disorder Assessment and Plan: * one time dose of methadone was ordered for patient and per RN, he declined dose * PRN methadone order entered * patient expressed interest in possible [facility] admission following hospitalization * 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 PMFSH Past Medical History Medical History Opioid use disorder Generalized anxiety disorder Erectile dysfunction Seasonal allergies History of opioid abuse Family History Family History Father HTN (hypertension) Stroke Mother Hypothyroidism Anxiety Stroke Diabetes mellitus HTN (hypertension) Sister HTN (hypertension) Paternal Grandfather No problems noted. Paternal Grandmother Alzheimer's disease Brother No problems noted. Sister No problems noted. Daughter No problems noted. Daughter No problems noted. Surgical History Surgical History History of amblyopia Social History Social History Household Members: None Housing: Homeless Housing Other:: [place] Do you presently have visiting nurse or other home services: No Alcohol intake: never Patient Tobacco Use Status: Former Tobacco user Smoked in Last 30 Days: No e-Cigarette/Vaping Use: Currently Using Use of substances other than those prescribed or required for medical reasons: Yes Substance Use Type: Marijuana and Opiates Substance Use Frequency: Occasionally Last Used Substance: Hours (ago) Currently Displaying Signs/Symptoms of Drug Intoxication Withdrawal: No Do you feel safe in your current relationship?: No Current Relationship Advance Directives: No Advance Directives Information Provided: Yes Do you have thoughts of harming others: None Do you have a plan to hurt others: No Plan Recently lost weight without trying: No Nutrition Risks: No Nutritional Risk Poor oral hygiene: No
[2023-05-22 00:36] VITALS: BP 134/76; PULSE 98; RESP 16; TEMP 36.9; O2SAT 92
[2023-05-22 04:00] VITALS: BP 150/87; PULSE 82; RESP 16; TEMP 36.7; O2SAT 93
[2023-05-22 07:18] VITALS: BP 150/98; PULSE 115; RESP 20; TEMP 36.4; O2SAT 96
[2023-05-22] MEDS: 0.9 % Sodium Chloride Flush 3 ML SYRINGE IVFLUSH (07:39)
[2023-05-22] MEDS: methylPREDNISolone Sod Succ 40 MG/ML VIAL IVPUSH (07:39)
[2023-05-22] MEDS: Albuterol/Iprat 2.5/0.5MG 3 ML AMPUL.NEB INHALE ×2 (07:48→11:37)
[2023-05-22] MEDS: cefTRIAXone sodium 1 GM in 0.9 % Sodium Chloride 50 ML IV (09:32)
--- NOTE | 2023-05-22 09:40 | HE.PHANOTE ---
RE IV TO PO 1. Date/time of review 05/22/2023 @0800 2. Current IV regimen including dose and frequency DOXY 100MG IV Q12H 3. Criteria making patient eligible for IV to PO conversion WBC WNL, AFEBRILE 4. New PO regimen, including dose and frequency DOXY 100MG Q12H 5. Date/time of first scheduled PO dose 05/22 @ 1000
[2023-05-22] MEDS: Doxycycline Monohydrate 100 MG CAPSULE PO (10:12)
--- NOTE | 2023-05-22 10:38 | MHC.RECOVRN ---
Met with pt to follow up, assess for withdrawal, and provide support. Pt laying in bed, awake, alert, easily engages in conversation. Appears comfortable, slightly diaphoretic. Pt reports feeling okay, and not sick yet. Pt reports he does not feel withdrawal until 72 hours since last use. Discussed methadone, pt states I want to research some more. Pt aware it is ordered if he begins to experience withdrawal. Pt denies questions or concerns at this time. Discussed with Gilma Mulligan APRN.
--- NOTE | 2023-05-22 11:19 | P.DS_ITS ---
DS: Providers Provider Date of Service: 05/22/23 Date of admission: 05/21/23 08:18 Date of discharge: 05/22/23 Primary care physician: Kristina Doe MD Consults: 05/21/23 08:19 Addiction Medicine Routine Consulting Provider: Addiction Covering Reason for consultation: Opioid use Has provider been notified: No Attending physician on discharge: Zoey Roberts Discharging clinician: Zoey Roberts DS: Diagnosis Discharge Diagnosis (1) Opioid use disorder: Status: Acute (2) Asthma exacerbation: Status: Acute DS: Summary Hospital Course Hospital Course: 42 y/o M History of asthma came to ED for shortness of breath and cough. The patient states that he has had a cough which is productive of thick sputum x1 month, he said initially had URI like symptoms. he states he has been feeling short of breath on and off for 1 week. The patient states that he has been us ing intranasal opiates. Patient states that he crushes up Percocet pills that he buys on the street and sniffed them3 to 4 times a day. He states that he used 3 crushed up Percocet prior to coming to the emergency department in use them intranasally. After using above he said the symptoms were getting worse and decided to come to the emergency room. Denies any new complaint of chest pain or abdominal pain or fever or chills or nausea or vomiting Denies any weakness or numbness. Lab imaging EKG reviewed: WBC count normal, BMP also looks fine-BUN of 19 creatinine is 0.76. cxr:No active cardiopulmonary disease. ekg: sinus tachycardia hospital course: patient came to hospital for sob after having percocet inhalation : possible asthma execerebation with acute bronchitis -started on nebs ,steriods and antibiotics -seems improved -going home with po steriods and ceftin 500 mg po bid for 6 more days . bp elevated -flactuating ,patient is not on meds , advised left style modifications ( low salt diet ,avoid drug use )-follow up outpatient with pcp. opoiod use -patient was strongly advised to avoid opoiod use ,seen by recovery team -he wants to think and decide further to start methadone outpatient. Time Attestation Discharge coordination time: Greater than 30 minutes Quality: Safe Use of Opioids Does Pt have an Active Cancer Diagnosis on the Problem List?: No Quality: Stroke Does the patient have a stroke diagnosis?: No Physical Exam Vital Signs: Vital Signs: Last Vital Signs Temp 97.5 F 05/22/23 07:18 Pulse 115 H 05/22/23 07:18 Resp 20 05/22/23 07:18 BP 150/98 H 05/22/23 07:18 Pulse Ox 96 05/22/23 07:18 O2 Del Method Room Air 05/22/23 07:18 Oxygen Flow Rate 6 05/21/23 02:10 BMI result Body Mass Index 26.5 Appearance: Alert.? Oriented X3.?not in any distress cvs: rrr, [id number] , no murmur res: air entry fair ,mo rales or wheezing abd: no rebound or guarding ,nt, bs present. ext pulses present , no cyanosis . neuro: axo3 , nonfocal. DS: Data Imaging Chest x-ray: Radiologist's impression: ITS Impressions Chest X-Ray 05/21/23 02:20 IMPRESSION: No active cardiopulmonary disease. Discharge Plan Discharge Anticipated Discharge Date/Time: 05/22/23 11:11 Patient Disposition: Home, Self-Care Discharge Diagnosis: asthma excerebation ,opoiod use Referrals: Kristina Doe MD [Primary Care Provider] - 1 Week Discharge Medications: New prednisone 20 mg tablet 40 mg PO DAILY Qty: 8 0RF cefuroxime axetil 500 mg tablet 500 mg PO BID Qty: 12 0RF Continued albuterol sulfate 90 mcg/actuation HFA aerosol inhaler 1 puff inhalation QID PRN (Reason: wheezing) Discharge Orders: Discharge Order (Routine); Ordered 05/22/23 Ordered By: Zoey Roberts Diet: Advance to usual diet Activity on Discharge: As tolerated Stand Alone Forms: Patient Portal Discharge page Care Plan Goals: patient came to hospital for sob after having percocet inhalation : possible asthma execerebation with acute bronchitis -started on nebs ,steriods and antibiotics -seems improved -going home with po steriods and ceftin 500 mg po bid for 6 more days . bp elevated -flactuating ,patient is not on meds , advised left style modifications ( low salt diet ,avoid drug use )-follow up outpatient with pcp. opoiod use -patient was strongly advised to avoid opoiod use ,seen by recovery team -he wants to think and decide further to start methadone outpatient. Health Concerns: as above. Plan of Treatment: as above. Assessment: as above.
[2023-05-22 11:37] VITALS: PULSE 101; RESP 20; O2SAT 93
== END 2023-05-22 13:55 | disposition home or self-care (01) | DRG 812 ==
LOC: HO.ED 07:45 → HO.EDOVER 08:23 → HO.S3 12:02
PROVIDERS: Admitting Provider Internal Medicine; Emergency Provider Emergency Medicine Emergency Medical Services; PCP Internal Medicine; Visit Provider Internal Medicine
DX: T40.2X1A Poisoning by other opioids, accidental (unintentional), initial encounter (principal); J45.21 Mild intermittent asthma with (acute) exacerbation; F11.90 Opioid use, unspecified, uncomplicated; Z87.891 Personal history of nicotine dependence; Z79.899 Other long term (current) drug therapy
CPT/HCPCS: 36415; 71045; 80048; 84484; 85025; 87633; 93005; 94640; 99221; 99285; J0696; J1650; J2920; J2930; J3475

== ENCOUNTER → 2023-05-21 08:18 | Outpatient (BNV) | payer OTHER, SELFPAY | PROVIDERS: Admitting Provider Internal Medicine; Emergency Provider Emergency Medicine Emergency Medical Services; PCP Internal Medicine; Visit Provider Nurse Practitioner Psychiatric/Mental Health | DX: F11.90 Opioid use, unspecified, uncomplicated (principal) | CPT/HCPCS: 99232 ==

== ENCOUNTER → 2023-05-21 08:18 | Outpatient (BNV) | payer OTHER, SELFPAY | PROVIDERS: Admitting Provider Internal Medicine; Emergency Provider Emergency Medicine Emergency Medical Services; PCP Internal Medicine; Visit Provider Internal Medicine | DX: J45.901 Unspecified asthma with (acute) exacerbation (principal); F11.99 Opioid use, unspecified with unspecified opioid-induced disorder | CPT/HCPCS: 99221; 99239 ==

== ENCOUNTER 2023-05-27 00:56 | Emergency (ER) | payer OTHER, SELFPAY ==
[2023-05-27 01:05] VITALS: BMI 30.7
--- NOTE | 2023-05-27 01:24 | ECG_ITS ---
Test Reason : CARDIAC ARREST Blood Pressure : / mmHG Vent. Rate : 143 BPM Atrial Rate : 143 BPM P-R Int : 166 ms QRS Dur : 086 ms QT Int : 306 ms P-R-T Axes : 060 094 047 degrees QTc Int : 472 ms Sinus tachycardia Rightward axis Low voltage QRS Nonspecific ST abnormality Abnormal ECG When compared with ECG of 21-MAY-2023 02:11, ST now depressed in Inferior leads Referred By: Generic ED Physician Electronically Signed By:VINOD BYRD MD
--- NOTE | 2023-05-27 01:40 | ED.CPR ---
HPI - CPR General Chief Complaint: Cardiac Arrest/CPR Stated Complaint: Cardiac arrest Time Seen by Provider: 05/27/23 01:39 Source: EMS Mode of arrival: EMS Limitations: altered mental status History of Present Illness HPI narrative: Patient with history of asthma history of opiate abuse crushes Percocet tablets and sniff 3 to 4 times a day was seen here on 05/21 for shortness of breath call EMS for shortness of breath when EMS sheet patient was in severe short of breath oxygen was applied via nasal cannula, nebulizing treatment with albuterol was given while in the truck patient became unresponsive developmental education instructor showed VFib shock was given by EMS along with 1 IM epi and 2 IV epi while enroute. No signs of trauma LMA was placed patient continued to have CPR while [place] when arrived in the ER pulses palpable only while doing CPR no spontaneous pulsations Related Data Home Medications Medication Instructions Recorded Confirmed albuterol sulfate 90 mcg/actuation 1 puff inhalation QID PRN wheezing 05/21/23 05/21/23 aerosol inhaler Previous Rx's Medication Instructions Recorded cefuroxime axetil 500 mg tablet 500 mg PO BID #12 tabs 05/22/23 prednisone 20 mg tablet 40 mg (2 x 20 mg) PO DAILY #8 tabs 05/22/23 Allergies Allergy/AdvReac Type Severity Reaction Status Date / Time shellfish derived Allergy Difficulty Verified 10/22/22 15:42 Breathing tree fruit Allergy Intermediate hives Uncoded 10/22/22 15:42 FRUIT Allergy Mild ITCHY Uncoded 10/22/22 15:42 THROAT Review of Systems Review of Systems: Yes unobtainable due to endotracheal tube PMFSH Past Medical History Medical History Opioid use disorder Generalized anxiety disorder Erectile dysfunction Seasonal allergies History of opioid abuse Surgical History History of amblyopia Family History Family History Father HTN (hypertension) Stroke Mother Hypothyroidism Anxiety Stroke Diabetes mellitus HTN (hypertension) Sister HTN (hypertension) Paternal Grandfather No problems noted. Paternal Grandmother Alzheimer's disease Brother No problems noted. Sister No problems noted. Daughter No problems noted. Daughter No problems noted. Social History Social History Household Members: None Housing: Homeless Housing Other:: camper Do you presently have visiting nurse or other home services: No Alcohol intake: never Patient Tobacco Use Status: Former Tobacco user e-Cigarette/Vaping Use: Currently Using Substance Use Type: Marijuana and Opiates Advance Directives: No Advance Directives Information Provided: Yes Physical Exam Vital Signs: Vital Signs: BMI result Body Mass Index 30.7 Appearance: Atraumatic CPR on board Eyes: Fixed dilated ENT: LMA in place Neck: Normal inspection. Neck supple. CVS: No spontaneous cardiac activity femoral pulse is palpable only while having cardiac compressions Respiratory: No respiratory distress. Equal air entry bilateral, no wheezing/rales/rhonchi Abdomen: Gaseous distended Skin: Skin warm and dry. Normal skin color. Normal skin turgor. No IVDA de la o Extremities: No lower extremity edema. Course Reevaluation(s) Reevaluation #1: Rosc achieved heart rate in 140s bounding pulses Time: 01:30 Medical Decision Making Medical Decision Making [facility] Narrative: Patient with acute respiratory arrest with history of asthma substance abuse , CPR continued transient ROSC achieved at 01:30 a.m. received multiple doses of epi shock 2 times a coarse VFib IV Narcan was given along with sodium bicarb without much response patient was intubated after 56 minutes of CPR without any response developmental education instructor showed asystole patient pronounced at 01:56 patient's family sister phone number [phone] informed medical biller coder called who accepted the patient Magui Pace case [id number] Bags of cocaine and heroin was found in the patient's pocket urine sent for tox screen Lab Data 05/27/23 01:44 05/27/23 01:43 Labs: Lab Results 05/27/23 05/27/23 05/27/23 Range/Units 01:03 01:43 01:44 WBC 13.4 H (4.8-10.8) X10*3/uL RBC 4.15 L D (4.60-5.80) X10*6/uL Hgb 11.2 L D (14.0-18.0) g/dl Hct 36.9 L (42.0-52.0) % MCV 88.9 D (80.0-98.0) fL MCH 27.0 (27.0-33.0) pg MCHC 30.4 L (31.0-36.0) g/dl RDW 13.2 (11.0-16.0) % Plt Count 218 D (160-400) X10*3/uL MPV 11.0 (9.4-12.4) fL Immature Gran % (Auto) Cancelled Neut % (Auto) Cancelled Lymph % (Auto) Cancelled [place] % (Auto) Cancelled Eos % (Auto) Cancelled Baso % (Auto) Cancelled Lymph # (Auto) Cancelled [place] # (Auto) Cancelled Eos # (Auto) Cancelled Baso # (Auto) Cancelled Abs Immat Gran (auto) Cancelled Absolute Neuts (auto) Cancelled Absolute Nucleated RBC 0.030 H (0.0-0.012) X10*3/uL Nucleated RBC % (auto) 0.2 (0.0-0.2) /100WBC Neutrophils % (Manual) 44 L (45-73) % Band Neutrophils % 6 H (3-5) % Lymphocytes % (Manual) 32 (20-40) % Monocytes % (Manual) 7 (2-11) % Eosinophils % (Manual) 5 H (0-4) % Metamyelocytes % 3 % Myelocytes % 3 % Abs Neuts (Manual) 6.7 (2.0-8.3) X10*3/uL Lymphocytes # (Manual) 4.3 (1.2-4.9) X10*3/uL Monocytes # (Manual) 0.9 (0.1-1.2) X10*3/uL Eosinophils # (Manual) 0.7 H (0.0-0.4) X10*3/uL Metamyelocytes # 0.4 X10*3/uL Myelocytes # 0.4 X10*/uL Platelet Estimate NORMAL (NORMAL) Plt Morphology Comment NOTED RBC Morphology NOTED Macrocytosis 1+ (5-14) /OIF Ovalocytes 1+ (5-14) /OIF Gianna Cells 3+ (>5) /OIF PT 12.9 (11.1-13.3) SEC INR 1.1 (0.9-1.1) APTT 45.1 H D (26.0-36.4) SEC D-Dimer High Sensitivty 6018 NG/ML VBG pH (7.32-7.43) VBG pCO2 mmHg VBG pO2 mmHg VBG HCO3 (22-26) mmol/L VBG O2 Saturation % VBG Base Excess mmol/L Sodium 143 (135-145) mmol/L Potassium 4.6 (3.3-5.1) mmol/L Chloride 106 (96-108) mmol/L Carbon Dioxide 15 L (22-29) mmol/L Anion Gap 27 H (12-20) BUN 16 (9-16) mg/dL Creatinine 0.99 (0.5-1.4) mg/dL Estim Creat Clear Calc 100.0 Estimated GFR > 60 POC Glucose 77 (60-115) mg/dL Random Glucose 268 H (60-115) mg/dL Calcium 8.4 D (8.4-10.2) mg/dL Troponin I High Sens 4.1 D (<3.5-35.0) ng/L 05/27/23 Range/Units 01:55 WBC (4.8-10.8) X10*3/uL RBC (4.60-5.80) X10*6/uL Hgb (14.0-18.0) g/dl Hct (42.0-52.0) % MCV (80.0-98.0) fL MCH (27.0-33.0) pg MCHC (31.0-36.0) g/dl RDW (11.0-16.0) % Plt Count (160-400) X10*3/uL MPV (9.4-12.4) fL Immature Gran % (Auto) Neut % (Auto) Lymph % (Auto) [place] % (Auto) Eos % (Auto) Baso % (Auto) Lymph # (Auto) [place] # (Auto) Eos # (Auto) Baso # (Auto) Abs Immat Gran (auto) Absolute Neuts (auto) Absolute Nucleated RBC (0.0-0.012) X10*3/uL Nucleated RBC % (auto) (0.0-0.2) /100WBC Neutrophils % (Manual) (45-73) % Band Neutrophils % (3-5) % Lymphocytes % (Manual) (20-40) % Monocytes % (Manual) (2-11) % Eosinophils % (Manual) (0-4) % Metamyelocytes % % Myelocytes % % Abs Neuts (Manual) (2.0-8.3) X10*3/uL Lymphocytes # (Manual) (1.2-4.9) X10*3/uL Monocytes # (Manual) (0.1-1.2) X10*3/uL Eosinophils # (Manual) (0.0-0.4) X10*3/uL Metamyelocytes # X10*3/uL Myelocytes # X10*/uL Platelet Estimate (NORMAL) Plt Morphology Comment RBC Morphology Macrocytosis /OIF Ovalocytes /OIF Gianna Cells /OIF PT (11.1-13.3) SEC INR (0.9-1.1) APTT (26.0-36.4) SEC D-Dimer High Sensitivty NG/ML VBG pH 6.97 L* (7.32-7.43) VBG pCO2 69 mmHg VBG pO2 76 mmHg VBG HCO3 16 L (22-26) mmol/L VBG O2 Saturation 86.0 % VBG Base Excess -15.8 mmol/L Sodium (135-145) mmol/L Potassium (3.3-5.1) mmol/L Chloride (96-108) mmol/L Carbon Dioxide (22-29) mmol/L Anion Gap (12-20) BUN (9-16) mg/dL Creatinine (0.5-1.4) mg/dL Estim Creat Clear Calc Estimated GFR POC Glucose (60-115) mg/dL Random Glucose (60-115) mg/dL Calcium (8.4-10.2) mg/dL Troponin I High Sens (<3.5-35.0) ng/L Procedures Intubation Time out performed: Yes sedative: none Laryngoscope: fiber optic video scope ET Tube Size: 7.5 ET Tube Uncuffed: Yes Tube Secured Depth (cm): 25 Tube Secured Location: teeth Tube Placement Confirmation: visualized tube passing through cords and equal breath sounds bilaterally Patient Tolerated Procedure: no complications Discharge Plan Discharge Clinical Impression: Cardiac arrest Patient Disposition: Date/Time: 05/27/23 01:56
[2023-05-27 01:51] LABS: Glucose, Whole Blood 77 mg/dL (60-115)
[2023-05-27 01:51] LABS: Hematocrit 36.9 % (42.0-52.0); Hemoglobin 11.2 g/dl (14.0-18.0); Mean Corpuscular HGB Conc 30.4 g/dl (31.0-36.0); Mean Corpuscular Volume 88.9 fL (80.0-98.0); NRBC Pct Auto 0.2 /100WBC (0.0-0.2); Platelet Count 218 X10*3/uL (160-400); Red Blood Count 4.15 X10*6/uL (4.60-5.80); Red Cell Distribution Width 13.2 % (11.0-16.0); White Blood Count 13.4 X10*3/uL (4.8-10.8)
[2023-05-27 01:58] LABS: Venous Blood Gas Refer to POC result
[2023-05-27 01:59] LABS: INTERNATIONAL NORM RATIO 1.1 (0.9-1.1); Prothrombin Time 12.9 SEC (11.1-13.3)
[2023-05-27 02:02] LABS: Partial Thromboplastin Time 45.1 SEC (26.0-36.4)
[2023-05-27 02:04] LABS: VBG Base Excess -15.8 mmol/L; VBG HCO3 16 mmol/L (22-26); VBG pCO2 69 mmHg; VBG pH 6.97 (7.32-7.43); VBG pO2 76 mmHg
[2023-05-27 02:06] LABS: Anion Gap 27 (12-20); Blood Urea Nitrogen 16 mg/dL (9-16); Calcium 8.4 mg/dL (8.4-10.2); Carbon Dioxide 15 mmol/L (22-29); Chloride 106 mmol/L (96-108); Estimated Glomerular Filt Rate > 60; Glucose Random 268 mg/dL (60-115); Potassium 4.6 mmol/L (3.3-5.1); Sodium 143 mmol/L (135-145)
[2023-05-27 02:07] LABS: D Dimer High Sensitivity 6018 NG/ML
[2023-05-27 02:11] LABS: Troponin-I High Sensitivity 4.1 ng/L (<3.5-35.0)
[2023-05-27 02:16] LABS: Band Neutrophils Percent 6 % (3-5); Eosinophils Absolute Manual 0.7 X10*3/uL (0.0-0.4); Eosinophils Percent Manual 5 % (0-4); Lymphocytes Absolute Manual 4.3 X10*3/uL (1.2-4.9); Lymphocytes Percent Manual 32 % (20-40); Metamyelocytes Absolute 0.4 X10*3/uL; Metamyelocytes Percent 3 %; Monocytes Absolute Manual 0.9 X10*3/uL (0.1-1.2); Monocytes Percent Manual 7 % (2-11); Myelocytes Absolute 0.4 X10*/uL; Myelocytes Percent 3 %; Neutrophils Absolute Manual 6.7 X10*3/uL (2.0-8.3); Neutrophils Percent Manual 44 % (45-73)
[2023-05-27 02:17] LABS: RBC Morphology NOTED
[2023-05-27 02:18] LABS: Macrocytosis 1+ (5-14) /OIF; Ovalocytes 1+ (5-14) /OIF; Platelet Estimate NORMAL (NORMAL); Platelet Morphology Comment NOTED
[2023-05-27 02:19] LABS: Burr Cells 3+ (>5) /OIF
--- NOTE | 2023-05-27 02:43 | PC.NURSE ---
[employer] called @ 2AM. Reference ID is [id number]. Spoke w/ Griselda Mott.
[2023-05-27 02:44] LABS: Amphetamine Screen Urine Not Detected (Not Detect); Barbiturates, Urine Not Detected (Not Detect); Benzodiazepines Screen Urine Not Detected (Not Detect); Cannabinoid Screen Urine Not Detected (Not Detect); Cocaine Screen Urine POSITIVE (Not Detect); Fentanyl, urine POSITIVE (Not Detect); Opiate Screen Urine POSITIVE (Not Detect); Phencyclidine Screen Urine Not Detected (Not Detect)
--- NOTE | 2023-05-27 03:28 | MHC.EDTECH ---
This tech assisted with this patient's care. belonging list was completed and [place] police [employer] took all of belongings.
--- NOTE | 2023-05-27 06:09 | MHC.EDTECH ---
TOD was [id number] Fish Receiver was called at [phone]. ME spoke to to , accepted case Nurse Contacted [employer], was considered eligible
== END 2023-05-27 06:21 | disposition expired ==
PROVIDERS: Emergency Provider Internal Medicine
DX: I46.9 Cardiac arrest, cause unspecified (principal); R06.02 Shortness of breath; F19.10 Other psychoactive substance abuse, uncomplicated; F11.10 Opioid abuse, uncomplicated; J45.909 Unspecified asthma, uncomplicated; Z79.899 Other long term (current) drug therapy
CPT/HCPCS: 31500; 36415; 80048; 80307; 82803; 82947; 84484; 85007; 85025; 85027; 85379; 85610; 85730; 93005; 96374; 96375; 99283; 99285; J0171; J0282; J0461; J2310